=== PATIENT | female | born 1985 | race Caucasian/White ===

== ENCOUNTER 2018-04-05 12:28 | Emergency (ER) | payer MEDICAID, OTHER ==
[~2018-04-05] VITALS: Ht 167.6 cm; Wt 122.2 kg
[~2018-04-05 12:28] MED LIST: GLY5T PO; METF-370 PO
[2018-04-05 15:06] LABS: Basophils # (auto) 0 uL; Basophils % (auto) 0.4 % (0.0-2.0); Eosinophils # (auto) 0.1 uL; Eosinophils % (auto) 1.1 % (0.0-7.0); Hematocrit 42.5 % (36.0-46.0); Hemoglobin 14.4 g/dL (12.2-16.2); Lymphocytes # (auto) 2.8 uL; Mean Corpuscular Hemoglobin 31.4 pg (28.0-32.0); Mean Corpuscular Hgb Conc. 33.8 g/dL (32.0-36.0); Mean Corpuscular Volume 92.7 fL (80.0-100.0); Monocytes # (auto) 0.9 uL; Monocytes % (auto) 7.7 % (0.0-12.0); Neutrophils # (auto) 7.5 uL; Neutrophils % (auto) 65.8 % (37.0-80.0); Nucleated Red Blood Cells % 0.3 %; Platelet Count (auto) 214 10^3/uL (140-450); Red Blood Cells 4.58 10^6/uL (4.0-5.20); Red Cell Distribution Width 13.6 % (11.8-14.3); White Blood Cell 11.4 10^3/uL (4.4-10.8)
[2018-04-05 15:46] LABS: Alanine Aminotransferase 116 U/L (13-56); Albumin 3.5 g/dL (3.4-5.0); Alkaline Phosphatase 112 U/L (45-117); Anion Gap 11 (5-15); Aspartate Aminotransferase 53 U/L (15-37); BUN/Creatinine Ratio 13.8; Bilirubin, Total 0.5 mg/dL (0.2-1.0); Blood Urea Nitrogen 11 mg/dL (7-18); Calcium 8.8 mg/dL (8.5-10.1); Carbon Dioxide 24 mmol/L (21-32); Chloride 100 mmol/L (98-107); GFR African American 106 mL/min; GFR Non-African American 87 mL/min; Glucose 361 mg/dL (74-106); Magnesium 2.3 mg/dL (1.6-2.6); Potassium 4.2 mmol/L (3.5-5.1); Sodium 135 mmol/L (136-145); Total Protein 7.7 g/dL (6.4-8.2)
[2018-04-05 18:00] VITALS: BP 135/76
== END 2018-04-05 18:10 | disposition home or self-care (01) ==
LOC: ER 12:28
DX: L03.116 Cellulitis of left lower limb (principal); E11.65 Type 2 diabetes mellitus with hyperglycemia; E78.5 Hyperlipidemia, unspecified; I10 Essential (primary) hypertension; Z79.4 Long term (current) use of insulin; Z88.6 Allergy status to analgesic agent
CPT/HCPCS: 36415; 71046; 80053; 82962; 83735; 84484; 85025; 93005

== ENCOUNTER 2018-04-20 07:19 | Emergency (ER) | payer MEDICAID, OTHER ==
[~2018-04-20] VITALS: Ht 165.1 cm; Wt 117.9 kg
[2018-04-20] MEDS ORDERED: SODIUM CHLORIDE 0.9% 1,000 ML IV ONE ×2 (08:19)
[2018-04-20] MEDS ORDERED: InsuLIN REG 1unit/0.01ml Soln (100units/ml) IV ONE (08:30)
[2018-04-20 08:32] LABS: Basophils # (auto) 0.1 uL; Basophils % (auto) 0.5 % (0.0-2.0); Eosinophils # (auto) 0.2 uL; Eosinophils % (auto) 1.4 % (0.0-7.0); Hematocrit 41.4 % (36.0-46.0); Hemoglobin 13.6 g/dL (12.2-16.2); Lymphocytes # (auto) 3.3 uL; Lymphocytes % (auto) 28.7 % (10.0-50.0); Mean Corpuscular Hemoglobin 30.3 pg (28.0-32.0); Mean Corpuscular Hgb Conc. 32.7 g/dL (32.0-36.0); Mean Corpuscular Volume 92.7 fL (80.0-100.0); Neutrophils # (auto) 6.9 uL; Neutrophils % (auto) 60.4 % (37.0-80.0); Nucleated Red Blood Cells % 0.2 %; Platelet Count (auto) 233 10^3/uL (140-450); Red Blood Cells 4.47 10^6/uL (4.0-5.20); Red Cell Distribution Width 13.4 % (11.8-14.3); White Blood Cell 11.4 10^3/uL (4.4-10.8)
[2018-04-20 08:51] LABS: Albumin 3.5 g/dL (3.4-5.0); BUN/Creatinine Ratio 20.5; Bilirubin, Total 0.3 mg/dL (0.2-1.0); Calcium 8.7 mg/dL (8.5-10.1); Potassium 4.3 mmol/L (3.5-5.1); Total Protein 7.3 g/dL (6.4-8.2)
[2018-04-20 09:18] LABS: Urine Bacteria FEW /hpf (None Seen); Urine Blood 1+ /uL (Negative); Urine Specific Gravity 1.031 (1.001-1.035); Urine WBC 1 /hpf (0 - 5)
[2018-04-20 10:04] VITALS: BP 112/69
== END 2018-04-20 11:45 | disposition home or self-care (01) ==
LOC: EDBD 07:19 → ER 07:19
DX: E11.65 Type 2 diabetes mellitus with hyperglycemia (principal); I10 Essential (primary) hypertension; E78.5 Hyperlipidemia, unspecified; Z79.84 Long term (current) use of oral hypoglycemic drugs
CPT/HCPCS: 36415; 70450; 80053; 81001; 82962; 84702; 85025; 96361; 96374; 99285; J1815

== ENCOUNTER 2018-11-13 22:54 | Emergency (ER) | payer MEDICAID ==
[~2018-11-13] VITALS: Ht 165.1 cm; Wt 131.5 kg
[2018-11-13] MEDS ORDERED: InsuLIN REG 1unit/0.01ml Soln (100units/ml) IV ONE (23:45)
[2018-11-13] MEDS ORDERED: SODIUM CHLORIDE 0.9% 1,000 ML IV ONE (23:45)
[2018-11-13 23:53] LABS: Basophils # (auto) 0.1 uL; Eosinophils # (auto) 0.2 uL; Hematocrit 44.1 % (36.0-46.0); Hemoglobin 15.1 g/dL (12.2-16.2); Lymphocytes # (auto) 4.1 uL; Lymphocytes % (auto) 35.3 % (10.0-50.0); Mean Corpuscular Hemoglobin 31.2 pg (28.0-32.0); Mean Corpuscular Hgb Conc. 34.2 g/dL (32.0-36.0); Mean Corpuscular Volume 91.2 fL (80.0-100.0); Monocytes # (auto) 0.8 uL; Monocytes % (auto) 6.6 % (0.0-12.0); Neutrophils # (auto) 6.4 uL; Neutrophils % (auto) 55.1 % (37.0-80.0); Platelet Count (auto) 247 10^3/uL (140-450); Red Blood Cells 4.83 10^6/uL (4.0-5.20); White Blood Cell 11.7 10^3/uL (4.4-10.8)
[2018-11-13 23:58] LABS: Urine Bacteria NONE SEEN /hpf (None Seen); Urine Blood TRACE /uL (Negative); Urine Budding Yeast OCCASIONAL /hpf (None Seen); Urine Specific Gravity 1.031 (1.001-1.035); Urine WBC <1 /hpf (0 - 5)
[2018-11-14 00:06] LABS: Chloride 94 mmol/L (98-107); Sodium 129 mmol/L (136-145)
[2018-11-14 00:09] LABS: Albumin 3.2 g/dL (3.4-5.0); Alcohol, Urine < 3.0 mg/dL (0-5); Calcium 8.1 mg/dL (8.5-10.1); Carbon Dioxide 21 mmol/L (21-32)
[2018-11-14 00:11] LABS: Amphetamine Screen, Urine NEGATIVE (NEGATIVE); Barbiturate Scree,Urine NEGATIVE (NEGATIVE); Benzodiazephine Screen, Urine NEGATIVE (NEGATIVE); Cocaine Screen, Urine NEGATIVE (NEGATIVE); Opiate Scree,Urine NEGATIVE (NEGATIVE); Phencyclidine Screen, Urine NEGATIVE (NEGATIVE)
[2018-11-14 00:12] LABS: GFR African American 93 mL/min; GFR Non-African American 77 mL/min
[2018-11-14 00:15] LABS: Alkaline Phosphatase 230 U/L (45-117); Bilirubin, Total 0.3 mg/dL (0.2-1.0); Total Protein 7.6 g/dL (6.4-8.2)
[2018-11-14 00:17] LABS: BUN/Creatinine Ratio 21.3; Blood Urea Nitrogen 19 mg/dL (7-18)
[2018-11-14 00:33] LABS: Aspartate Aminotransferase 44 U/L (15-37); Glucose 576 mg/dL (74-106)
[2018-11-14 00:34] LABS: Alanine Aminotransferase 42 U/L (13-56)
[2018-11-14 00:38] LABS: Cannabinoid Screen, Urine NEGATIVE (NEGATIVE)
[2018-11-14 01:37] LABS: Anion Gap 14 (5-15)
[2018-11-14] MEDS ORDERED: SODIUM CHLORIDE 0.9% 1,000 ML IV ONE (05:30)
[2018-11-14 05:43] VITALS: BP 115/61
== END 2018-11-14 05:48 | disposition home or self-care (01) ==
LOC: ER 22:54
DX: E11.65 Type 2 diabetes mellitus with hyperglycemia (principal); R46.89 Other symptoms and signs involving appearance and behavior; I10 Essential (primary) hypertension; E78.00 Pure hypercholesterolemia, unspecified; Z88.8 Allergy status to other drugs, medicaments and biological substances; Z79.899 Other long term (current) drug therapy
CPT/HCPCS: 36415; 36600; 71045; 80053; 80307; 81001; 82010; 82805; 82962; 83880; 84484; 84702; 85025; 85379; 96361; 96374; 99284; J1815; J7030

== ENCOUNTER 2020-12-30 19:58 | Inpatient (IN) | payer MEDICAID ==
[~2020-12-30] VITALS: Ht 167.6 cm; Wt 113.3 kg
[~2020-12-30 19:58] MED LIST changes: -GLY5T PO; +GLYB5TAB9 PO
[2020-12-30] MEDS ORDERED: SODIUM CHLORIDE 0.9% 1,000 ML IV ONE (21:15)
[2020-12-30 22:15] LABS: Basophils # (auto) 0.1 10 ^3/uL (0-0.2); Basophils % (auto) 0.6 % (0.0-2.0); Eosinophils # (auto) 0.3 10 ^3/uL (0-0.8); Eosinophils % (auto) 3.1 % (0.0-7.0); Hematocrit 35.8 % (36.0-46.0); Hemoglobin 12.6 g/dL (12.2-16.2); Lymphocytes # (auto) 3.3 10 ^3/uL (0.4-5.4); Lymphocytes % (auto) 30.1 % (10.0-50.0); Mean Corpuscular Hemoglobin 32.1 pg (28.0-32.0); Mean Corpuscular Hgb Conc. 35.2 g/dL (32.0-36.0); Mean Corpuscular Volume 91.2 fL (80.0-100.0); Monocytes # (auto) 0.8 10 ^3/uL (0-1.3); Monocytes % (auto) 7.3 % (0.0-12.0); Neutrophils # (auto) 6.4 10 ^3/uL (1.6-8.6); Neutrophils % (auto) 58.9 % (37.0-80.0); Nucleated Red Blood Cells % 0.1 %; Platelet Count (auto) 299 10^3/uL (140-450); Red Blood Cells 3.93 10^6/uL (4.0-5.20); Red Cell Distribution Width 15.2 % (11.8-14.3); White Blood Cell 10.8 10^3/uL (4.4-10.8)
[2020-12-30 22:37] LABS: Urine Bacteria NONE SEEN /hpf (None Seen); Urine Blood Negative /uL (Negative); Urine Specific Gravity 1.031 (1.001-1.035); Urine WBC 1 /hpf (0 - 5)
[2020-12-30 22:43] LABS: Albumin 3.1 g/dL (3.4-5.0); BUN/Creatinine Ratio 24.5; Bilirubin, Total 0.3 mg/dL (0.2-1.0); Calcium 8.7 mg/dL (8.5-10.1); Total Protein 8.2 g/dL (6.4-8.2)
[2020-12-30 22:55] LABS: Alcohol, Urine < 3.0 mg/dL (0-10); Amphetamine Screen, Urine NEGATIVE (NEGATIVE); Barbiturate Scree,Urine NEGATIVE (NEGATIVE); Benzodiazephine Screen, Urine NEGATIVE (NEGATIVE); Cannabinoid Screen, Urine NEGATIVE (NEGATIVE); Opiate Scree,Urine NEGATIVE (NEGATIVE); Phencyclidine Screen, Urine NEGATIVE (NEGATIVE)
[2020-12-30 23:00] LABS: Cocaine Screen, Urine NEGATIVE (NEGATIVE)
[2020-12-30] MEDS ORDERED: PIPERACILLIN-TAZOB 3.375GM 100 ML IV ONE (23:00)
[2020-12-30] MEDS ORDERED: InsuLIN REG 1unit/0.01ml Soln (100units/ml) IV ONE (23:00)
[2020-12-30] MEDS ORDERED: VANCOMYCIN 1GM/250ML 250 ML IV ONE (23:00)
[2020-12-31] MEDS ORDERED: VANCOMYCIN PER PHARMACY 0 MG IV SCH (02:45)
[2020-12-31] MEDS ORDERED: MORPHINE SULF INJ 2 MG/ML SYRINGE 1ML IV PRN (02:45)
[2020-12-31] MEDS ORDERED: DEXTROSE (50%) 50ML SYRG IV PRN ×2 (02:45→10:45)
[2020-12-31] MEDS ORDERED: NITROGLYCERIN 0.4 MG SL TAB SL PRN (02:45)
[2020-12-31] MEDS ORDERED: TEMAZEPAM 15 MG CAP PO PRN (02:45)
[2020-12-31 06:00] VITALS: BP 131/72
[2020-12-31] MEDS ORDERED: ACCU-CHEK COMFORT CURVE STRIP VI SCH (06:00)
[2020-12-31] MEDS ORDERED: InsuLIN REG 1unit/0.01ml Soln (100units/ml) SC SCH (06:00)
[2020-12-31] MEDS: ONDANSETRON HCL 4 MG/2 ML VIAL IV PRN (06:41)
[2020-12-31 08:30] VITALS: BP 144/83
[2020-12-31] MEDS ORDERED: cefTRIAXone 1GM/50ML D5W 50 ML IV SCH (09:00)
[2020-12-31] MEDS: FAMOTIDINE 20 MG TAB PO SCH ×2 (09:32→21:46)
[2020-12-31] MEDS: VANCOMYCIN 1GM/250ML 250 ML IV SCH ×2 (10:00→17:46)
[2020-12-31] MEDS ORDERED: INSULIN LANTUS (GLARGINE) 1 /0.01ml (100units/ml) SC ONE (10:45)
[2020-12-31 11:59] LABS: INR 1.07 (0.9-1.15); Partial Thromboplastin Time 22.5 sec (23.0-31.2)
[2020-12-31] MEDS: InsuLIN REG 1unit/0.01ml Soln (100units/ml) SC SCH ×3 (12:15→23:51)
[2020-12-31 12:30] VITALS: BP 155/92
[2020-12-31] MEDS: ACCU-CHEK COMFORT CURVE STRIP VI SCH ×3 (12:35→23:46)
[2020-12-31 17:00] VITALS: BP 136/73
[2020-12-31] MEDS ORDERED: diphenhdrAMINE HCL 50 MG/1 ML VL IV ONE (19:00)
[2020-12-31] MEDS ORDERED: FAMOTIDINE (10MG/ML) 2ML VL IV ONE (19:00)
[2020-12-31] MEDS ORDERED: diphenhdrAMINE HCL 50 MG/1 ML VL ONE (19:02)
[2020-12-31] MEDS ORDERED: methylPREDNISolone SOD SUCC 125 MG/2 ML VL IV ONE (19:15)
[2020-12-31] MEDS: INSULIN LANTUS (GLARGINE) 1 /0.01ml (100units/ml) SC SCH (21:47)
[2020-12-31 22:00] VITALS: BP 133/83
[2020-12-31] MEDS: ACETAMINOPHEN 325 MG TAB PO PRN (22:53)
[2021-01-01] MEDS: VANCOMYCIN 1GM/250ML 250 ML IV SCH ×4 (01:57→22:06)
[2021-01-01 05:00] VITALS: BP 129/80
[2021-01-01 05:54] LABS: Basophils # (auto) 0 10 ^3/uL (0-0.2); Basophils % (auto) 0.2 % (0.0-2.0); Eosinophils # (auto) 0 10 ^3/uL (0-0.8); Hematocrit 37.6 % (36.0-46.0); Lymphocytes # (auto) 1.4 10 ^3/uL (0.4-5.4); Lymphocytes % (auto) 9.2 % (10.0-50.0); Mean Corpuscular Hemoglobin 31.7 pg (28.0-32.0); Mean Corpuscular Hgb Conc. 34.5 g/dL (32.0-36.0); Mean Corpuscular Volume 91.9 fL (80.0-100.0); Monocytes # (auto) 0.2 10 ^3/uL (0-1.3); Monocytes % (auto) 1.5 % (0.0-12.0); Neutrophils # (auto) 13.5 10 ^3/uL (1.6-8.6); Neutrophils % (auto) 89.1 % (37.0-80.0); Nucleated Red Blood Cells % 0.1 %; Platelet Count (auto) 274 10^3/uL (140-450); Red Blood Cells 4.09 10^6/uL (4.0-5.20); Red Cell Distribution Width 15.4 % (11.8-14.3); White Blood Cell 15.1 10^3/uL (4.4-10.8)
[2021-01-01 06:13] LABS: BUN/Creatinine Ratio 28.6; Calcium 8.7 mg/dL (8.5-10.1); Potassium 4.1 mmol/L (3.5-5.1)
[2021-01-01] MEDS: ACCU-CHEK COMFORT CURVE STRIP VI SCH ×4 (06:14→23:26)
[2021-01-01] MEDS: InsuLIN REG 1unit/0.01ml Soln (100units/ml) SC SCH ×4 (06:19→23:32)
[2021-01-01 09:00] VITALS: BP 126/73
[2021-01-01] MEDS ORDERED: CEFTRIAXONE SODIUM 2 GM in D5W 5% 50 ML IV SCH (10:00)
[2021-01-01] MEDS: FAMOTIDINE 20 MG TAB PO SCH ×2 (10:26→22:06)
[2021-01-01] MEDS: INSULIN LANTUS (GLARGINE) 1 /0.01ml (100units/ml) SC SCH (10:27)
[2021-01-01] MEDS: ACETAMINOPHEN 325 MG TAB PO PRN (12:36)
[2021-01-01] MEDS: INSULIN 70/30 1unit/0.01ml Susp (100units/ml) SC SCH ×2 (12:38→18:18)
[2021-01-01 12:45] VITALS: BP 132/87
[2021-01-01 17:01] VITALS: BP 109/86
[2021-01-01 22:00] VITALS: BP 165/97
[2021-01-02] MEDS ORDERED: ACE650RS PR (00:32)
[2021-01-02] MEDS ORDERED: METF-370 PO (00:32)
[2021-01-02] MEDS ORDERED: CEPH500C PO (00:32)
[2021-01-02] MEDS ORDERED: SULF400T11 PO (00:32)
[2021-01-02] MEDS: VANCOMYCIN 1GM/250ML 250 ML IV SCH ×4 (04:02→22:08)
[2021-01-02 05:00] VITALS: BP 135/76
[2021-01-02] MEDS: InsuLIN REG 1unit/0.01ml Soln (100units/ml) SC SCH ×4 (06:00→23:34)
[2021-01-02] MEDS: ACCU-CHEK COMFORT CURVE STRIP VI SCH ×4 (06:05→23:28)
[2021-01-02] MEDS: INSULIN 70/30 1unit/0.01ml Susp (100units/ml) SC SCH ×3 (08:00→17:30)
[2021-01-02 08:57] VITALS: BP 117/66
[2021-01-02] MEDS ORDERED: fentaNYL CITRATE 100 MCG/2 ML VL ONE (09:19)
[2021-01-02] MEDS ORDERED: PROPOFOL 10 MG/ML 20 ML IV ONE (09:20)
[2021-01-02] MEDS ORDERED: ONDANSETRON HCL 4 MG/2 ML VIAL ONE (09:20)
[2021-01-02] MEDS ORDERED: SODIUM CHLORIDE LOCK 10 ML ONE (09:20)
[2021-01-02] MEDS ORDERED: MIDAZOLAM HCL 1MG/1ML-2 ML VIAL ONE (09:20)
[2021-01-02] MEDS: ACETAMINOPHEN 325 MG TAB PO PRN (09:28)
[2021-01-02] MEDS ORDERED: ceFAZolin 1GM/50ML 100 ML IV ONE (09:41)
[2021-01-02] MEDS ORDERED: ceFAZolin 1GM VL ONE (10:21)
[2021-01-02] MEDS ORDERED: MORPHINE SULFATE 4 MG/ML SYR/VIAL IV PRN (10:30)
[2021-01-02] MEDS ORDERED: METOCLOPRAMIDE HCL 5MG/ml INJ 2ml VIAL IV PRN (10:30)
[2021-01-02] MEDS ORDERED: HYDROmorphone HCL 2 MG/ML VL IV PRN (10:30)
[2021-01-02 13:45] VITALS: BP 125/80
[2021-01-02 14:47] LABS: Basophils # (auto) 0.1 10 ^3/uL (0-0.2); Basophils % (auto) 0.6 % (0.0-2.0); Eosinophils # (auto) 0.1 10 ^3/uL (0-0.8); Hematocrit 35.4 % (36.0-46.0); Hemoglobin 12.1 g/dL (12.2-16.2); Lymphocytes # (auto) 2.4 10 ^3/uL (0.4-5.4); Lymphocytes % (auto) 18.9 % (10.0-50.0); Mean Corpuscular Hemoglobin 31.5 pg (28.0-32.0); Mean Corpuscular Volume 92.4 fL (80.0-100.0); Monocytes # (auto) 0.8 10 ^3/uL (0-1.3); Monocytes % (auto) 6.2 % (0.0-12.0); Neutrophils # (auto) 9.3 10 ^3/uL (1.6-8.6); Neutrophils % (auto) 73.3 % (37.0-80.0); Platelet Count (auto) 239 10^3/uL (140-450); Red Blood Cells 3.84 10^6/uL (4.0-5.20); Red Cell Distribution Width 15.8 % (11.8-14.3); White Blood Cell 12.7 10^3/uL (4.4-10.8)
[2021-01-02 15:06] LABS: Calcium 8.2 mg/dL (8.5-10.1); Potassium 4.4 mmol/L (3.5-5.1)
[2021-01-02 15:12] LABS: Cholesterol 193 mg/dL (< 200); HDL Cholesterol 36 mg/dL (40-59); LDL Cholesterol 124 mg/dL (< 100); Triglycerides 221 mg/dL (< 150)
[2021-01-02] MEDS: FAMOTIDINE 20 MG TAB PO SCH ×2 (16:35→22:08)
[2021-01-02 16:42] VITALS: BP 123/74
[2021-01-02 22:00] VITALS: BP 116/65
[2021-01-03] MEDS: VANCOMYCIN 1GM/250ML 250 ML IV SCH ×2 (03:54→10:00)
[2021-01-03] MEDS: ACETAMINOPHEN 325 MG TAB PO PRN (04:01)
[2021-01-03 05:00] VITALS: BP 125/78
[2021-01-03] MEDS: InsuLIN REG 1unit/0.01ml Soln (100units/ml) SC SCH ×4 (05:57→23:36)
[2021-01-03] MEDS: ACCU-CHEK COMFORT CURVE STRIP VI SCH ×3 (06:00→18:00)
[2021-01-03] MEDS: INSULIN 70/30 1unit/0.01ml Susp (100units/ml) SC SCH ×3 (08:30→17:30)
[2021-01-03] MEDS: FAMOTIDINE 20 MG TAB PO SCH (08:52)
[2021-01-03 09:00] VITALS: BP 101/68
[2021-01-03] MEDS ORDERED: FLUCONAZOLE 100 MG TAB PO ONE (10:00)
[2021-01-03] MEDS ORDERED: levoFLOXacin 750MG 150 ML IV SCH (10:00)
[2021-01-03] MEDS: HYDROcodone-ACET 5/325MG TAB PO PRN ×3 (10:45→21:46)
[2021-01-03 13:20] VITALS: BP 111/78
[2021-01-03 16:29] VITALS: BP 103/55
[2021-01-03] MEDS ORDERED: ERTAPENEM SOD INJ 1 GM in SODIUM CHL 0.9% 50 ML IV ONE (16:45)
[2021-01-03] MEDS ORDERED: MEROPENEM 1GM IVPB 100 ML IV SCH (18:00)
[2021-01-03] MEDS: metFORMIN HYDROCHLORIDE 500 MG TAB PO SCH (18:00)
[2021-01-03 22:00] VITALS: BP 104/58
[2021-01-04] MEDS: ACCU-CHEK COMFORT CURVE STRIP VI SCH ×4 (00:05→18:00)
[2021-01-04] MEDS: ONDANSETRON HCL 4 MG/2 ML VIAL IV PRN (03:29)
[2021-01-04 05:00] VITALS: BP 109/68
[2021-01-04] MEDS: InsuLIN REG 1unit/0.01ml Soln (100units/ml) SC SCH ×3 (06:20→18:14)
[2021-01-04] MEDS: metFORMIN HYDROCHLORIDE 500 MG TAB PO SCH ×2 (08:00→18:00)
[2021-01-04] MEDS: INSULIN 70/30 1unit/0.01ml Susp (100units/ml) SC SCH ×3 (08:00→17:30)
[2021-01-04 09:28] VITALS: BP 108/70
[2021-01-04] MEDS: levoFLOXacin 750MG 150 ML IV SCH (10:00)
[2021-01-04] MEDS: ACETAMINOPHEN 325 MG TAB PO PRN (10:27)
[2021-01-04] MEDS: ERTAPENEM SOD INJ 1 GM in SODIUM CHL 0.9% 50 ML IV SCH (10:27)
[2021-01-04 12:13] LABS: INR 1.07 (0.9-1.15); Partial Thromboplastin Time 25.1 sec (23.0-31.2)
[2021-01-04 12:58] VITALS: BP 133/90
[2021-01-04 16:54] VITALS: BP 132/54
[2021-01-04] MEDS: HYDROcodone-ACET 5/325MG TAB PO PRN (20:04)
[2021-01-04 22:00] VITALS: BP 114/77
[2021-01-05] MEDS: ACCU-CHEK COMFORT CURVE STRIP VI SCH ×4 (00:08→18:11)
[2021-01-05] MEDS: InsuLIN REG 1unit/0.01ml Soln (100units/ml) SC SCH ×3 (00:10→12:30)
[2021-01-05 05:00] VITALS: BP 127/78
[2021-01-05] MEDS: HYDROcodone-ACET 5/325MG TAB PO PRN ×2 (06:10→21:34)
[2021-01-05 08:30] VITALS: BP 124/77
[2021-01-05] MEDS: ERTAPENEM SOD INJ 1 GM in SODIUM CHL 0.9% 50 ML IV SCH (08:31)
[2021-01-05] MEDS: metFORMIN HYDROCHLORIDE 500 MG TAB PO SCH ×2 (08:32→18:15)
[2021-01-05] MEDS: INSULIN 70/30 1unit/0.01ml Susp (100units/ml) SC SCH ×3 (08:34→18:15)
[2021-01-05] MEDS ORDERED: FLUCONAZOLE 100 MG TAB PO ONE (11:45)
[2021-01-05 12:30] VITALS: BP 117/81
[2021-01-05] MEDS: levoFLOXacin 750MG 150 ML IV SCH (12:30)
[2021-01-05] MEDS: diphenhdrAMINE HCL 25 MG CAP PO SCH ×2 (12:49→22:54)
[2021-01-05] MEDS: ACETAMINOPHEN 325 MG TAB PO PRN (15:32)
[2021-01-05 17:00] VITALS: BP 114/70
[2021-01-05 22:00] VITALS: BP 119/85
[2021-01-06] MEDS: InsuLIN REG 1unit/0.01ml Soln (100units/ml) SC SCH ×4 (00:13→18:00)
[2021-01-06] MEDS: ACCU-CHEK COMFORT CURVE STRIP VI SCH ×4 (00:13→18:03)
[2021-01-06 05:00] VITALS: BP 127/79
[2021-01-06] MEDS: diphenhdrAMINE HCL 25 MG CAP PO SCH ×5 (05:44→21:09)
[2021-01-06] MEDS: INSULIN 70/30 1unit/0.01ml Susp (100units/ml) SC SCH ×3 (08:02→18:02)
[2021-01-06] MEDS: metFORMIN HYDROCHLORIDE 500 MG TAB PO SCH ×2 (08:02→18:02)
[2021-01-06] MEDS: ERTAPENEM SOD INJ 1 GM in SODIUM CHL 0.9% 50 ML IV SCH (08:56)
[2021-01-06] MEDS: levoFLOXacin 750MG 150 ML IV SCH (08:56)
[2021-01-06] MEDS: FLUCONAZOLE 100 MG TAB PO SCH (08:56)
[2021-01-06 09:00] VITALS: BP 127/86
[2021-01-06] MEDS ORDERED: LACTULOSE 20Gm/30ML SOLN PO PRN (10:15)
[2021-01-06] MEDS: LORazepam 0.5 MG TAB PO PRN ×2 (12:00→22:05)
[2021-01-06] MEDS: HYDROcodone-ACET 5/325MG TAB PO PRN (12:00)
[2021-01-06 13:00] VITALS: BP 129/91
[2021-01-06 14:48] LABS: Basophils # (auto) 0.1 10 ^3/uL (0-0.2); Basophils % (auto) 0.5 % (0.0-2.0); Eosinophils # (auto) 0.1 10 ^3/uL (0-0.8); Eosinophils % (auto) 1.5 % (0.0-7.0); Hematocrit 41.5 % (36.0-46.0); Lymphocytes # (auto) 3.1 10 ^3/uL (0.4-5.4); Lymphocytes % (auto) 31.2 % (10.0-50.0); Mean Corpuscular Hemoglobin 31.1 pg (28.0-32.0); Mean Corpuscular Hgb Conc. 33.8 g/dL (32.0-36.0); Mean Corpuscular Volume 91.8 fL (80.0-100.0); Monocytes # (auto) 0.7 10 ^3/uL (0-1.3); Monocytes % (auto) 6.9 % (0.0-12.0); Neutrophils # (auto) 5.9 10 ^3/uL (1.6-8.6); Neutrophils % (auto) 59.9 % (37.0-80.0); Nucleated Red Blood Cells % 0.1 %; Platelet Count (auto) 260 10^3/uL (140-450); Red Blood Cells 4.52 10^6/uL (4.0-5.20); Red Cell Distribution Width 14.9 % (11.8-14.3); White Blood Cell 9.8 10^3/uL (4.4-10.8)
[2021-01-06] MEDS: GABAPENTIN 300 MG CAP PO SCH ×2 (14:58→21:09)
[2021-01-06 15:03] LABS: Calcium 8.8 mg/dL (8.5-10.1); Potassium 4.2 mmol/L (3.5-5.1)
[2021-01-06 15:07] LABS: BUN/Creatinine Ratio 22.6; Bilirubin, Total 0.4 mg/dL (0.2-1.0); Total Protein 8.3 g/dL (6.4-8.2)
[2021-01-06 16:55] VITALS: BP 130/83
[2021-01-06] MEDS: DOCUSATE SOD 100 MG CAP PO SCH (21:09)
[2021-01-06 22:00] VITALS: BP 132/83
[2021-01-07] MEDS: ACCU-CHEK COMFORT CURVE STRIP VI SCH ×4 (00:12→17:18)
[2021-01-07] MEDS: InsuLIN REG 1unit/0.01ml Soln (100units/ml) SC SCH ×4 (00:23→17:18)
[2021-01-07 05:00] VITALS: BP 121/84
[2021-01-07] MEDS: GABAPENTIN 300 MG CAP PO SCH ×3 (06:02→21:55)
[2021-01-07] MEDS: diphenhdrAMINE HCL 25 MG CAP PO SCH ×4 (06:03→21:55)
[2021-01-07 09:00] VITALS: BP 123/79
[2021-01-07] MEDS: metFORMIN HYDROCHLORIDE 500 MG TAB PO SCH ×2 (09:15→17:17)
[2021-01-07] MEDS: ERTAPENEM SOD INJ 1 GM in SODIUM CHL 0.9% 50 ML IV SCH (09:16)
[2021-01-07] MEDS: FLUCONAZOLE 100 MG TAB PO SCH (09:16)
[2021-01-07] MEDS: HYDROcodone-ACET 5/325MG TAB PO PRN ×2 (09:16→20:04)
[2021-01-07] MEDS: DOCUSATE SOD 100 MG CAP PO SCH ×2 (09:21→21:55)
[2021-01-07] MEDS: INSULIN 70/30 1unit/0.01ml Susp (100units/ml) SC SCH ×3 (09:23→17:18)
[2021-01-07] MEDS ORDERED: LIDOCAINE 1% (LOCAL ANESTH.) PF 5ml SDV ID ONE (12:45)
[2021-01-07 13:00] VITALS: BP 120/69
[2021-01-07] MEDS: levoFLOXacin 750MG 150 ML IV SCH (13:10)
[2021-01-07] MEDS: LORazepam 0.5 MG TAB PO PRN ×2 (13:47→20:03)
[2021-01-07] MEDS: CEFEPIME 2 GM in SODIUM CHL 0.9% 50 ML IV SCH ×2 (15:19→21:54)
[2021-01-07 17:00] VITALS: BP 126/87
[2021-01-07] MEDS: SODIUM CHLOR 0.9% PF (SALINE LOCK) 10ML VIAL/SYR IV SCH (21:55)
[2021-01-08 02:38] VITALS: BP 138/73
[2021-01-08] MEDS: GABAPENTIN 300 MG CAP PO SCH ×3 (04:58→22:05)
[2021-01-08] MEDS: CEFEPIME 2 GM in SODIUM CHL 0.9% 50 ML IV SCH ×3 (04:59→22:03)
[2021-01-08] MEDS: diphenhdrAMINE HCL 25 MG CAP PO SCH ×4 (05:03→22:04)
[2021-01-08 05:21] VITALS: BP 107/73
[2021-01-08] MEDS: InsuLIN REG 1unit/0.01ml Soln (100units/ml) SC SCH ×5 (06:25→23:55)
[2021-01-08] MEDS: ACCU-CHEK COMFORT CURVE STRIP VI SCH ×5 (06:25→23:55)
[2021-01-08] MEDS: INSULIN 70/30 1unit/0.01ml Susp (100units/ml) SC SCH ×3 (08:18→17:32)
[2021-01-08] MEDS: FLUCONAZOLE 100 MG TAB PO SCH (08:18)
[2021-01-08] MEDS: SODIUM CHLOR 0.9% PF (SALINE LOCK) 10ML VIAL/SYR IV SCH ×2 (08:19→22:04)
[2021-01-08] MEDS: metFORMIN HYDROCHLORIDE 500 MG TAB PO SCH ×2 (08:19→17:33)
[2021-01-08] MEDS: DOCUSATE SOD 100 MG CAP PO SCH ×2 (08:19→22:04)
[2021-01-08] MEDS: LORazepam 0.5 MG TAB PO PRN ×2 (08:19→17:33)
[2021-01-08 09:00] VITALS: BP 132/86
[2021-01-08 13:00] VITALS: BP 122/85
[2021-01-08 17:00] VITALS: BP 101/58
[2021-01-08] MEDS: HYDROcodone-ACET 5/325MG TAB PO PRN (19:31)
[2021-01-08 22:00] VITALS: BP 133/75
[2021-01-09 05:00] VITALS: BP 147/88
[2021-01-09] MEDS: CEFEPIME 2 GM in SODIUM CHL 0.9% 50 ML IV SCH ×3 (05:59→22:29)
[2021-01-09] MEDS: GABAPENTIN 300 MG CAP PO SCH ×3 (05:59→22:30)
[2021-01-09] MEDS: ACCU-CHEK COMFORT CURVE STRIP VI SCH ×3 (06:00→18:09)
[2021-01-09] MEDS: InsuLIN REG 1unit/0.01ml Soln (100units/ml) SC SCH ×3 (06:00→18:10)
[2021-01-09] MEDS: diphenhdrAMINE HCL 25 MG CAP PO SCH ×4 (06:01→22:29)
[2021-01-09 09:00] VITALS: BP 116/74
[2021-01-09] MEDS: metFORMIN HYDROCHLORIDE 500 MG TAB PO SCH ×2 (09:15→17:54)
[2021-01-09] MEDS: INSULIN 70/30 1unit/0.01ml Susp (100units/ml) SC SCH ×3 (09:16→18:09)
[2021-01-09] MEDS: DOCUSATE SOD 100 MG CAP PO SCH ×2 (10:17→22:30)
[2021-01-09] MEDS: FLUCONAZOLE 100 MG TAB PO SCH (10:17)
[2021-01-09] MEDS: SODIUM CHLOR 0.9% PF (SALINE LOCK) 10ML VIAL/SYR IV SCH ×2 (10:17→22:29)
[2021-01-09] MEDS: HYDROcodone-ACET 5/325MG TAB PO PRN (10:19)
[2021-01-09] MEDS ORDERED: ENOXAPARIN SOD 40 MG/0.4 ML SYRINGE SC ONE (11:15)
[2021-01-09] MEDS: ASPirin-EC 81 mg tab PO SCH (12:22)
[2021-01-09 12:55] VITALS: BP 127/85
[2021-01-09] MEDS: LORazepam 0.5 MG TAB PO PRN (14:18)
[2021-01-09 16:41] VITALS: BP 109/62
[2021-01-09 22:00] VITALS: BP 106/72
[2021-01-10] MEDS: ACCU-CHEK COMFORT CURVE STRIP VI SCH ×4 (00:15→18:01)
[2021-01-10] MEDS: InsuLIN REG 1unit/0.01ml Soln (100units/ml) SC SCH ×4 (00:15→18:00)
[2021-01-10 05:00] VITALS: BP 106/65
[2021-01-10] MEDS: GABAPENTIN 300 MG CAP PO SCH ×3 (06:46→22:07)
[2021-01-10] MEDS: CEFEPIME 2 GM in SODIUM CHL 0.9% 50 ML IV SCH ×3 (06:47→22:09)
[2021-01-10] MEDS: diphenhdrAMINE HCL 25 MG CAP PO SCH ×2 (06:49→12:04)
[2021-01-10] MEDS: ONDANSETRON HCL 4 MG/2 ML VIAL IV PRN (07:52)
[2021-01-10] MEDS: metFORMIN HYDROCHLORIDE 500 MG TAB PO SCH ×2 (07:52→17:59)
[2021-01-10] MEDS: INSULIN 70/30 1unit/0.01ml Susp (100units/ml) SC SCH ×3 (07:53→18:01)
[2021-01-10] MEDS: HYDROcodone-ACET 5/325MG TAB PO PRN ×2 (08:01→18:24)
[2021-01-10 09:08] VITALS: BP 118/70
[2021-01-10] MEDS: DOCUSATE SOD 100 MG CAP PO SCH ×2 (10:00→22:07)
[2021-01-10] MEDS ORDERED: ENOXAPARIN SOD 40 MG/0.4 ML SYRINGE SC SCH (10:00)
[2021-01-10] MEDS: SODIUM CHLOR 0.9% PF (SALINE LOCK) 10ML VIAL/SYR IV SCH ×2 (10:13→22:08)
[2021-01-10] MEDS: ASPirin-EC 81 mg tab PO SCH (10:15)
[2021-01-10 13:00] VITALS: BP 113/77
[2021-01-10] MEDS: diphenhdrAMINE HCL 25 MG CAP PO PRN (15:29)
[2021-01-10 16:37] VITALS: BP 136/79
[2021-01-10 22:00] VITALS: BP 131/84
[2021-01-11] MEDS: ACCU-CHEK COMFORT CURVE STRIP VI SCH ×4 (00:09→17:38)
[2021-01-11] MEDS: InsuLIN REG 1unit/0.01ml Soln (100units/ml) SC SCH ×4 (00:12→17:39)
[2021-01-11 05:00] VITALS: BP 131/79
[2021-01-11] MEDS: diphenhdrAMINE HCL 25 MG CAP PO PRN ×2 (07:08→14:24)
[2021-01-11] MEDS: CEFEPIME 2 GM in SODIUM CHL 0.9% 50 ML IV SCH ×3 (07:09→21:47)
[2021-01-11] MEDS: GABAPENTIN 300 MG CAP PO SCH ×3 (07:09→21:08)
[2021-01-11] MEDS: metFORMIN HYDROCHLORIDE 500 MG TAB PO SCH ×2 (07:56→17:41)
[2021-01-11] MEDS: INSULIN 70/30 1unit/0.01ml Susp (100units/ml) SC SCH ×3 (07:57→17:40)
[2021-01-11 09:00] VITALS: BP 154/93
[2021-01-11] MEDS: DOCUSATE SOD 100 MG CAP PO SCH ×2 (10:00→21:47)
[2021-01-11] MEDS: ASPirin-EC 81 mg tab PO SCH (11:07)
[2021-01-11] MEDS: SODIUM CHLOR 0.9% PF (SALINE LOCK) 10ML VIAL/SYR IV SCH ×2 (11:07→21:47)
[2021-01-11] MEDS: HYDROcodone-ACET 5/325MG TAB PO PRN ×2 (11:08→21:08)
[2021-01-11] MEDS: ONDANSETRON HCL 4 MG/2 ML VIAL IV PRN (12:25)
[2021-01-11 12:45] VITALS: BP 135/80
[2021-01-11 16:39] VITALS: BP 112/80
[2021-01-11] MEDS: LORazepam 0.5 MG TAB PO PRN (21:07)
[2021-01-11 22:00] VITALS: BP 124/75
[2021-01-12] MEDS: InsuLIN REG 1unit/0.01ml Soln (100units/ml) SC SCH ×4 (00:36→17:23)
[2021-01-12 05:00] VITALS: BP 133/78
[2021-01-12] MEDS: GABAPENTIN 300 MG CAP PO SCH ×3 (05:55→22:36)
[2021-01-12] MEDS: HYDROcodone-ACET 5/325MG TAB PO PRN (05:55)
[2021-01-12] MEDS: diphenhdrAMINE HCL 25 MG CAP PO PRN (05:56)
[2021-01-12] MEDS: ACCU-CHEK COMFORT CURVE STRIP VI SCH ×4 (05:56→17:38)
[2021-01-12] MEDS: CEFEPIME 2 GM in SODIUM CHL 0.9% 50 ML IV SCH ×3 (05:56→22:35)
[2021-01-12 06:49] LABS: Basophils # (auto) 0 10 ^3/uL (0-0.2); Basophils % (auto) 0.5 % (0.0-2.0); Eosinophils # (auto) 0.1 10 ^3/uL (0-0.8); Hematocrit 34.6 % (36.0-46.0); Hemoglobin 12.1 g/dL (12.2-16.2); Lymphocytes # (auto) 3.5 10 ^3/uL (0.4-5.4); Lymphocytes % (auto) 39.8 % (10.0-50.0); Mean Corpuscular Hemoglobin 31.2 pg (28.0-32.0); Mean Corpuscular Hgb Conc. 35.1 g/dL (32.0-36.0); Mean Corpuscular Volume 88.9 fL (80.0-100.0); Monocytes # (auto) 0.7 10 ^3/uL (0-1.3); Monocytes % (auto) 8.1 % (0.0-12.0); Neutrophils # (auto) 4.5 10 ^3/uL (1.6-8.6); Neutrophils % (auto) 50.6 % (37.0-80.0); Platelet Count (auto) 262 10^3/uL (140-450); Red Blood Cells 3.89 10^6/uL (4.0-5.20); Red Cell Distribution Width 13.7 % (11.8-14.3); White Blood Cell 8.9 10^3/uL (4.4-10.8)
[2021-01-12 07:16] LABS: BUN/Creatinine Ratio 38.7; Calcium 8.2 mg/dL (8.5-10.1)
[2021-01-12] MEDS: metFORMIN HYDROCHLORIDE 500 MG TAB PO SCH ×2 (08:01→17:38)
[2021-01-12] MEDS: LORazepam 0.5 MG TAB PO PRN ×2 (08:01→22:43)
[2021-01-12] MEDS: INSULIN 70/30 1unit/0.01ml Susp (100units/ml) SC SCH ×3 (08:15→17:26)
[2021-01-12 09:00] VITALS: BP 140/88
[2021-01-12] MEDS: DOCUSATE SOD 100 MG CAP PO SCH ×2 (10:06→22:00)
[2021-01-12] MEDS: ASPirin-EC 81 mg tab PO SCH (10:06)
[2021-01-12] MEDS: SODIUM CHLOR 0.9% PF (SALINE LOCK) 10ML VIAL/SYR IV SCH ×2 (10:07→22:35)
[2021-01-12 12:29] VITALS: BP 123/69
[2021-01-12 16:41] VITALS: BP 120/77
[2021-01-12 22:00] VITALS: BP 136/88
[2021-01-13] MEDS: ACCU-CHEK COMFORT CURVE STRIP VI SCH ×5 (00:21→23:05)
[2021-01-13] MEDS: InsuLIN REG 1unit/0.01ml Soln (100units/ml) SC SCH ×5 (00:22→23:10)
[2021-01-13 05:00] VITALS: BP 135/86
[2021-01-13] MEDS: CEFEPIME 2 GM in SODIUM CHL 0.9% 50 ML IV SCH ×3 (05:56→22:07)
[2021-01-13] MEDS: GABAPENTIN 300 MG CAP PO SCH ×3 (05:56→22:07)
[2021-01-13] MEDS: metFORMIN HYDROCHLORIDE 500 MG TAB PO SCH ×2 (08:49→17:51)
[2021-01-13] MEDS: INSULIN 70/30 1unit/0.01ml Susp (100units/ml) SC SCH ×3 (08:51→17:51)
[2021-01-13 09:00] VITALS: BP 152/80
[2021-01-13] MEDS: DOCUSATE SOD 100 MG CAP PO SCH ×2 (10:00→22:00)
[2021-01-13] MEDS: SODIUM CHLOR 0.9% PF (SALINE LOCK) 10ML VIAL/SYR IV SCH ×2 (10:01→22:08)
[2021-01-13] MEDS: ASPirin-EC 81 mg tab PO SCH (10:02)
[2021-01-13] MEDS: HYDROcodone-ACET 5/325MG TAB PO PRN (10:58)
[2021-01-13 13:00] VITALS: BP 123/75
[2021-01-13 16:37] VITALS: BP 130/80
[2021-01-13] MEDS: ACETAMINOPHEN 325 MG TAB PO PRN (21:17)
[2021-01-13] MEDS: LORazepam 0.5 MG TAB PO PRN (21:17)
[2021-01-13 22:00] VITALS: BP 125/81
[2021-01-14 05:00] VITALS: BP 116/74
[2021-01-14] MEDS: ACCU-CHEK COMFORT CURVE STRIP VI SCH ×4 (05:53→22:50)
[2021-01-14] MEDS: GABAPENTIN 300 MG CAP PO SCH ×3 (05:53→22:25)
[2021-01-14] MEDS: CEFEPIME 2 GM in SODIUM CHL 0.9% 50 ML IV SCH ×3 (05:53→22:24)
[2021-01-14] MEDS: InsuLIN REG 1unit/0.01ml Soln (100units/ml) SC SCH ×4 (05:54→22:42)
[2021-01-14 06:32] LABS: Basophils # (auto) 0.1 10 ^3/uL (0-0.2); Basophils % (auto) 0.6 % (0.0-2.0); Eosinophils # (auto) 0.1 10 ^3/uL (0-0.8); Eosinophils % (auto) 1.4 % (0.0-7.0); Hematocrit 33.3 % (36.0-46.0); Hemoglobin 11.9 g/dL (12.2-16.2); Lymphocytes # (auto) 2.7 10 ^3/uL (0.4-5.4); Lymphocytes % (auto) 29.3 % (10.0-50.0); Mean Corpuscular Hemoglobin 31.5 pg (28.0-32.0); Mean Corpuscular Hgb Conc. 35.7 g/dL (32.0-36.0); Mean Corpuscular Volume 88.4 fL (80.0-100.0); Monocytes # (auto) 0.8 10 ^3/uL (0-1.3); Monocytes % (auto) 8.4 % (0.0-12.0); Neutrophils # (auto) 5.5 10 ^3/uL (1.6-8.6); Neutrophils % (auto) 60.3 % (37.0-80.0); Platelet Count (auto) 243 10^3/uL (140-450); Red Blood Cells 3.77 10^6/uL (4.0-5.20); White Blood Cell 9.1 10^3/uL (4.4-10.8)
[2021-01-14 06:52] LABS: BUN/Creatinine Ratio 25.6; Calcium 8.4 mg/dL (8.5-10.1); Potassium 3.8 mmol/L (3.5-5.1)
[2021-01-14] MEDS: INSULIN 70/30 1unit/0.01ml Susp (100units/ml) SC SCH ×3 (08:00→17:30)
[2021-01-14] MEDS: metFORMIN HYDROCHLORIDE 500 MG TAB PO SCH ×2 (08:00→17:42)
[2021-01-14] MEDS: LORazepam 0.5 MG TAB PO PRN ×2 (08:41→22:26)
[2021-01-14 09:00] VITALS: BP 145/86
[2021-01-14] MEDS: DOCUSATE SOD 100 MG CAP PO SCH ×2 (09:24→22:00)
[2021-01-14] MEDS: ASPirin-EC 81 mg tab PO SCH (09:24)
[2021-01-14] MEDS: SODIUM CHLOR 0.9% PF (SALINE LOCK) 10ML VIAL/SYR IV SCH ×2 (10:00→22:25)
[2021-01-14 13:00] VITALS: BP 142/85
[2021-01-14 17:00] VITALS: BP 143/97
[2021-01-15 05:10] VITALS: BP 128/78
[2021-01-15] MEDS: ACCU-CHEK COMFORT CURVE STRIP VI SCH ×4 (05:45→23:13)
[2021-01-15] MEDS: CEFEPIME 2 GM in SODIUM CHL 0.9% 50 ML IV SCH ×3 (05:46→23:12)
[2021-01-15] MEDS: GABAPENTIN 300 MG CAP PO SCH ×3 (05:46→23:13)
[2021-01-15] MEDS: InsuLIN REG 1unit/0.01ml Soln (100units/ml) SC SCH ×4 (05:48→23:14)
[2021-01-15] MEDS: metFORMIN HYDROCHLORIDE 500 MG TAB PO SCH ×2 (08:00→18:36)
[2021-01-15] MEDS: INSULIN 70/30 1unit/0.01ml Susp (100units/ml) SC SCH ×3 (08:00→17:30)
[2021-01-15 09:00] VITALS: BP 130/86
[2021-01-15] MEDS: ASPirin-EC 81 mg tab PO SCH (09:24)
[2021-01-15] MEDS: SODIUM CHLOR 0.9% PF (SALINE LOCK) 10ML VIAL/SYR IV SCH ×2 (09:25→23:28)
[2021-01-15] MEDS: DOCUSATE SOD 100 MG CAP PO SCH ×2 (10:00→23:13)
[2021-01-15] MEDS ORDERED: LISINOPRIL 5 MG TAB PO ONE (11:30)
[2021-01-15 13:26] VITALS: BP 142/86
[2021-01-15 17:03] VITALS: BP 126/84
[2021-01-15] MEDS: HYDROcodone-ACET 5/325MG TAB PO PRN (18:37)
[2021-01-15 22:00] VITALS: BP 124/83
[2021-01-15] MEDS: ATORVASTATIN 20 MG TAB PO SCH (23:13)
[2021-01-16 05:00] VITALS: BP 123/68
[2021-01-16] MEDS: GABAPENTIN 300 MG CAP PO SCH ×3 (05:36→21:32)
[2021-01-16] MEDS: ACCU-CHEK COMFORT CURVE STRIP VI SCH ×3 (05:36→18:19)
[2021-01-16] MEDS: CEFEPIME 2 GM in SODIUM CHL 0.9% 50 ML IV SCH ×3 (05:36→22:26)
[2021-01-16] MEDS: InsuLIN REG 1unit/0.01ml Soln (100units/ml) SC SCH ×3 (05:37→18:00)
[2021-01-16] MEDS: metFORMIN HYDROCHLORIDE 500 MG TAB PO SCH ×2 (08:27→18:00)
[2021-01-16] MEDS: INSULIN 70/30 1unit/0.01ml Susp (100units/ml) SC SCH ×3 (08:30→17:30)
[2021-01-16 08:47] VITALS: BP 128/71
[2021-01-16] MEDS: DOCUSATE SOD 100 MG CAP PO SCH ×2 (10:00→21:32)
[2021-01-16] MEDS: LISINOPRIL 5 MG TAB PO SCH (10:26)
[2021-01-16] MEDS: ASPirin-EC 81 mg tab PO SCH (10:26)
[2021-01-16] MEDS: SODIUM CHLOR 0.9% PF (SALINE LOCK) 10ML VIAL/SYR IV SCH ×2 (10:27→22:27)
[2021-01-16 13:00] VITALS: BP 124/67
[2021-01-16] MEDS: LORazepam 0.5 MG TAB PO PRN (18:22)
[2021-01-16] MEDS: ATORVASTATIN 20 MG TAB PO SCH (21:32)
[2021-01-16] MEDS: HYDROcodone-ACET 5/325MG TAB PO PRN (21:33)
[2021-01-16 22:22] VITALS: BP 140/90
[2021-01-17] MEDS: InsuLIN REG 1unit/0.01ml Soln (100units/ml) SC SCH ×5 (01:00→23:45)
[2021-01-17] MEDS: ACCU-CHEK COMFORT CURVE STRIP VI SCH ×5 (01:00→23:45)
[2021-01-17 05:46] VITALS: BP 153/73
[2021-01-17] MEDS: GABAPENTIN 300 MG CAP PO SCH ×3 (06:30→21:55)
[2021-01-17] MEDS: HYDROcodone-ACET 5/325MG TAB PO PRN ×2 (06:55→20:49)
[2021-01-17] MEDS: CEFEPIME 2 GM in SODIUM CHL 0.9% 50 ML IV SCH ×3 (09:00→21:55)
[2021-01-17 09:05] VITALS: BP 93/57
[2021-01-17] MEDS: metFORMIN HYDROCHLORIDE 500 MG TAB PO SCH ×2 (09:35→17:34)
[2021-01-17] MEDS: LISINOPRIL 5 MG TAB PO SCH (09:35)
[2021-01-17] MEDS: ASPirin-EC 81 mg tab PO SCH (09:36)
[2021-01-17] MEDS: SODIUM CHLOR 0.9% PF (SALINE LOCK) 10ML VIAL/SYR IV SCH ×2 (09:37→21:54)
[2021-01-17] MEDS: DOCUSATE SOD 100 MG CAP PO SCH ×2 (09:38→21:55)
[2021-01-17] MEDS: INSULIN 70/30 1unit/0.01ml Susp (100units/ml) SC SCH ×3 (09:43→17:38)
[2021-01-17 13:00] VITALS: BP 130/89
[2021-01-17] MEDS: ACETAMINOPHEN 325 MG TAB PO PRN (13:51)
[2021-01-17] MEDS ORDERED: LISI-275 PO (13:53)
[2021-01-17] MEDS ORDERED: METF-370 PO (13:53)
[2021-01-17] MEDS ORDERED: ASPI-543 PO (13:53)
[2021-01-17] MEDS ORDERED: GABA300C10 PO (13:53)
[2021-01-17] MEDS ORDERED: ATOR10TA52 PO (13:53)
[2021-01-17 16:00] VITALS: BP 139/83
[2021-01-17] MEDS ORDERED: PARoxetine 20 MG TAB PO ONE (17:15)
[2021-01-17] MEDS: ATORVASTATIN 20 MG TAB PO SCH (21:55)
[2021-01-17 23:53] VITALS: BP 121/70
[2021-01-18] MEDS: GABAPENTIN 300 MG CAP PO SCH ×3 (05:30→21:50)
[2021-01-18] MEDS: ACCU-CHEK COMFORT CURVE STRIP VI SCH ×3 (05:30→17:26)
[2021-01-18] MEDS: CEFEPIME 2 GM in SODIUM CHL 0.9% 50 ML IV SCH ×3 (05:31→21:54)
[2021-01-18] MEDS: InsuLIN REG 1unit/0.01ml Soln (100units/ml) SC SCH ×3 (05:31→17:26)
[2021-01-18] MEDS: PARoxetine 20 MG TAB PO SCH (06:20)
[2021-01-18] MEDS: ARIPIPRAZOLE 5 MG PO SCH (07:00)
[2021-01-18] MEDS: metFORMIN HYDROCHLORIDE 500 MG TAB PO SCH ×2 (08:10→17:26)
[2021-01-18] MEDS: INSULIN 70/30 1unit/0.01ml Susp (100units/ml) SC SCH ×3 (08:12→17:26)
[2021-01-18 09:00] VITALS: BP 126/70
[2021-01-18] MEDS ORDERED: PARoxetine 20 MG TAB PO SCH (10:00)
[2021-01-18] MEDS: DOCUSATE SOD 100 MG CAP PO SCH ×2 (10:00→21:51)
[2021-01-18] MEDS: ASPirin-EC 81 mg tab PO SCH (10:04)
[2021-01-18] MEDS: LISINOPRIL 5 MG TAB PO SCH (10:05)
[2021-01-18] MEDS: SODIUM CHLOR 0.9% PF (SALINE LOCK) 10ML VIAL/SYR IV SCH ×2 (10:06→21:51)
[2021-01-18 12:48] VITALS: BP 120/72
[2021-01-18] MEDS: ACETAMINOPHEN 325 MG TAB PO PRN (13:53)
[2021-01-18] MEDS: HYDROcodone-ACET 5/325MG TAB PO PRN (16:05)
[2021-01-18 16:59] VITALS: BP 128/86
[2021-01-18] MEDS: ATORVASTATIN 20 MG TAB PO SCH (21:51)
[2021-01-18 22:00] VITALS: BP 120/77
[2021-01-19] MEDS: ACCU-CHEK COMFORT CURVE STRIP VI SCH ×4 (00:22→18:00)
[2021-01-19] MEDS: ONDANSETRON HCL 4 MG/2 ML VIAL IV PRN (02:07)
[2021-01-19 05:00] VITALS: BP 127/81
[2021-01-19] MEDS: InsuLIN REG 1unit/0.01ml Soln (100units/ml) SC SCH ×4 (05:30→17:58)
[2021-01-19 06:35] LABS: Basophils # (auto) 0 10 ^3/uL (0-0.2); Basophils % (auto) 0.4 % (0.0-2.0); Eosinophils # (auto) 0.1 10 ^3/uL (0-0.8); Eosinophils % (auto) 0.9 % (0.0-7.0); Hematocrit 34.8 % (36.0-46.0); Hemoglobin 12.3 g/dL (12.2-16.2); Lymphocytes # (auto) 3.2 10 ^3/uL (0.4-5.4); Lymphocytes % (auto) 33.5 % (10.0-50.0); Mean Corpuscular Hemoglobin 31.4 pg (28.0-32.0); Mean Corpuscular Hgb Conc. 35.3 g/dL (32.0-36.0); Monocytes # (auto) 0.7 10 ^3/uL (0-1.3); Monocytes % (auto) 7.7 % (0.0-12.0); Neutrophils # (auto) 5.6 10 ^3/uL (1.6-8.6); Neutrophils % (auto) 57.5 % (37.0-80.0); Platelet Count (auto) 257 10^3/uL (140-450); Red Blood Cells 3.91 10^6/uL (4.0-5.20); Red Cell Distribution Width 14.1 % (11.8-14.3); White Blood Cell 9.7 10^3/uL (4.4-10.8)
[2021-01-19] MEDS: CEFEPIME 2 GM in SODIUM CHL 0.9% 50 ML IV SCH ×3 (06:35→21:51)
[2021-01-19] MEDS: GABAPENTIN 300 MG CAP PO SCH ×3 (06:36→21:49)
[2021-01-19] MEDS: PARoxetine 20 MG TAB PO SCH (06:36)
[2021-01-19 06:55] LABS: Calcium 8.4 mg/dL (8.5-10.1); Potassium 3.8 mmol/L (3.5-5.1)
[2021-01-19] MEDS: INSULIN 70/30 1unit/0.01ml Susp (100units/ml) SC SCH ×2 (08:00→11:46)
[2021-01-19] MEDS: metFORMIN HYDROCHLORIDE 500 MG TAB PO SCH ×2 (08:01→18:00)
[2021-01-19] MEDS: SODIUM CHLOR 0.9% PF (SALINE LOCK) 10ML VIAL/SYR IV SCH ×2 (09:30→21:49)
[2021-01-19] MEDS: LORazepam 0.5 MG TAB PO PRN ×2 (09:30→21:49)
[2021-01-19] MEDS: DOCUSATE SOD 100 MG CAP PO SCH ×3 (09:31→21:51)
[2021-01-19] MEDS: LISINOPRIL 5 MG TAB PO SCH (09:31)
[2021-01-19] MEDS: ASPirin-EC 81 mg tab PO SCH (09:31)
[2021-01-19 10:56] VITALS: BP 121/73
[2021-01-19] MEDS: ARIPIPRAZOLE 5 MG PO SCH (11:46)
[2021-01-19 13:00] VITALS: BP 127/80
[2021-01-19 17:00] VITALS: BP 115/70
[2021-01-19] MEDS: ATORVASTATIN 20 MG TAB PO SCH (21:49)
[2021-01-19 22:00] VITALS: BP 118/80
[2021-01-20] MEDS: ACCU-CHEK COMFORT CURVE STRIP VI SCH ×4 (01:30→17:44)
[2021-01-20] MEDS: InsuLIN REG 1unit/0.01ml Soln (100units/ml) SC SCH ×4 (01:30→17:47)
[2021-01-20 05:00] VITALS: BP 129/69
[2021-01-20] MEDS: ARIPIPRAZOLE 5 MG PO SCH (06:03)
[2021-01-20] MEDS: PARoxetine 20 MG TAB PO SCH (06:03)
[2021-01-20] MEDS: GABAPENTIN 300 MG CAP PO SCH ×3 (06:03→21:19)
[2021-01-20] MEDS: CEFEPIME 2 GM in SODIUM CHL 0.9% 50 ML IV SCH ×3 (06:03→21:18)
[2021-01-20] MEDS: DOCUSATE SOD 100 MG CAP PO SCH ×2 (09:26→21:18)
[2021-01-20] MEDS: ASPirin-EC 81 mg tab PO SCH (09:34)
[2021-01-20] MEDS: metFORMIN HYDROCHLORIDE 500 MG TAB PO SCH ×2 (09:34→17:44)
[2021-01-20] MEDS: LISINOPRIL 5 MG TAB PO SCH (09:34)
[2021-01-20] MEDS: SODIUM CHLOR 0.9% PF (SALINE LOCK) 10ML VIAL/SYR IV SCH ×2 (09:34→21:18)
[2021-01-20 13:00] VITALS: BP 124/68
[2021-01-20 17:00] VITALS: BP 99/63
[2021-01-20] MEDS: LORazepam 0.5 MG TAB PO PRN (17:57)
[2021-01-20] MEDS: ACETAMINOPHEN 325 MG TAB PO PRN (17:58)
[2021-01-20] MEDS: ATORVASTATIN 20 MG TAB PO SCH (21:18)
[2021-01-20] MEDS: ONDANSETRON HCL 4 MG/2 ML VIAL IV PRN (21:42)
[2021-01-20 22:00] VITALS: BP 134/86
[2021-01-21] MEDS: ACCU-CHEK COMFORT CURVE STRIP VI SCH ×5 (00:01→23:40)
[2021-01-21] MEDS: InsuLIN REG 1unit/0.01ml Soln (100units/ml) SC SCH ×5 (00:06→23:59)
[2021-01-21 05:00] VITALS: BP 100/62
[2021-01-21 06:19] LABS: Basophils # (auto) 0.1 10 ^3/uL (0-0.2); Basophils % (auto) 0.7 % (0.0-2.0); Eosinophils # (auto) 0.1 10 ^3/uL (0-0.8); Hematocrit 36.7 % (36.0-46.0); Hemoglobin 12.8 g/dL (12.2-16.2); Lymphocytes # (auto) 3.4 10 ^3/uL (0.4-5.4); Lymphocytes % (auto) 34.7 % (10.0-50.0); Mean Corpuscular Hemoglobin 31.1 pg (28.0-32.0); Mean Corpuscular Volume 88.9 fL (80.0-100.0); Monocytes # (auto) 0.8 10 ^3/uL (0-1.3); Monocytes % (auto) 8.7 % (0.0-12.0); Neutrophils # (auto) 5.3 10 ^3/uL (1.6-8.6); Neutrophils % (auto) 54.9 % (37.0-80.0); Nucleated Red Blood Cells % 0.1 %; Platelet Count (auto) 273 10^3/uL (140-450); Red Blood Cells 4.13 10^6/uL (4.0-5.20); Red Cell Distribution Width 13.8 % (11.8-14.3); White Blood Cell 9.7 10^3/uL (4.4-10.8)
[2021-01-21] MEDS: CEFEPIME 2 GM in SODIUM CHL 0.9% 50 ML IV SCH ×3 (06:21→21:00)
[2021-01-21] MEDS: GABAPENTIN 300 MG CAP PO SCH ×3 (06:21→21:00)
[2021-01-21] MEDS: ARIPIPRAZOLE 5 MG PO SCH (06:22)
[2021-01-21] MEDS: PARoxetine 20 MG TAB PO SCH (06:23)
[2021-01-21 06:40] LABS: Potassium 3.9 mmol/L (3.5-5.1)
[2021-01-21 06:53] LABS: BUN/Creatinine Ratio 37.5; Calcium 8.3 mg/dL (8.5-10.1)
[2021-01-21] MEDS: metFORMIN HYDROCHLORIDE 500 MG TAB PO SCH ×2 (08:24→17:58)
[2021-01-21] MEDS: DOCUSATE SOD 100 MG CAP PO SCH ×2 (08:24→21:00)
[2021-01-21] MEDS: SODIUM CHLOR 0.9% PF (SALINE LOCK) 10ML VIAL/SYR IV SCH ×2 (08:24→21:00)
[2021-01-21] MEDS: ASPirin-EC 81 mg tab PO SCH (08:25)
[2021-01-21] MEDS: LISINOPRIL 5 MG TAB PO SCH (08:25)
[2021-01-21 09:00] VITALS: BP 139/71
[2021-01-21 13:00] VITALS: BP 111/75
[2021-01-21] MEDS: ACETAMINOPHEN 325 MG TAB PO PRN (16:20)
[2021-01-21 17:00] VITALS: BP 144/88
[2021-01-21] MEDS: ATORVASTATIN 20 MG TAB PO SCH (21:00)
[2021-01-21] MEDS: LORazepam 0.5 MG TAB PO PRN (21:01)
[2021-01-21 22:00] VITALS: BP 101/75
[2021-01-22 05:00] VITALS: BP 116/79
[2021-01-22] MEDS: CEFEPIME 2 GM in SODIUM CHL 0.9% 50 ML IV SCH ×2 (06:01→14:33)
[2021-01-22] MEDS: GABAPENTIN 300 MG CAP PO SCH ×2 (06:01→14:33)
[2021-01-22] MEDS: ARIPIPRAZOLE 5 MG PO SCH (06:01)
[2021-01-22] MEDS: PARoxetine 20 MG TAB PO SCH (06:02)
[2021-01-22] MEDS: ACCU-CHEK COMFORT CURVE STRIP VI SCH ×3 (06:03→18:29)
[2021-01-22] MEDS: InsuLIN REG 1unit/0.01ml Soln (100units/ml) SC SCH ×3 (06:13→18:29)
[2021-01-22 08:26] VITALS: BP 120/74
[2021-01-22] MEDS: metFORMIN HYDROCHLORIDE 500 MG TAB PO SCH ×2 (08:31→18:28)
[2021-01-22] MEDS: ASPirin-EC 81 mg tab PO SCH (09:07)
[2021-01-22] MEDS: DOCUSATE SOD 100 MG CAP PO SCH (09:07)
[2021-01-22] MEDS: SODIUM CHLOR 0.9% PF (SALINE LOCK) 10ML VIAL/SYR IV SCH (09:07)
[2021-01-22] MEDS: LISINOPRIL 5 MG TAB PO SCH (09:08)
[2021-01-22 12:39] VITALS: BP 136/71
[2021-01-22 13:51] LABS: Basophils # (auto) 0.1 10 ^3/uL (0-0.2); Basophils % (auto) 0.6 % (0.0-2.0); Eosinophils # (auto) 0.1 10 ^3/uL (0-0.8); Eosinophils % (auto) 1.1 % (0.0-7.0); Hematocrit 37.2 % (36.0-46.0); Hemoglobin 13.4 g/dL (12.2-16.2); Lymphocytes # (auto) 3.2 10 ^3/uL (0.4-5.4); Lymphocytes % (auto) 33.5 % (10.0-50.0); Mean Corpuscular Hemoglobin 31.8 pg (28.0-32.0); Mean Corpuscular Volume 88.4 fL (80.0-100.0); Monocytes # (auto) 0.7 10 ^3/uL (0-1.3); Monocytes % (auto) 7.9 % (0.0-12.0); Neutrophils # (auto) 5.4 10 ^3/uL (1.6-8.6); Neutrophils % (auto) 56.9 % (37.0-80.0); Nucleated Red Blood Cells % 0.1 %; Platelet Count (auto) 269 10^3/uL (140-450); Red Blood Cells 4.21 10^6/uL (4.0-5.20); Red Cell Distribution Width 13.7 % (11.8-14.3); White Blood Cell 9.4 10^3/uL (4.4-10.8)
[2021-01-22 14:14] LABS: BUN/Creatinine Ratio 35.1; Calcium 8.8 mg/dL (8.5-10.1); Potassium 4.3 mmol/L (3.5-5.1)
[2021-01-22] MEDS: HYDROcodone-ACET 5/325MG TAB PO PRN (14:33)
[2021-01-22 16:41] VITALS: BP 131/70
[2021-01-22 20:16] VITALS: BP 120/74
[2021-01-22] MEDS ORDERED: INSULIN LANTUS (GLARGINE) 1 /0.01ml (100units/ml) SC SCH (22:00)
== END 2021-01-22 21:15 | disposition home health service (06) | DRG 314 ==
LOC: ER 20:00 → OVERFLOW 12-31 02:40 → WEST WING 12-31 05:45
PROVIDERS: ADMIT Nurse Practitioner; ATTEND Internal Medicine
PROC: 0QBM0ZZ Excision of Left Tarsal, Open Approach (ICD-10-PCS; principal; 2021-01-02 10:42)
PROC: 02HV33Z Insertion of Infusion Device into Superior Vena Cava, Percutaneous Approach (ICD-10-PCS; 2021-01-07)
DX: E11.69 Type 2 diabetes mellitus with other specified complication (principal); M86.9 Osteomyelitis, unspecified; E43 Unspecified severe protein-calorie malnutrition; E11.40 Type 2 diabetes mellitus with diabetic neuropathy, unspecified; E11.621 Type 2 diabetes mellitus with foot ulcer; E87.1 Hypo-osmolality and hyponatremia; B37.3 Candidiasis of vulva and vagina; Z20.822 Contact with and (suspected) exposure to COVID-19; E11.65 Type 2 diabetes mellitus with hyperglycemia; L97.509 Non-pressure chronic ulcer of other part of unspecified foot with unspecified severity; E66.01 Morbid (severe) obesity due to excess calories; I10 Essential (primary) hypertension; N76.0 Acute vaginitis; E78.5 Hyperlipidemia, unspecified; B96.5 Pseudomonas (aeruginosa) (mallei) (pseudomallei) as the cause of diseases classified elsewhere; F31.9 Bipolar disorder, unspecified; F41.9 Anxiety disorder, unspecified; F60.9 Personality disorder, unspecified; L03.90 Cellulitis, unspecified; Z16.24 Resistance to multiple antibiotics; F15.10 Other stimulant abuse, uncomplicated; Z79.4 Long term (current) use of insulin; Z80.3 Family history of malignant neoplasm of breast; Z82.49 Family history of ischemic heart disease and other diseases of the circulatory system; Z83.3 Family history of diabetes mellitus; Z91.19 Patient's noncompliance with other medical treatment and regimen; Z79.899 Other long term (current) drug therapy; Z88.8 Allergy status to other drugs, medicaments and biological substances; Z81.8 Family history of other mental and behavioral disorders; Z68.36 Body mass index [BMI] 36.0-36.9, adult
CPT/HCPCS: 36415; 36569; 71045; 73630; 73700; 80048; 80053; 80061; 80202; 80307; 81001; 81025; 82010; 82962; 83036; 84443; 85025; 85049; 85610; 85652; 85730; 86141; 87070; 87075; 87077; 87186; 87205; 87426; 93005; 93926; 96361; 96365; 96367; 96375; G0378; J0690; J0696; J1335; J1815; J1956; J2185; J2250; J2405; J2543; J2704; J3490; J7060

== ENCOUNTER 2021-01-29 13:58 | Inpatient (IN) | payer MEDICAID ==
[~2021-01-29] VITALS: Ht 167.6 cm; Wt 115.0 kg
[~2021-01-29 13:58] MED LIST changes: +ASPI-543 PO; +ATOR10TA52 PO; +GABA300C10 PO; -GLYB5TAB9 PO; +LISI-275 PO
[2021-01-29] MEDS ORDERED: SODIUM CHLORIDE 0.9% 1,000 ML IV ONE ×2 (14:30→16:15)
[2021-01-29 14:57] LABS: Basophils # (auto) 0.1 10 ^3/uL (0-0.2); Basophils % (auto) 0.6 % (0.0-2.0); Eosinophils # (auto) 0.2 10 ^3/uL (0-0.8); Eosinophils % (auto) 1.6 % (0.0-7.0); Hematocrit 40.7 % (36.0-46.0); Hemoglobin 13.8 g/dL (12.2-16.2); Lymphocytes # (auto) 2.8 10 ^3/uL (0.4-5.4); Mean Corpuscular Hemoglobin 30.1 pg (28.0-32.0); Mean Corpuscular Hgb Conc. 33.9 g/dL (32.0-36.0); Mean Corpuscular Volume 88.8 fL (80.0-100.0); Monocytes # (auto) 0.8 10 ^3/uL (0-1.3); Monocytes % (auto) 7.5 % (0.0-12.0); Neutrophils # (auto) 6.5 10 ^3/uL (1.6-8.6); Neutrophils % (auto) 63.3 % (37.0-80.0); Nucleated Red Blood Cells % 0.1 %; Red Blood Cells 4.59 10^6/uL (4.0-5.20); White Blood Cell 10.2 10^3/uL (4.4-10.8)
[2021-01-29 15:01] LABS: Urine WBC None Seen /hpf (0 - 5)
[2021-01-29 15:28] LABS: Albumin 3.4 g/dL (3.4-5.0); BUN/Creatinine Ratio 32.7; Bilirubin, Total 0.3 mg/dL (0.2-1.0); Calcium 8.8 mg/dL (8.5-10.1); Magnesium 2.1 mg/dL (1.6-2.6); Potassium 4.2 mmol/L (3.5-5.1)
[2021-01-29 15:39] LABS: Urine Bacteria NONE SEEN /hpf (None Seen); Urine Blood Negative /uL (Negative); Urine Specific Gravity 1.034 (1.001-1.035)
[2021-01-29] MEDS ORDERED: InsuLIN REG 1unit/0.01ml Soln (100units/ml) IV ONE (15:45)
[2021-01-29] MEDS ORDERED: HYDROcodone-ACET 5/325MG TAB PO PRN (16:15)
[2021-01-29] MEDS ORDERED: NITROGLYCERIN 0.4 MG SL TAB SL PRN (16:15)
[2021-01-29] MEDS ORDERED: DEXTROSE (50%) 50ML SYRG IV PRN (16:15)
[2021-01-29] MEDS ORDERED: MORPHINE SULF INJ 2 MG/ML SYRINGE 1ML IV PRN (16:15)
[2021-01-29] MEDS ORDERED: ACETAMINOPHEN 500 MG TAB PO PRN (16:15)
[2021-01-29] MEDS ORDERED: ONDANSETRON HCL 4 MG/2 ML VIAL IV PRN (16:15)
[2021-01-29] MEDS ORDERED: cefTAZidime 2GM/NS 50 ML IV SCH (17:00)
[2021-01-29] MEDS: InsuLIN REG 1unit/0.01ml Soln (100units/ml) SC SCH ×2 (17:03)
[2021-01-29] MEDS: ACCU-CHEK COMFORT CURVE STRIP VI SCH ×2 (17:03)
[2021-01-29 21:37] VITALS: BP 123/80
[2021-01-29] MEDS: GABAPENTIN 300 MG CAP PO SCH (23:05)
[2021-01-29] MEDS: ATORVASTATIN 20 MG TAB PO SCH (23:05)
[2021-01-29] MEDS: CEFEPIME 2 GM in SODIUM CHL 0.9% 50 ML IV SCH (23:05)
[2021-01-29] MEDS: MORPHINE SULF INJ 2 MG/ML SYRINGE 1ML IV PRN (23:07)
[2021-01-30 02:09] VITALS: BP 123/80
[2021-01-30] MEDS ORDERED: PAR20T PO (03:08)
[2021-01-30] MEDS ORDERED: HYDR-4902 PO (03:08)
[2021-01-30] MEDS ORDERED: ARIP2TAB PO (03:08)
[2021-01-30 05:14] VITALS: BP 133/73
[2021-01-30] MEDS: ACCU-CHEK COMFORT CURVE STRIP VI SCH ×3 (06:21→17:34)
[2021-01-30] MEDS: GABAPENTIN 300 MG CAP PO SCH ×3 (06:21→22:47)
[2021-01-30] MEDS: CEFEPIME 2 GM in SODIUM CHL 0.9% 50 ML IV SCH ×3 (06:21→22:47)
[2021-01-30] MEDS: InsuLIN REG 1unit/0.01ml Soln (100units/ml) SC SCH ×3 (06:24→17:39)
[2021-01-30] MEDS: MORPHINE SULF INJ 2 MG/ML SYRINGE 1ML IV PRN ×3 (08:06→20:40)
[2021-01-30 09:00] VITALS: BP 125/80
[2021-01-30] MEDS: LISINOPRIL 5 MG TAB PO SCH (10:25)
[2021-01-30] MEDS: PARoxetine 20 MG TAB PO SCH (10:25)
[2021-01-30 12:32] VITALS: BP 113/75
[2021-01-30] MEDS ORDERED: DEXTROSE (50%) 50ML SYRG IV PRN (13:00)
[2021-01-30] MEDS ORDERED: INSULIN LANTUS (GLARGINE) 1 /0.01ml (100units/ml) SC ONE (13:00)
[2021-01-30 17:00] VITALS: BP 108/68
[2021-01-30] MEDS: ATORVASTATIN 20 MG TAB PO SCH (22:47)
[2021-01-30 23:09] VITALS: BP 118/74
[2021-01-31 05:15] VITALS: BP 105/53
[2021-01-31] MEDS: InsuLIN REG 1unit/0.01ml Soln (100units/ml) SC SCH ×3 (06:00→11:57)
[2021-01-31] MEDS: CEFEPIME 2 GM in SODIUM CHL 0.9% 50 ML IV SCH ×2 (06:18→14:00)
[2021-01-31] MEDS: ACCU-CHEK COMFORT CURVE STRIP VI SCH ×3 (06:18→11:55)
[2021-01-31] MEDS: GABAPENTIN 300 MG CAP PO SCH ×2 (06:18→14:00)
[2021-01-31] MEDS: MORPHINE SULF INJ 2 MG/ML SYRINGE 1ML IV PRN (06:25)
[2021-01-31] MEDS ORDERED: INSULIN LANTUS (GLARGINE) 1 /0.01ml (100units/ml) SC SCH (10:00)
[2021-01-31] MEDS: LISINOPRIL 5 MG TAB PO SCH (10:25)
[2021-01-31] MEDS: PARoxetine 20 MG TAB PO SCH (10:26)
[2021-01-31] MEDS ORDERED: GLIP10TA16 PO (10:48)
== END 2021-01-31 15:07 | disposition home health service (06) | DRG 344 ==
LOC: ER 13:58 → OVERFLOW 16:02 → EAST 20:00
PROVIDERS: ADMIT Nurse Practitioner Acute Care; ATTEND Internal Medicine Nephrology
DX: E11.69 Type 2 diabetes mellitus with other specified complication (principal); M86.8X7 Other osteomyelitis, ankle and foot; E43 Unspecified severe protein-calorie malnutrition; E11.40 Type 2 diabetes mellitus with diabetic neuropathy, unspecified; Z20.822 Contact with and (suspected) exposure to COVID-19; E11.65 Type 2 diabetes mellitus with hyperglycemia; F20.9 Schizophrenia, unspecified; L08.9 Local infection of the skin and subcutaneous tissue, unspecified; F31.9 Bipolar disorder, unspecified; I10 Essential (primary) hypertension; F41.9 Anxiety disorder, unspecified; E66.01 Morbid (severe) obesity due to excess calories; F60.9 Personality disorder, unspecified; E78.5 Hyperlipidemia, unspecified; Z79.84 Long term (current) use of oral hypoglycemic drugs; Z79.899 Other long term (current) drug therapy; Z80.3 Family history of malignant neoplasm of breast; Z82.49 Family history of ischemic heart disease and other diseases of the circulatory system; Z83.3 Family history of diabetes mellitus; Z68.41 Body mass index [BMI] 40.0-44.9, adult; Z91.013 Allergy to seafood
CPT/HCPCS: 36415; 73700; 80053; 81001; 82962; 83735; 85025; 87081; 87426; 96361; 96365; 96375; G0378; J0713; J1815

== ENCOUNTER 2021-02-12 20:33 | Inpatient (IN) | payer MEDICAID ==
[~2021-02-12] VITALS: Ht 166.4 cm; Wt 118.4 kg
[~2021-02-12 20:33] MED LIST changes: +ARIP2TAB PO; +GLIP10TA16 PO; +PAR20T PO
[2021-02-12 22:57] LABS: Basophils # (auto) 0.1 10 ^3/uL (0-0.2); Basophils % (auto) 0.6 % (0.0-2.0); Eosinophils # (auto) 0.3 10 ^3/uL (0-0.8); Eosinophils % (auto) 2.4 % (0.0-7.0); Hemoglobin 14.1 g/dL (12.2-16.2); Lymphocytes # (auto) 3.6 10 ^3/uL (0.4-5.4); Lymphocytes % (auto) 30.7 % (10.0-50.0); Mean Corpuscular Hemoglobin 30.5 pg (28.0-32.0); Mean Corpuscular Hgb Conc. 34.4 g/dL (32.0-36.0); Mean Corpuscular Volume 88.8 fL (80.0-100.0); Monocytes # (auto) 0.9 10 ^3/uL (0-1.3); Monocytes % (auto) 7.9 % (0.0-12.0); Neutrophils # (auto) 6.8 10 ^3/uL (1.6-8.6); Neutrophils % (auto) 58.4 % (37.0-80.0); Nucleated Red Blood Cells % 0.8 %; Red Blood Cells 4.61 10^6/uL (4.0-5.20); Red Cell Distribution Width 13.8 % (11.8-14.3); White Blood Cell 11.7 10^3/uL (4.4-10.8)
[2021-02-12 23:13] LABS: INR 0.97 (0.9-1.15); Partial Thromboplastin Time 23.9 sec (23.0-31.2)
[2021-02-12 23:16] LABS: Alkaline Phosphatase 139 U/L (45-117); Aspartate Aminotransferase 14 U/L (15-37); Bilirubin, Total 0.2 mg/dL (0.2-1.0); Total Protein 7.8 g/dL (6.4-8.2)
[2021-02-12 23:20] LABS: Alanine Aminotransferase 36 U/L (13-56); Anion Gap 6 (5-15); BUN/Creatinine Ratio 31.9; Blood Urea Nitrogen 15 mg/dL (7-18); Carbon Dioxide 25 mmol/L (21-32); Chloride 101 mmol/L (98-107); GFR African American 192 mL/min; GFR Non-African American 158 mL/min; Glucose 328 mg/dL (74-106); Potassium 4.2 mmol/L (3.5-5.1); Sodium 132 mmol/L (136-145)
[2021-02-12 23:21] LABS: Albumin 3.6 g/dL (3.4-5.0); Calcium 9.2 mg/dL (8.5-10.1)
[2021-02-12] MEDS ORDERED: InsuLIN REG 1unit/0.01ml Soln (100units/ml) SC ONE (23:30)
[2021-02-12] MEDS ORDERED: CEFEPIME 2 GM in SODIUM CHL 0.9% 50 ML IV ONE (23:30)
[2021-02-13] MEDS ORDERED: SODIUM CHLORIDE 0.9% 1,000 ML IV ONE
[2021-02-13] MEDS ORDERED: KETOROLAC TROMETH 30 MG/ML 1ML VIAL IV ONE
[2021-02-13 00:49] LABS: Urine Bacteria NONE SEEN /hpf (None Seen); Urine Blood Negative /uL (Negative); Urine Specific Gravity 1.032 (1.001-1.035); Urine WBC 1 /hpf (0 - 5)
[2021-02-13] MEDS ORDERED: DEXTROSE (50%) 50ML SYRG IV PRN (01:00)
[2021-02-13] MEDS ORDERED: ONDANSETRON HCL 4 MG/2 ML VIAL IV PRN (01:00)
[2021-02-13] MEDS: SODIUM CHLORIDE 0.9% 1,000 ML IV SCH ×2 (02:00→14:50)
[2021-02-13] MEDS ORDERED: cefTRIAXone 1GM/50ML D5W 50 ML IV ONE ×3 (02:28→03:00)
[2021-02-13] MEDS ORDERED: VANCOMYCIN 1GM/250ML 250 ML IV ONE (03:30)
[2021-02-13] MEDS: MORPHINE SULFATE 4 MG/ML SYR/VIAL IV PRN ×2 (03:37→18:13)
[2021-02-13 03:52] VITALS: BP 110/74
[2021-02-13] MEDS: ACCU-CHEK COMFORT CURVE STRIP VI SCH ×5 (05:41→23:41)
[2021-02-13] MEDS: InsuLIN REG 1unit/0.01ml Soln (100units/ml) SC SCH ×5 (05:44→23:44)
[2021-02-13] MEDS: CEFEPIME 2 GM in SODIUM CHL 0.9% 50 ML IV SCH ×3 (06:56→21:53)
[2021-02-13 09:00] VITALS: BP 122/79
[2021-02-13] MEDS ORDERED: PANTOPRAZOLE 40 MG/10 ML VIAL INJ IV SCH (10:00)
[2021-02-13] MEDS ORDERED: ceFAZolin 1GM/50ML 100 ML IV ONE (10:15)
[2021-02-13] MEDS ORDERED: fentaNYL CITRATE 100 MCG/2 ML VL ONE (11:46)
[2021-02-13] MEDS ORDERED: SODIUM CHLORIDE LOCK 10 ML ONE (11:47)
[2021-02-13] MEDS ORDERED: MIDAZOLAM HCL 2MG/2ML 2ml VIAL (1mg/ml) ONE (11:47)
[2021-02-13] MEDS ORDERED: ONDANSETRON HCL 4 MG/2 ML VIAL ONE (11:47)
[2021-02-13] MEDS ORDERED: ceFAZolin 1GM VL ONE (13:12)
[2021-02-13 16:33] VITALS: BP 108/70
[2021-02-13] MEDS: metFORMIN HYDROCHLORIDE 500 MG TAB PO SCH (18:13)
[2021-02-13] MEDS: GABAPENTIN 300 MG CAP PO SCH (21:53)
[2021-02-13] MEDS ORDERED: ATORVASTATIN 20 MG TAB PO SCH (22:00)
[2021-02-14] MEDS: MORPHINE SULFATE 4 MG/ML SYR/VIAL IV PRN ×2 (02:11→08:19)
[2021-02-14 05:00] VITALS: BP 120/75
[2021-02-14] MEDS: GABAPENTIN 300 MG CAP PO SCH ×2 (05:50→14:05)
[2021-02-14] MEDS: CEFEPIME 2 GM in SODIUM CHL 0.9% 50 ML IV SCH ×2 (05:50→13:46)
[2021-02-14] MEDS: ACCU-CHEK COMFORT CURVE STRIP VI SCH ×2 (05:51→12:28)
[2021-02-14] MEDS: InsuLIN REG 1unit/0.01ml Soln (100units/ml) SC SCH ×2 (06:17→12:29)
[2021-02-14 06:26] LABS: Basophils # (auto) 0 10 ^3/uL (0-0.2); Basophils % (auto) 0.5 % (0.0-2.0); Eosinophils # (auto) 0.3 10 ^3/uL (0-0.8); Eosinophils % (auto) 3.8 % (0.0-7.0); Hematocrit 37.3 % (36.0-46.0); Hemoglobin 13.1 g/dL (12.2-16.2); Lymphocytes # (auto) 2.2 10 ^3/uL (0.4-5.4); Mean Corpuscular Hgb Conc. 35.1 g/dL (32.0-36.0); Mean Corpuscular Volume 88.4 fL (80.0-100.0); Monocytes # (auto) 0.7 10 ^3/uL (0-1.3); Neutrophils # (auto) 5.6 10 ^3/uL (1.6-8.6); Neutrophils % (auto) 62.7 % (37.0-80.0); Nucleated Red Blood Cells % 0.1 %; Red Blood Cells 4.22 10^6/uL (4.0-5.20); Red Cell Distribution Width 13.8 % (11.8-14.3); White Blood Cell 8.9 10^3/uL (4.4-10.8)
[2021-02-14 06:46] LABS: Calcium 8.1 mg/dL (8.5-10.1); Potassium 3.8 mmol/L (3.5-5.1)
[2021-02-14 06:49] LABS: BUN/Creatinine Ratio 28.6
[2021-02-14] MEDS: metFORMIN HYDROCHLORIDE 500 MG TAB PO SCH (08:20)
[2021-02-14 09:00] VITALS: BP 127/68
[2021-02-14] MEDS ORDERED: LISINOPRIL 5 MG TAB PO SCH (10:00)
[2021-02-14 12:30] VITALS: BP 103/67
[2021-02-14 12:40] VITALS: BP 103/67
== END 2021-02-14 14:45 | disposition home health service (06) | DRG 361 ==
LOC: ER 20:37 → OVERFLOW 02-13 00:55 → WEST WING 02-13 03:05
PROVIDERS: ADMIT Nurse Practitioner; ATTEND Internal Medicine
PROC: 0HRNXK3 Replacement of Left Foot Skin with Nonautologous Tissue Substitute, Full Thickness, External Approach (ICD-10-PCS; 2021-02-13)
PROC: 0JBR0ZZ Excision of Left Foot Subcutaneous Tissue and Fascia, Open Approach (ICD-10-PCS; principal; 2021-02-13 13:29)
DX: E11.621 Type 2 diabetes mellitus with foot ulcer (principal); L97.429 Non-pressure chronic ulcer of left heel and midfoot with unspecified severity; E66.01 Morbid (severe) obesity due to excess calories; I10 Essential (primary) hypertension; F31.9 Bipolar disorder, unspecified; E78.5 Hyperlipidemia, unspecified; Z20.822 Contact with and (suspected) exposure to COVID-19; Z80.3 Family history of malignant neoplasm of breast; Z82.49 Family history of ischemic heart disease and other diseases of the circulatory system; Z83.3 Family history of diabetes mellitus; Z91.013 Allergy to seafood; Z91.018 Allergy to other foods; Z68.41 Body mass index [BMI] 40.0-44.9, adult
CPT/HCPCS: 36415; 71045; 73630; 80048; 80053; 81001; 82962; 84702; 85025; 85610; 85730; 87040; 87070; 87075; 87077; 87186; 87205; 87426; 93005; 96361; 96365; 96372; 96375; C9113; G0378; J0690; J0696; J1815; J1885; J2250; J2405

== ENCOUNTER 2023-06-02 22:31 | Emergency (ER) | payer SELFPAY ==
[~2023-06-02] VITALS: Ht 165.1 cm; Wt 120.2 kg
[~2023-06-02 22:31] MED LIST changes: +GABA-1250 PO; -GABA300C10 PO; -GLIP10TA16 PO; +GLIP10TA21 PO
[2023-06-02 23:18] LABS: Basophils # (auto) 0.1 10 ^3/uL (0-0.2); Basophils % (auto) 0.6 % (0.0-2.0); Eosinophils # (auto) 0.2 10 ^3/uL (0-0.8); Hematocrit 40.9 % (36.0-46.0); Hemoglobin 13.8 g/dL (12.2-16.2); Lymphocytes # (auto) 3.8 10 ^3/uL (0.4-5.4); Lymphocytes % (auto) 37.4 % (10.0-50.0); Mean Corpuscular Hemoglobin 29.7 pg (28.0-32.0); Mean Corpuscular Hgb Conc. 33.7 g/dL (32.0-36.0); Mean Corpuscular Volume 87.9 fL (80.0-100.0); Monocytes # (auto) 0.8 10 ^3/uL (0-1.3); Monocytes % (auto) 8.2 % (0.0-12.0); Neutrophils # (auto) 5.3 10 ^3/uL (1.6-8.6); Neutrophils % (auto) 51.8 % (37.0-80.0); Nucleated Red Blood Cells % 0.2 %; Red Blood Cells 4.65 10^6/uL (4.0-5.20); Red Cell Distribution Width 14.8 % (11.8-14.3); White Blood Cell 10.1 10^3/uL (4.4-10.8)
[2023-06-03 00:24] LABS: Alanine Aminotransferase 30 U/L (7-40); Albumin 4.1 g/dL (3.2-4.8); Alkaline Phosphatase 179 U/L (46-116); Anion Gap 10 (5-15); Aspartate Aminotransferase 25 U/L (13-40); BUN/Creatinine Ratio 16.3 (10.0-20.0); Bilirubin, Total 0.2 mg/dL (0.2-1.0); Blood Urea Nitrogen 13 mg/dL (9-23); Calcium 8.7 mg/dL (8.7-10.4); Carbon Dioxide 21 mmol/L (20-30); Chloride 99 mmol/L (98-107); Potassium 4.1 mmol/L (3.5-5.1); Sodium 130 mmol/L (136-145); Total Protein 6.7 g/dL (5.7-8.2)
[2023-06-03 00:34] LABS: Glucose 462 mg/dL (74-106)
[2023-06-03] MEDS ORDERED: InsuLIN REG 1unit/0.01ml Soln (100units/ml) SC ONE ×2 (01:00→02:45)
[2023-06-03] MEDS ORDERED: SODIUM CHLORIDE 0.9% 1,000 ML IV ONE (01:45)
[2023-06-03 02:45] VITALS: BP 127/77; PULSE 102; RESP 18; TEMP 98.5; O2SAT 93
[2023-06-03] MEDS ORDERED: DULA0.5I SC (03:05)
[2023-06-03] MEDS ORDERED: INSU100I49 SC (03:05)
[2023-06-03 03:43] LABS: Urine Bacteria FEW /hpf (None Seen); Urine Blood Negative /uL (Negative); Urine Clarity Clear (Clear); Urine Color Colorless (Yellow); Urine Protein, UAD Negative (Negative); Urine Specific Gravity 1.038 (1.001-1.035); Urine Urobilinogen Normal (Negative); Urine WBC 2 /hpf (0 - 5)
== END 2023-06-03 05:00 | disposition home or self-care (01) ==
LOC: ER 22:31
DX: E11.65 Type 2 diabetes mellitus with hyperglycemia (principal); I10 Essential (primary) hypertension; E78.5 Hyperlipidemia, unspecified; Z91.013 Allergy to seafood
CPT/HCPCS: 36415; 70450; 80053; 81001; 82962; 84484; 85025; 93005; 96360; 96372; 99285; J1815; J7030

== ENCOUNTER 2024-08-07 10:29 | Emergency (ER) | payer MEDICAID ==
[~2024-08-07] VITALS: Ht 167.6 cm; Wt 275.0 kg
[~2024-08-07 10:29] MED LIST changes: +DULA0.5I SC; +INSU100I49 SC
[2024-08-07 10:35] VITALS: TEMP 98.2
--- NOTE | 2024-08-07 10:48 | ED.PDOC ---
History of Present Illness HPI Comments 39 y.o female with PMHx of DM, HTN and hyperlipidemia presents to the ED for a medication refill. Patient reports accidently dropping her insulin causing it to break and is need of a refill. Patient is asymptomatic and denies any recent illness. Time Seen by MD: 10:44 Primary Care Provider: ADAM Reviewed Notes: Nurses Notes, Medications, Allergies Allergies: Coded Allergies: Pork Allergy (Verified Allergy, Severe, 12/31/20) Fish Allergy (Verified Allergy, Intermediate, 12/31/20) Home Meds Active Scripts Insulin Glargine-Yfgn (Insulin Glargine) 100 Unit/Ml Inj, 27 UNIT SC QHSP PRN for 10 Days, INJ Prov:NEPTALI RED MD 08/07/24 Insulin Aspart (Insulin Aspart) 100 Unit/Ml Inj, 100 UNIT SC AC PRN, #10 ML per sliding scale Prov:NANDO GIVENS SYRUP MAKER COOK 06/03/23 Dulaglutide (Trulicity) 1.5 Mg/0.5 Ml Inj, 1.5 MG SC QWEEKLY, #1 INJ Prov:NANDO GIVENS SYRUP MAKER COOK 06/03/23 Glipizide (Glipizide Er) 10 Mg Tab, 1 TAB PO DAILY for 30 Days, #30 TAB 1 Refill Prov:KATE PINK MD 01/31/21 Metformin Hydrochloride (Metformin Hcl) 500 Mg Tab, 1000 MG PO BIDWM for 30 Days, #120 TAB Prov:GAVI ORO MD 01/17/21 Lisinopril (Lisinopril) 5 Mg Tab, 5 MG PO DAILY for 30 Days, #30 TAB Prov:GAVI ORO MD 01/17/21 Gabapentin (Gabapentin) 300 Mg Cap, 300 MG PO TID for 30 Days, #90 CAP Prov:GAVI ORO MD 01/17/21 Atorvastatin Calcium (ATORVASTATIN CALCIUM) 10 Mg Tab, 1 TAB PO DAILY, #30 TAB 0 Refills Prov:GAVI ORO MD 01/17/21 Aspirin (Aspir-Low) 81 Mg Tab, 81 MG PO DAILY for 30 Days, #30 TAB Prov:GAVI ORO MD 01/17/21 Reported Medications Aripiprazole (Abilify) 2 Mg Tab, 5 MG PO DAILY, TAB 01/30/21 Paroxetine (PAXIL TABLET) 20 Mg Tb, 1 TAB PO DAILY, #30 TAB 5 Refills 01/30/21 Information Source: Patient Mode of Arrival: Ambulatory Severity: None Timing: Hours Duration: Since onset Medication Refill: For: Diabetes Past Medical History PAST MEDICAL HISTORY: DM, High Lipids, HTN FERTILIZER APPLICATOR History: No Pertinent FERTILIZER APPLICATOR History Family History Family History: Family hx of DM, Family hx of heart kody Social History Smoker: Non-Smoker Alcohol: Denies ETOH Use Drugs: Denies Drug Use Lives In: Home Constitutional: denies: chills, diaphoresis, fatigue, fever, malaise, sweats, weakness, others EENTM: denies: blurred vision, double vision, ear bleeding, ear discharge, ear drainage, ear pain, ear ringing, eye pain, eye redness, hearing loss, mouth pain, mouth swelling, nasal discharge, nose bleeding, nose congestion, nose pain, photophobia, tearing, throat pain, throat swelling, voice changes, others Respiratory: denies: cough, hemoptysis, orthopnea, SOB at rest, shortness of breath, SOB with excertion, stridor, wheezing, others Cardiovascular: denies: chest pain, dizzy spells, diaphoresis, Dyspnea on exertion, edema, irregular heart beat, left arm pain, lightheadedness, palpitations, PND, syncope, others Gastrointestinal: denies: abdomen distended, abdominal pain, blood streaked bowels, constipated, diarrhea, dysphagia, difficulty swallowing, hematemesis, melena, nausea, poor appetite, poor fluid intake, rectal bleeding, rectal pain, vomiting, others Genitourinary: denies: abnormal vagina bleeding, burning, dyspareunia, dysuria, flank pain, frequency, hematuria, incontinence, pain, , vagina discharge, urgency, others Neurological: denies: dizziness, fainting, headache, left sided numbness, left sided weakness, numbness, paresthesia, pre-existing deficit, right sided numbness, right sided weakness, seizure, speech problems, tingling, tremors, weakness, others Musculoskeletal: denies: back pain, gout, joint pain, joint swelling, muscle pa in, muscle stiffness, neck pain, others Integumetry: denies: bruises, change in color, change in hair/nails, dryness, laceration, lesions, lumps, rash, wounds, others Allergic/Immunocompromised: denies: Difficulty Healing, Frequent Infections, Hives, Itching, others Hematologic/Lymphatic: denies: anemia, blood clots, easy bleeding, easy bruising, swollen glands, others Endocrine: denies: excessive hunger, excessive sweating, excessive thirst, excessive urination, flushing, intolerance to cold, intolerance to heat, unexplained weight gain, unexplained weight loss, others Psychiatric: denies: anxiety, bipolar disorder, depression, hopeless, panic disorder, schizophrenia, sleepless, suicidal, others All Other Systems: Reviewed and Negative Physical Exam General Appearance: No Apparent Distress, Normal HEENT: Normal ENT Inspection, Pharynx Normal, TMs Normal Neck: Full Range of Motion, Non-Tender, Normal, Normal Inspection Respiratory: Chest Non-Tender, Lungs Clear, No Accessory Muscle Use, No Respiratory Distress, Normal Breath Sounds Cardiovascular: No Edema, No JVD, No Murmur, No Gallop, Normal Peripheral Pulses, Regular Rate/Rhythm Breast Exam: Deferred Gastrointestinal: No Organomegaly, Non Tender, No Pulsatile Mass, Normal Bowel Sounds, Soft Genitalia: Deferred Pelvic: Deferred Rectal: Deferred Extremities: No calf tenderness, Normal capillary refill, Normal inspection, Normal range of motion, Non-tender, No pedal edema Musculoskeletal : Apperance: Normal Neurologic: Alert, family support worker II-XII nml as Tested, No Motor Deficits, Normal Affect, Normal Mood, No Sensory Deficits Cerebellar Function: Normal Reflexes: Normal Skin: Dry, Normal Color, Warm Lymphatic: No Adenopathy Was a procedure done? Was a procedure done?: No Differential Dx Considerations may include: Medication refill X-Ray, Labs, Meds, VS Comment 39-year-old female presents requesting refill of her insulin glargine. Patient dropped the bottle. She was no other complaints. Denies any other signs or symptoms. Denies any other palliative provocative factors. As modifying factors. The patient typically [facility] her [facility]ills [facility]. However, [facility]. As such, we have changed her preferred pharmacy to [facility]. Time of 1ST Reevaluation: 10:47 Reevaluation 1ST: N/A Patient Education/Counseling: Diagnosis, Treatment, Prognosis Family Education/Counseling: No Family Present Departure 1 Departure Time of Disposition: 10:49 Impression: Primary Impression: Diabetes Disposition: 01 HOME / SELF CARE / HOMELESS Condition: Good e-Prescriptions Insulin Glargine-Yfgn (Insulin Glargine) 100 Unit/Ml Inj 27 UNIT SC QHSP PRN for 10 Days, INJ Prov: NEPTALI RED MD 08/07/24 Discharged With: Self Critical Care Note Critical Care Time?: No Stability Stability form required: No I personally scribed for NEPTALI RED MD ([email or web address]) on 08/07/24 at 10:48. Electronically submitted by Dariela Devries ([email or web address]). NEPTALI RED MD Aug 07, 2024 10:48
[2024-08-07] MEDS ORDERED: INSU100I70 SC (10:49)
[2024-08-07 10:51] VITALS: BP 134/83; PULSE 109; RESP 18; O2SAT 95
== END 2024-08-07 11:16 | disposition home or self-care (01) ==
LOC: ER 10:29
DX: E11.9 Type 2 diabetes mellitus without complications (principal); E78.5 Hyperlipidemia, unspecified; I10 Essential (primary) hypertension

== ENCOUNTER 2025-06-05 16:54 | Inpatient (IN) | payer MEDICAID ==
[~2025-06-05] VITALS: Ht 167.6 cm; Wt 149.8 kg
[~2025-06-05 16:54] MED LIST changes: +INSU100I70 SC
--- NOTE | 2025-06-05 17:20 | ECG ---
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
--- NOTE | 2025-06-05 17:42 | ED.PDOC ---
History of Present Illness HPI Comments This is a 39 year old female JUMA presenting to the ED with chief complaint of hyperglycemia and hypertension. Patient reports that she had recent left foot wound debridement today performed at OSH by Dr. Tello, but was later called by her PCP regarding wound culture results from 2 weeks ago. Patient relays that she was told she had Pseudomonas Aeruginosa in her wound along with an ESR of 85, advising her to come to the ED for treatment. Patient states that she is unsure if her surgeon today did their own wound culture or treated her osteomyelitis. She was sent home with a wound VAC, does not believe that she was sent home with antibiotics. Blood pressure and glucose noted to be elevated, states that she has been NPO all day and not taking her medications because she was at her surgery. Patient denies any numbness, erythema, fever, chills, chest pain, SOB, or foot pain. Chief Complaint: High Blood Pressure Time Seen by MD: 17:36 Primary Care Provider: ADAM Presley Notes: Nurses Notes, Medications, Allergies Allergies: Coded Allergies: Mushroom (Verified Allergy, Severe, 06/05/25) Onion (Verified Allergy, Severe, 06/05/25) Pork Allergy (Obsolete) (Verified Allergy, Severe, 12/31/20) Fish Allergy (Verified Allergy, Intermediate, 12/31/20) Acetaminophen (Verified Allergy, Unknown, 08/07/24) Sulfamethoxazole w/Trimethoprim (Verified Allergy, Unknown, 08/07/24) Home Meds Active Scripts Insulin Glargine-Yfgn (Insulin Glargine) 100 Unit/Ml Inj, 27 UNIT SC QHSP PRN for 10 Days, INJ Prov:NEPTALI RED MD 08/07/24 Insulin Aspart (Insulin Aspart) 100 Unit/Ml Inj, 100 UNIT SC AC PRN, #10 ML per sliding scale Prov:NANDO SMARTP 06/03/23 Dulaglutide (Trulicity) 1.5 Mg/0.5 Ml Inj, 1.5 MG SC QWEEKLY, #1 INJ Prov:NANDO SMART MILL TURNER 06/03/23 Glipizide (Glipizide Er) 10 Mg Tab, 1 TAB PO DAILY for 30 Days, #30 TAB 1 Refill Prov:KATE PINK MD 01/31/21 Metformin Hydrochloride (Metformin Hcl) 500 Mg Tab, 1000 MG PO BIDWM for 30 Day s, #120 TAB Prov:GAVI ORO MD 01/17/21 Lisinopril (Lisinopril) 5 Mg Tab, 5 MG PO DAILY for 30 Days, #30 TAB Prov:GAVI ORO MD 01/17/21 Gabapentin (Gabapentin) 300 Mg Cap, 300 MG PO TID for 30 Days, #90 CAP Prov:GAVI ORO MD 01/17/21 Atorvastatin Calcium (ATORVASTATIN CALCIUM) 10 Mg Tab, 1 TAB PO DAILY, #30 TAB 0 Refills Prov:GAVI ORO MD 01/17/21 Aspirin (Aspir-Low) 81 Mg Tab, 81 MG PO DAILY for 30 Days, #30 TAB Prov:GAVI ORO MD 01/17/21 Reported Medications Aripiprazole (Abilify) 2 Mg Tab, 5 MG PO DAILY, TAB 01/30/21 Paroxetine (PAXIL TABLET) 20 Mg Tb, 1 TAB PO DAILY, #30 TAB 5 Refills 01/30/21 Information Source: Patient Mode of Arrival: EMS Severity: Moderate Timing: Hours Duration: Since onset Prehospital treatment: None Past Medical History PAST MEDICAL HISTORY: DM, High Lipids, HTN Surgical History (Other): Lt foot partial amputation, left foot wound debridement PARK RECREATION MANAGER History: No Pertinent PARK RECREATION MANAGER History Family History Family History: Reviewed,noncontributory to illness, Family hx of DM, Family hx of heart kody Social History Smoker: Non-Smoker Alcohol: Denies ETOH Use Drugs: Denies Drug Use Lives In: Home Constitutional: denies: chills, diaphoresis, fatigue, fever, malaise, sweats, weakness, others EENTM: denies: blurred vision, double vision, ear bleeding, ear discharge, ear drainage, ear pain, ear ringing, eye pain, eye redness, hearing loss, mouth pain, mouth swelling, nasal discharge, nose bleeding, nose congestion, nose pain, photophobia, tearing, throat pain, throat swelling, voice changes, others Respiratory: denies: cough, hemoptysis, orthopnea, SOB at rest, shortness of breath, SOB with excertion, stridor, wheezing, others Cardiovascular: denies: chest pain, dizzy spells, diaphoresis, Dyspnea on exertion, edema, irregular heart beat, left arm pain, lightheadedness, palpitations, PND, syncope, others Gastrointestinal: denies: abdomen distended, abdominal pain, blood streaked bowels, constipated, diarrhea, dysphagia, difficulty swallowing, hematemesis, melena, nausea, poor appetite, poor fluid intake, rectal bleeding, rectal pain, vomiting, others Genitourinary: denies: abnormal vagina bleeding, burning, dyspareunia, dysuria, flank pain, frequency, hematuria, incontinence, pain, , vagina discharge, urgency, others Neurological: denies: dizziness, fainting, headache, left sided numbness, left sided weakness, numbness, paresthesia, pre-existing deficit, right sided numbness, right sided weakness, seizure, speech problems, tingling, tremors, weakness, others Musculoskeletal: denies: back pain, gout, joint pain, joint swelling, muscle pain, muscle stiffness, neck pain, others Integumetry: reports: wounds (to left foot with wound vac in place); denies: bruises, change in color, change in hair/nails, dryness, laceration, lesions, lumps, rash, others Allergic/Immunocompromised: denies: Difficulty Healing, Frequent Infections, Hives, Itching, others Hematologic/Lymphatic: denies: anemia, blood clots, easy bleeding, easy bruising, swollen glands, others Endocrine: denies: excessive hunger, excessive sweating, excessive thirst, excessive urination, flushing, intolerance to cold, intolerance to heat, unexplained weight gain, unexplained weight loss, others Psychiatric: denies: anxiety, bipolar disorder, depression, hopeless, panic disorder, schizophrenia, sleepless, suicidal, others All Other Systems: Reviewed and Negative Physical Exam General Appearance: No Apparent Distress, Normal HEENT: Normal ENT Inspection, Pharynx Normal, TMs Normal Neck: Full Range of Motion, Non-Tender, Normal, Normal Inspection Respiratory: Chest Non-Tender, Lungs Clear, No Accessory Muscle Use, No Respiratory Distress, Normal Breath Sounds Cardiovascular: No Edema, No JVD, No Murmur, No Gallop, Normal Peripheral Pulses, Regular Rate/Rhythm Breast Exam: Deferred Gastrointestinal: No Organomegaly, Non Tender, No Pulsatile Mass, Normal Bowel Sounds, Soft Genitalia: Deferred Pelvic: Deferred Rectal: Deferred Extremities: No calf tenderness, Normal capillary refill, Normal inspection, Normal range of motion, Non-tender, No pedal edema Musculoskeletal : Apperance: Normal Neurologic: Alert, medical library assistant II-XII nml as Tested, No Motor Deficits, Normal Affect, Normal Mood, No Sensory Deficits Cerebellar Function: Normal Reflexes: Normal Skin: Dry, Normal Color, Warm, Other (Wound vac noted along dorsal part of left foot TMA. Surrounding tissue without erythema or discoloration or drainage.) Lymphatic: No Adenopathy Was a procedure done? Was a procedure done?: No Differential Dx Considerations may include: Cellulitis versus osteomyelitis versus DKA X-Ray, Labs, Meds, VS Vital Signs Date Time Temp Pulse Resp B/P (MAP) Pulse Ox O2 Delivery O2 Flow Rate FiO2 06/05/25 20:26 Room Air* 0 21 06/05/25 17:22 98.0 101 15 162/82 (108) 99 98.0 06/05/25 17:19 105 06/05/25 17:03 98.3 105 18 172/118 99 98.3 Lab Test 06/05/25 19:03 06/05/25 17:54 06/05/25 17:17 Range/Units Lactic Acid Level 3.0 *H 3.4 *H 0.4-2.0 mmol/L White Blood Count 10.5 4.4-10.8 10^3/uL Red Blood Count 5.10 4.0-5.20 10^6/uL Hemoglobin 14.4 12.2-16.2 g/dL Hematocrit 43.4 36.0-46.0 % Mean Corpuscular Volume 85.1 80.0-100.0 fL Mean Corpuscular Hemoglobin 28.3 28.0-32.0 pg Mean Corpuscular Hemoglobin Concent 33.2 32.0-36.0 g/dL Red Cell Distribution Width 16.8 H 11.8-14.3 % Platelet Count 211 140-450 10^3/uL Mean Platelet Volume 9.2 6.9-10.8 fL Neutrophils (%) (Auto) 87.1 H 37.0-80.0 % Lymphocytes (%) (Auto) 10.7 10.0-50.0 % Monocytes (%) (Auto) 2.0 0.0-12.0 % Eosinophils (%) (Auto) 0.0 0.0-7.0 % Basophils (%) (Auto) 0.2 0.0-2.0 % Neutrophils # (Auto) 9.1 H 1.6-8.6 10 ^3/uL Lymphocytes # (Auto) 1.1 0.4-5.4 10 ^3/uL Monocytes # (Auto) 0.2 0-1.3 10 ^3/uL Eosinophils # (Auto) 0 0-0.8 10 ^3/uL Basophils # (Auto) 0 0-0.2 10 ^3/uL Nucleated Red Blood Cells 0.1 % Erythrocyte Sedimentation Rate 32 H 0-20 mm/hr Sodium Level 134 L 136-145 mmol/L Potassium Level 4.9 3.5-5.1 mmol/L Chloride Level 98 98-107 mmol/L Carbon Dioxide Level 22 20-31 mmol/L Anion Gap 14 5-15 Blood Urea Nitrogen 15 9-23 mg/dL Creatinine 0.82 0.550-1.02 mg/dL Glomerular Filtration Rate Calc 92 >90 mL/min BUN/Creatinine Ratio 18.3 10.0-20.0 Serum Glucose 530 *H 74-106 mg/dL Calcium Level 9.2 8.7-10.4 mg/dL C-Reactive Protein High Sensitivity 1.17 H <1.0 mg/dL Beta-Hydroxybutyric Acid 0.748 H < 0.4 mmol/L POC Glucose 541 *H 70-106 mg/dl Current Medications Medications (Trade) Dose Ordered Sig/Tj Route Start Time Stop Time Status Last Admin Sodium Chloride 1,000 ml @ 1,000 mls/hr Q1H ONCE IV 06/05/25 17:45 06/05/25 18:44 DC 06/05/25 20:14 Insulin Human Regular (InsuLIN R) 10 units ONCE ONCE IV 06/05/25 17:45 06/05/25 17:46 DC 06/05/25 20:14 Levofloxacin/ Dextrose 100 ml @ 100 mls/hr ONCE ONCE IV 06/05/25 17:45 06/05/25 18:44 DC 06/05/25 20:15 Time of 1ST Reevaluation: 18:36 Reevaluation 1ST: Unchanged Patient Education/Counseling: Diagnosis, Treatment Family Education/Counseling: No Family Present SEPSIS Sepsis Screen Date sepsis recognized/suspect: Jun 05, 2025 Time Sepsis recognized/suspect: 1705 Recent Procedure: No On Antibiotic Therapy: No Respiratory Rate >20: No Heart Rate >90: No Temp<36 C (96.8 F) or >38.3 C: No SBP <90 or MAP <65 mmHG: No New Acute Mental Status Change: No Is the patient on CPAP, BIPAP,: No Physician Orders Blood Culture (06/05/25 17:34) Vital Signs Date Time Temp Pulse Resp B/P (MAP) Pulse Ox O2 Delivery O2 Flow Rate FiO2 06/05/25 20:26 Room Air* 0 21 06/05/25 17:22 98.0 101 15 162/82 (108) 99 98.0 06/05/25 17:19 105 06/05/25 17:03 98.3 105 18 172/118 99 98.3 Laboratory Tests Test 06/05/25 17:54 06/05/25 19:03 Lactic Acid Level 3.4 mmol/L (0.4-2.0) *H 3.0 mmol/L (0.4-2.0) *H White Blood Count 10.5 10^3/uL (4.4-10.8) Medications Medications Dose Ordered Sig/Tj Route Start Time Stop Time Status Last Admin Dose Admin Insulin Human Regular 10 units ONCE ONCE IV 06/05/25 17:45 06/05/25 17:46 DC 06/05/25 20:14 Levofloxacin/ Dextrose 100 ml @ 100 mls/hr ONCE ONCE IV 06/05/25 17:45 06/05/25 18:44 DC 06/05/25 20:15 Sodium Chloride 1,000 ml @ 1,000 mls/hr Q1H ONCE IV 06/05/25 17:45 06/05/25 18:44 DC 06/05/25 20:14 Departure 1 Departure Time of Disposition: 21:01 (39-year-old female with past medical history of diabetes, left foot osteomyelitis (s/p TMA months ago, wound debridement, wound VAC placement earlier today) presenting for evaluation of elevated blood sugar and concerns of pseudomonal foot infection. Patient arrives with critically high glucose in the setting of not taking her medications all day because she had surgery earlier today. Given the hyperglycemia could be concerning for DKA. However bicarb is within normal limits, does not seem consistent with true DKA. Patient had a wound culture performed of her left foot by her primary care doctor within the past couple of weeks that group back Pseudomonas. Currently has a wound VAC in place and the foot appears clean, dry, intact, however, given positive cultures she will be started on IV levaquin which should cover Pseudomonas foot infection. Patient was given 2 L normal saline IV fluid bolus which is greater than 30 cc/kilogram based off of ideal body weight. Was also given IV insulin for her hyperglycemia. Patient will be admitted for further management given uncontrolled diabetes and current pseudomonal diabetic foot infection.) Impression: Primary Impression: Foot osteomyelitis, left Additional Impressions: Diabetic infection of left foot Bacterial infection due to Pseudomonas Diabetes mellitus with hyperglycemia Disposition: ADMITTED INPATIENT Admit to: Tele Condition: Stable Critical Care Note Critical Care Time?: Yes (35 min-critical care time only) Critical care comment: With critical hyperglycemia, signs concerning for possible DKA. Requiring IV fluid hydration and IV insulin to ensure that the patient does not have worsening electrolyte abnormalities, go into DKA. Stability Stability form required: No Heart Score Heart Score: Heart Score Response (Comments) Value History N/A 0 EKG N/A 0 Age N/A 0 Risk Factors N/A 0 Troponin N/A 0 Total 0 I personally scribed for ALBAN GIVENS MD ([email or web address]) on 06/05/25 at 17:42. Electronically submitted by Oli Guerra ([email or web address]). ALBAN GIVENS MD Jun 05, 2025 17:42
[2025-06-05 18:22] LABS: Hematocrit 43.4 % (36.0-46.0); Hemoglobin 14.4 g/dL (12.2-16.2); Mean Corpuscular Hemoglobin 28.3 pg (28.0-32.0); Mean Corpuscular Volume 85.1 fL (80.0-100.0); Nucleated Red Blood Cells % 0.1 %
[2025-06-05 18:28] LABS: Chloride 98 mmol/L (98-107); Potassium 4.9 mmol/L (3.5-5.1)
[2025-06-05 18:29] LABS: Anion Gap 14 (5-15); Calcium 9.2 mg/dL (8.7-10.4); Carbon Dioxide 22 mmol/L (20-31)
[2025-06-05 18:34] LABS: BUN/Creatinine Ratio 18.3 (10.0-20.0); Blood Urea Nitrogen 15 mg/dL (9-23)
[2025-06-05 19:13] LABS: Sodium 134 mmol/L (136-145)
[2025-06-05 19:15] LABS: Glucose 530 mg/dL (74-106); Lactic Acid w/Reflex 3.4 mmol/L (0.4-2.0)
[2025-06-05] MEDS: InsuLIN REG 1unit/0.01ml Soln (100units/ml) IV ONE (20:14)
[2025-06-05] MEDS: SODIUM CHLORIDE 0.9% 1,000 ML IV ONE ×2 (20:14→22:26)
[2025-06-05] MEDS: LISINOPRIL 5 MG TAB PO ONE (21:15)
[2025-06-05] MEDS ORDERED: DEXTROSE (50%) 50ML SYRG IV PRN (21:15)
--- NOTE | 2025-06-05 21:40 | DVHHPRES ---
History of Present Illness Resident Creating Document: TERESA GEORGE RESIDENT History of Present Illness This is a 39 year old female with past medical history of HTN, HLD, dm 2 on insulin, osteomyelitis, bipolar disorder, peripheral neuropathy, depression came to ER due to called from PCP office due to wound culture/blood showed growth of Pseudomonas aeruginosa and high blood glucose level. She hold her anti-diabetic meds today for her surgery. Patient went to [facility] today morning due to skin graft left foot and wound VAC placed and no collection. Associated symptoms headache, malaise, feeling thirsty and blurry vision. As per patient, blood draw and wound culture sent weeks earlier in [facility]([phone]). History of left foot culture on 02/13/[address] left foot on 12/30/2020 showed osteomyelitis of posterior medial calcaneus. Patient had left foot surgery more than 5 times and amputated all left toes. Patient currently denies any nausea, vomiting, chest pain, SOB or any other acute distress. Patient seen by Cardiology earlier this year, stress test and angiogram done which came back negative. Follow-up with endocrinology Dr. Linn, last seen 4 months ago. Past medical history: As above For surgical history: Multiple surgery left foot, amputation all left toes Social history: Denies any smoking, EtOH or illicit drug use Family history: Mother-dm 2,HOCM, father -dm 2, HTN Allergy: Acetaminophen, mushroom, onion, pork, TMP SMX PCP: [facility]( Wolf Enciso) Home medication: Aripiprazole, aspirin, atorvastatin, gabapentin, glipizide, insulin lispro, glargine, lisinopril, paroxetine. Review of Systems Constitutional: Yes: Malaise; No: Fever, Chills, Sweats, Weakness, Other Eyes: No: Pain, Vision change, Conjunctivae inflammation, Eyelid inflammation, Other, Redness ENT: No: Ear pain, Ear discharge, Nose pain, Nose discharge, Nose congestion, Mouth pain, Mouth swelling, Throat pain, Throat swelling, Other Respiratory: No: Cough, Dry, Shortness of breath, SOB with excertion, Wheezing, Hemoptysis, Pleuritic Pain, Sputum, Wheezing, Other Cardiovascular: No: Chest Pain, Palpitations, Orthopnea, Paroxysmal Noc. Dysp emanuel, Edema, Lt Headedness, Other Gastrointestinal: No: Nausea, Vomiting, Abdominal Pain, Diarrhea, Constipation, Melena, Hematochezia, Other Genitourinary: No Dysuria, No Frequency, No Incontinence, No Hematuria, No Retention, No Other Musculoskeletal: foot pain (Swollen, wound VAC in place); No: other, neck pain, shoulder pain, arm pain, back pain, hand pain, leg pain Skin: No: Rash, Lesions, Jaundice, Bruising, Other Neurological: No: Weakness, Numbness, Incoordination, Change in speech, Confusion, Seizures, Other Allergies: Coded Allergies: Mushroom (Verified Allergy, Severe, 06/05/25) Onion (Verified Allergy, Severe, 06/05/25) Pork Allergy (Obsolete) (Verified Allergy, Severe, 12/31/20) Fish Allergy (Verified Allergy, Intermediate, 12/31/20) Acetaminophen (Verified Allergy, Unknown, 08/07/24) Sulfamethoxazole w/Trimethoprim (Verified Allergy, Unknown, 08/07/24) Medications Current Medications Medications Dose Ordered Sig/Tj Route Start Time Stop Time Status Last Admin Dose Admin Sodium Chloride 1,000 ml @ 120 mls/hr Q8H20M IV 06/05/25 21:15 UNV Enoxaparin Sodium 40 mg DAILY SC 06/06/25 10:00 UNV Zinc Sulfate 220 mg DAILY PO 06/06/25 10:00 UNV Ascorbic Acid 500 mg BID PO 06/05/25 22:00 UNV Piperacillin Sod/ Tazobactam Sod 100 ml @ 25 mls/hr Q8HR IV 06/05/25 22:00 UNV Ketorolac Tromethamine 15 mg Q6HPRN PRN IV 06/05/25 21:15 06/10/25 21:14 UNV Insulin Glargine 20 units HS SC 06/05/25 22:00 UNV Diagnostic Test (Pha) 1 strip ACHS 06/05/25 22:00 UNV Insulin Human Regular HS SC 06/05/25 22:00 UNV Insulin Human Regular AC SC 06/06/25 07:00 UNV Dextrose 50 ml UD PRN IV 06/05/25 21:15 UNV Lisinopril 10 mg DAILY PO 06/06/25 10:00 UNV Exam Vital Signs Vital Signs Date Time Temp Pulse Resp B/P (MAP) Pulse Ox O2 Delivery O2 Flow Rate FiO2 06/05/25 20:26 Room Air* 0 21 06/05/25 17:22 98.0 101 15 162/82 (108) 99 98.0 General Appearance: Alert, Oriented X3, moderate distress HEENT: Atraumatic, PERRLA, EOMI Respiratory: Clear to auscultation, Normal air movement Cardiovascular: Regular rate, Normal S1, Normal S2, No murmurs Abdominal: Normal bowel sounds, Soft, No tenderness, No hepatospenomegaly Extremities: No clubbing, No cyanosis, Other (Left foot swollen, tender on deep palpation, wound VAC in place) Labs/Xrays Labs Test 06/05/25 19:03 06/05/25 17:54 06/05/25 17:17 Range/Units Lactic Acid Level 3.0 *H 0.4-2.0 mmol/L White Blood Count 10.5 4.4-10.8 10^3/uL Red Blood Count 5.10 4.0-5.20 10^6/uL Hemoglobin 14.4 12.2-16.2 g/dL Hematocrit 43.4 36.0-46.0 % Mean Corpuscular Volume 85.1 80.0-100.0 fL Mean Corpuscular Hemoglobin 28.3 28.0-32.0 pg Mean Corpuscular Hemoglobin Concent 33.2 32.0-36.0 g/dL Red Cell Distribution Width 16.8 H 11.8-14.3 % Platelet Count 211 140-450 10^3/uL Mean Platelet Volume 9.2 6.9-10.8 fL Neutrophils (%) (Auto) 87.1 H 37.0-80.0 % Lymphocytes (%) (Auto) 10.7 10.0-50.0 % Monocytes (%) (Auto) 2.0 0.0-12.0 % Eosinophils (%) (Auto) 0.0 0.0-7.0 % Basophils (%) (Auto) 0.2 0.0-2.0 % Neutrophils # (Auto) 9.1 H 1.6-8.6 10 ^3/uL Lymphocytes # (Auto) 1.1 0.4-5.4 10 ^3/uL Monocytes # (Auto) 0.2 0-1.3 10 ^3/uL Eosinophils # (Auto) 0 0-0.8 10 ^3/uL Basophils # (Auto) 0 0-0.2 10 ^3/uL Nucleated Red Blood Cells 0.1 % Erythrocyte Sedimentation Rate 32 H 0-20 mm/hr Sodium Level 134 L 136-145 mmol/L Potassium Level 4.9 3.5-5.1 mmol/L Chloride Level 98 98-107 mmol/L Carbon Dioxide Level 22 20-31 mmol/L Anion Gap 14 5-15 Blood Urea Nitrogen 15 9-23 mg/dL Creatinine 0.82 0.550-1.02 mg/dL Glomerular Filtration Rate Calc 92 >90 mL/min BUN/Creatinine Ratio 18.3 10.0-20.0 Serum Glucose 530 *H 74-106 mg/dL Calcium Level 9.2 8.7-10.4 mg/dL C-Reactive Protein High Sensitivity 1.17 H <1.0 mg/dL Beta-Hydroxybutyric Acid 0.748 H < 0.4 mmol/L POC Glucose 541 *H 70-106 mg/dl SEPSIS Sepsis Screen Date sepsis recognized/suspect: Jun 05, 2025 Time Sepsis recognized/suspect: 1705 Recent Procedure: No On Antibiotic Therapy: No Respiratory Rate >20: No Heart Rate >90: No Temp<36 C (96.8 F) or >38.3 C: No SBP <90 or MAP <65 mmHG: No New Acute Mental Status Change: No Is the patient on CPAP, BIPAP,: No Physician Orders Blood Culture (06/05/25 17:34) Admit (06/05/25 21:13) Code Status (06/05/25 21:13) Sodium Chloride 0.9% (06/05/25 21:15) Enoxaparin Sodium (Lovenox) (06/06/25 10:00) Zinc Sulfate (06/06/25 10:00) Ascorbic Acid Tablet (Vitamin C Tablet) (06/05/25 22:00) Notify Of Changes From Base (06/05/25 21:13) Ct L Foot Wo Contrast (06/05/25 21:13) Piperacillin-Tazob 3.375gm (Zosyn 3.375g (06/05/25 22:00) Ketorolac Injection (Toradol Injection) (06/05/25 21:15) Drug Screen (06/05/25 21:13) Covid19 Antigen Cinthia (06/05/25 ) Mrsa Screen (06/05/25 21:13) Insulin Lantus (Glargine) (Lantus) (06/05/25 22:00) Glucose Blood (Accu-Chek Comfort Curve T (06/05/25 22:00) Insulin R (Human) (Insulin R) (06/05/25 22:00) Insulin R (Human) (Insulin R) (06/06/25 07:00) Dextrose 50% Syringe (06/05/25 21:15) Lisinopril Tablet (Zestril Tablet) (06/05/25 21:15) Lisinopril Tablet (Zestril Tablet) (06/06/25 10:00) Vital Signs Date Time Temp Pulse Resp B/P (MAP) Pulse Ox O2 Delivery O2 Flow Rate FiO2 06/05/25 20:26 Room Air* 0 21 06/05/25 17:22 98.0 101 15 162/82 (108) 99 98.0 06/05/25 17:19 105 06/05/25 17:03 98.3 105 18 172/118 99 98.3 Laboratory Tests Test 06/05/25 17:54 06/05/25 19:03 Lactic Acid Level 3.4 mmol/L (0.4-2.0) *H 3.0 mmol/L (0.4-2.0) *H White Blood Count 10.5 10^3/uL (4.4-10.8) Medications Medications Dose Ordered Sig/Tj Route Start Time Stop Time Status Last Admin Dose Admin Insulin Human Regular 10 units ONCE ONCE IV 06/05/25 17:45 06/05/25 17:46 DC 06/05/25 20:14 10 UNITS Levofloxacin/ Dextrose 100 ml @ 100 mls/hr ONCE ONCE IV 06/05/25 17:45 06/05/25 18:44 DC 06/05/25 20:15 100 MLS/HR Sodium Chloride 1,000 ml @ 1,000 mls/hr Q1H ONCE IV 06/05/25 17:45 06/05/25 18:44 DC 06/05/25 20:14 1,000 MLS/HR Assessment/Plan Assessment/Plan Sepsis due to left foot cellulitis Gram-positive/Gram-negative History of osteomyelitis of posterior medial calcaneus Suspected osteomyelitis Patient history of left foot on with multiple surgery In ER patient received NSS levofloxacin, regular insulin 10 units, NSS. No leukocytosis but left-shifted ESR 32, CRP 1.17 Lactic acidosis Started Zosyn IV antibiotic IVF UA and urine, UDS IV Pain management Blood culture wound culture Podiatry follow up as per primary team Wound VAC in place CT left foot Hyperosmolar hyperglycemic state Dm 2 with hyperglycemia During admission blood sugar >450 Beta hydroxybutyric acid 0.748 No anion gap HbA1c Insulin glargine 20 units q.p.m. Insulin moderate sliding scale Monitor blood sugar Hyponatremia sodium 134 BMP Essential hypertension Hyperlipidemia During admission,BP 172/118> 162/82 EKG shows sinus tachycardia, HR 105, QTC 447 Lisinopril 10 mg Atorvastatin Lipid profile Monitor blood pressure Bipolar disorder Depression Aripiprazole Paroxetine Lactic acidosis Lactic acid 3.4> 3.0 IVF Morbid obesity, BMI 48.4 Lifestyle modification GI prophylaxis: Pantoprazole Diet: Carbohydrate consistent diet DVT prophylaxis: Lovenox Goals of care discussions. More than 29 minute spent with patient. Full code status. Case discussed with Dr. Frankel. Plan discussed with: Patient, Other (Nurse) My Orders Orders - TERESA GEORGE RESIDENT Procedure Category Date Status Time Admit ADMIT 06/05/25 Transmitted 21:13 Code Status CODE 06/05/25 Transmitted 21:13 Sodium Chloride 0.9% PHA 06/05/25 Logged 21:15 Enoxaparin Sodium PHA 06/06/25 Logged (Lovenox) 10:00 Zinc Sulfate PHA 06/06/25 Logged 10:00 Ascorbic Acid Tablet PHA 06/05/25 Logged (Vitamin C Tablet) 22:00 Notify Of Changes FRANCIE 06/05/25 In Process From Base 21:13 Ct L Foot Wo Contrast CT 06/05/25 Logged 21:13 Piperacillin-Tazob PHA 06/05/25 Logged 3.375gm (Zosyn 3.375g 22:00 Ketorolac Injection PHA 06/05/25 Logged (Toradol Injection) 21:15 Drug Screen LAB 06/05/25 Logged 21:13 Covid19 Antigen Cinthia LAB 06/05/25 Logged Mrsa Screen ARIANNA 06/05/25 Logged 21:13 Insulin Lantus PHA 06/05/25 Logged (Glargine) (Lantus) 22:00 Glucose Blood PHA 06/05/25 Logged (Accu-Chek Comfort 22:00 Insulin R (Human) PHA 06/05/25 Logged (Insulin R) 22:00 Insulin R (Human) PHA 06/06/25 Logged (Insulin R) 07:00 Dextrose 50% Syringe PHA 06/05/25 Logged 21:15 Lisinopril Tablet PHA 06/05/25 Transmitted (Zestril Tablet) 21:15 Lisinopril Tablet PHA 06/06/25 Transmitted (Zestril Tablet) 10:00 Date of Service: Jun 05, 2025 Billing Provider: KELSIE FRANKEL MD Common Visit Codes: [id number] INP/OBS CARE (HIGH) Secondary Visit Codes: [id number] CARE PLAN 30 MINUTES TERESA GEORGE RESIDENT Jun 05, 2025 21:40
[2025-06-05] MEDS ORDERED: VANCOMYCIN PER PHARMACY 0 MG IV SCH (21:45)
[2025-06-05] MEDS: ASCORBIC ACID 500 MG TAB PO SCH (22:26)
[2025-06-05] MEDS: PIPERACILLIN-TAZOB 3.375GM 100 ML IV SCH (22:26)
[2025-06-05] MEDS: InsuLIN REG 1unit/0.01ml Soln (100units/ml) SC SCH (22:43)
[2025-06-05] MEDS: ACCU-CHEK COMFORT CURVE STRIP VI SCH (22:45)
[2025-06-05] MEDS: INSULIN LANTUS (GLARGINE) 1 /0.01ml (100units/ml) SC SCH (22:46)
[2025-06-05] MEDS: ATORVASTATIN 20 MG TAB PO SCH (22:46)
[2025-06-05 23:08] LABS: Benzodiazephine Screen, Urine Pos (NEGATIVE)
[2025-06-05 23:23] LABS: Amphetamine Screen, Urine Neg (NEGATIVE); Barbiturate Scree,Urine Neg (NEGATIVE); Cannabinoid Screen, Urine Neg (NEGATIVE); Cocaine Screen, Urine Neg (NEGATIVE); Opiate Scree,Urine Neg (NEGATIVE); Phencyclidine Screen, Urine Neg (NEGATIVE)
[2025-06-06] MEDS: GABAPENTIN 300 MG CAP PO SCH (02:30)
[2025-06-06] MEDS: HYDROmorphone HCL 2 MG/ML VL/or syr IV ONE (02:31)
[2025-06-06] MEDS: VANCOMYCIN 1GM/250ML IV ONE ×2 (02:31→02:43)
[2025-06-06] MEDS: SODIUM CHLORIDE 0.9% 1,000 ML IV SCH (02:43)
[2025-06-06 04:06] LABS: COVID19 ANTIGEN SOFIA FIA NEGATIVE (NEGATIVE)
[2025-06-06] MEDS: InsuLIN REG 1unit/0.01ml Soln (100units/ml) SC SCH (06:30)
[2025-06-06] MEDS: INSULIN LISPRO (HUMAN) 100 UNITS/ML ML SC SCH (06:31)
[2025-06-06] MEDS: PANTOPRAZOLE 40 MG TAB PO SCH (06:32)
[2025-06-06 07:18] LABS: Hematocrit 41.4 % (36.0-46.0); Hemoglobin 13.7 g/dL (12.2-16.2); Mean Corpuscular Hemoglobin 28.5 pg (28.0-32.0); Mean Corpuscular Volume 85.9 fL (80.0-100.0); Nucleated Red Blood Cells % 0.0 %
[2025-06-06 07:54] LABS: Alanine Aminotransferase 36 U/L (7-40); Anion Gap 14 (5-15); BUN/Creatinine Ratio 18.8 (10.0-20.0); Blood Urea Nitrogen 15 mg/dL (9-23); Calcium 8.9 mg/dL (8.7-10.4); Carbon Dioxide 21 mmol/L (20-31); Chloride 101 mmol/L (98-107); Potassium 4.1 mmol/L (3.5-5.1); Total Protein 7.3 g/dL (5.7-8.2)
[2025-06-06 07:55] LABS: Albumin 4.2 g/dL (3.2-4.8)
[2025-06-06 07:56] LABS: Cholesterol 149 mg/dL (< 200)
[2025-06-06 07:58] LABS: Alkaline Phosphatase 147 U/L (46-116); Bilirubin, Total 0.3 mg/dL (0.2-1.0); Glucose 396 mg/dL (74-106); HDL Cholesterol 36 mg/dL (40-59); Sodium 136 mmol/L (136-145); Triglycerides 243 mg/dL (< 150)
[2025-06-06 08:15] LABS: Lactic Acid w/Reflex 2.6 mmol/L (0.4-2.0)
[2025-06-06] MEDS ORDERED: ENOXAPARIN SOD 40 MG/0.4 ML SYRINGE SC SCH (10:00)
--- NOTE | 2025-06-06 11:11 | DVHPNRES ---
Progress Note Date Seen: Jun 06, 2025 Resident Creating Document: DANG HAHN RESIDENT Medical Necessity Reason Pt with a Central, PICC or Fol: No Subjective Review of Systems This is a 39 year old female with past medical history of HTN, HLD, DM2 on insulin, osteomyelitis, bipolar disorder, peripheral neuropathy, depression came to ER due to called from PCP office due to wound culture/blood showed growth of Pseudomonas aeruginosa and high blood glucose level. She hold her anti-diabetic meds last 3 days for her surgery. Patient went to [facility] today morning due to skin graft left foot and wound VAC placed and no collection. Associated symptoms headache, malaise, feeling thirsty and blurry vision. As per patient, blood draw and wound culture sent weeks earlier in [facility]([phone]). Patient reported her left foot toes were amputated on several occasion, last one was in February,. Patient had history of going to Podiatry and had injury to the left foot which led to gangrene of the left foot. History of left foot culture on 02/13/2021 growth ESBL sensitive to meropenem/ertapenem/Zosyn,, Acinetobacter, sensitive to gentamicin/ampicillin/sulbactam.. CT left foot on 12/30/2020 showed osteomyelitis of posterior medial calcaneus. Patient had left foot surgery more than 5 times and amputated all left toes. Patient currently denies any nausea, vomiting, chest pain, SOB or any other acute distress. Patient seen by Cardiology earlier this year, stress test and angiogram done which came back negative. Follow-up with endocrinology Dr. Linn, last seen 4 months ago. Initial lab workup revealed WBC 10.5, ESR 32, CRP 1.17, lactic acid 3.4, UDS positive for benzo, Past medical history: HTN, HLD, dm 2 on insulin, osteomyelitis, bipolar disorder, peripheral neuropathy, depression For surgical history: Multiple surgery left foot, amputation all left toes History/Social history: Denies any smoking, EtOH or illicit drug use, Family history: Mother-dm 2,HOCM, father -dm 2, HTN Allergy: Acetaminophen, mushroom, onion, pork, TMP SMX, PCP: [facility]( Wolf Enciso) Cardiovascular- deny acute chest pain or shortness of breath or cough or palpitation Respiratory denies cough or short of breath or wheezing Gastrointestinal- denies any rectal bleeding, nausea or vomiting Neurological- denies acute dysarthria, dysphagia, change in vision Psychiatry- denies depression or SI or HI Skin- denies acute rash or purpura Patient was seen today. Labs and chart reviewed. Patient has awound vac on the left foot. Wound Culture from PCP office revealed Pseudomonas. On Zosyn and Vanco. On Insulin for DM with Hyperglycemia. BS trending down. Ordered Podiatry consult. Pending Blood and Wound CS at hospital. Objective vital signs Vital Sign Date Time Temp Pulse Resp B/P (MAP) Pulse Ox O2 Delivery O2 Flow Rate FiO2 06/06/25 10:13 97.6 86 16 140/87 (104) 99 97.6 06/05/25 20:26 Room Air* 0 21 medications Current Medications Medications Dose Ordered Sig/Tj Route Start Time Stop Time Status Last Admin Dose Admin Sodium Chloride 1,000 ml @ 120 mls/hr Q8H20M IV 06/05/25 21:15 Enoxaparin Sodium 40 mg DAILY SC 06/06/25 10:00 UNV Zinc Sulfate 220 mg DAILY PO 06/06/25 10:00 Ascorbic Acid 500 mg BID PO 06/05/25 22:00 06/05/25 22:26 500 MG Piperacillin Sod/ Tazobactam Sod 100 ml @ 25 mls/hr Q8HR IV 06/05/25 22:00 06/06/25 06:32 25 MLS/HR Ketorolac Tromethamine 15 mg Q6HPRN PRN IV 06/05/25 21:15 06/10/25 21:14 Diagnostic Test (Pha) 1 strip ACHS 06/05/25 22:00 06/06/25 06:30 1 STRIP Insulin Human Regular HS SC 06/05/25 22:00 06/05/25 22:43 10 UNITS Insulin Human Regular AC SC 06/06/25 07:00 06/06/25 06:30 15 UNITS Dextrose 50 ml UD PRN IV 06/05/25 21:15 Lisinopril 10 mg DAILY PO 06/06/25 10:00 Vancomycin HCl 0 ml @ 0 mls/hr PER PHARMACY IV 06/05/25 21:45 Pantoprazole Sodium 40 mg DAILY@0600 PO 06/06/25 06:00 06/06/25 06:32 40 MG Aspirin 81 mg DAILY PO 06/06/25 10:00 Atorvastatin Calcium 10 mg HS PO 06/05/25 22:00 Gabapentin 300 mg BID PO 06/05/25 22:00 06/06/25 02:30 300 MG Paroxetine HCl 10 mg DAILY PO 06/06/25 10:00 Insulin Human Lispro 9 units AC SC 06/06/25 07:00 06/06/25 06:31 9 UNITS Insulin Glargine 20 units BID SC 06/06/25 10:00 Examination General examination- awake, alert, oriented HEENT- PEERLA, no acute nasal discharge Cardiovascular- S1-S2 audible, rate and rhythm regular, no murmur Respiratory- CTAB, no wheeze or rhonchi Gastrointestinal-nontender, bowel sound+. Nondistended Musculoskeletal-no acute joint swelling or tenderness or redness Lower extremity- left lower extremity has a amputated toes, has a wound VAC, status post wound graft, left foot swollen, edematous, left leg swollen+, Neurological- cranial nerves intact, no acute dysarthria or dysphagia Psychiatry- denies depression or SI or HI Skin- no acute rash or purpura laboratory and microbiology Laboratory Tests 06/06/25 06:35 Test 06/06/25 06:35 Range/Units Serum Glucose 396 H 74-106 mg/dL Problem List/Assessment/Plan Problem List/Assessment/Plan Assessment/Plan #Sepsis due to left foot cellulitis /OM Gram-positive/Gram-negative #History of osteomyelitis of posterior medial calcaneus #Suspected osteomyelitis -status post left foot wound grafting at [facility] on 06/05/2025 -wound VAC in-situ on left foot -CT scan of the left foot -continue Zosyn as prescribed -on vancomycin as per pharmacy protocol -wound culture from primary care office revealed Pseudomonas infection -pending wound culture, blood culture -continue IV normal saline as prescribed Pending Podiatry consult -Pending blood and wound CS - [place] Wound consult #Hyperosmolar hyperglycemic state # diabetes mellitus 2 with hyperglycemia -blood sugar -status post IV bolus normal saline -continue IV normal saline as prescribed -on insulin Lantus -on insulin sliding scale -monitor blood sugar level Hyponatremia likely pseudohyponatremia due to hyperglycemia sodium 134 BMP #Essential hypertension #Hyperlipidemia -Lisinopril 10 mg POD Atorvastatin 40 mg p.o. q.h.s. Monitor blood pressure #Bipolar disorder #Depression -resumed home medication Aripiprazole Paroxetine 10 mg p.o. daily Lactic acidosis Lactic acid 3.4> 3.0 -status post IV normal saline bolus -continue IV normal saline as prescribed Morbid obesity, BMI 48.4 -patient is counseled about the effect of obesity on health Lifestyle modification Goals of care, Code status Full Code ; discussed with >15 minutes PUD prophylaxis: Pantoprazole DVT prophylaxis: SCD Plan discussed with Dr. Shipman , nursing staff, Total time spent on patient evaluation, chart review, assessment and plan, discussion discussion >35 minutes Plan discussed with: Patient, Other (RN) My Orders My Orders Orders - DANG HAHN Procedure Category Date Status Time Wound Culture W/ Gs ARIANNA 06/06/25 Logged 06:35 Date of Service: Jun 06, 2025 Billing Provider: ALYSSA SHIPMAN DO Common Visit Codes: [id number] INP/OBS CARE(HIGH) DANG HAHN RESIDENT Jun 06, 2025 11:11 ALYSSA SHIPMAN DO Jun 10, 2025 23:39
--- NOTE | 2025-06-06 11:27 | DVH ---
EXAMINATION: CT CT L FOOT WO CONTRAST INDICATION: Rule out osteomyelitis. Pain and swelling. COMPARISON: LEFT XR FOOT 3+ VIEWS on DOS: 02/16/23, LEFT MR FOOT WITHOUT on DOS: 12/01/22, LEFT CT FOOT WITHOUT on DOS: 12/01/22, LEFT XR FOOT 3+ VIEWS on DOS: 11/29/22, L FOOT COMPLETE XRAY on DOS: 02/12/21 TECHNIQUE: CT of the left foot was performed without contrast. Volume transverse images were obtained reconstructed in multiple planes using bone and soft tissue algorithms. CONTRAST: None. CTDIVOL: 7.75 mGy. DLP: 324.2 mGy-cm FINDINGS: Prior forefoot amputation at the level of the metatarsal heads. Diffuse periostitis surrounding the distal aspect of the 2nd through 5th metatarsals. No acute appearing erosive changes. Diffuse soft tissue edema. No organized fluid collections. Focal area of probable phlegmonous change along the plantar aspect of the hindfoot. No fracture or malalignment. IMPRESSION: Diffuse periostitis at the tips of the 2nd through 5th metatarsals, presumably related to prior amputation. No convincing CT evidence for acute osteomyelitis although given the postsurgical changes MRI would be beneficial for more definitive assessment.
--- NOTE | 2025-06-06 12:52 | DVH ---
Left lower extremity venous duplex Clinical History: Left leg swelling Comparison: LEFT CT FOOT WITH on DOS: 03/25/25, LEFT MR FOOT W/WO on DOS: 02/24/25, LEFT XR FOOT 3+ VIEWS on DOS: 02/16/23, LEFT MR FOOT WITHOUT on DOS: 12/01/22, LEFT CT FOOT WITHOUT on DOS: 12/01/22 Technique: Duplex Doppler evaluation of the deep venous system of the left lower extremity from the common femoral vein to the popliteal vein including color Doppler and spectral/pulsed waveform analysis was performed. Findings: The common femoral vein demonstrates appropriate compressibility and waveform variability. There is compressibility/patency of the great saphenous vein at the proximal thigh. The femoral vein demonstrates appropriate compressibility and waveform variability. The deep femoral vein demonstrates appropriate compressibility and waveform variability. The popliteal vein demonstrates appropriate compressibility and waveform variability. There is normal compressibility at the tibioperoneal trunk. Impression: No left femoropopliteal venous thrombosis.
[2025-06-06 15:59] VITALS: BP 101/34; PULSE 94; RESP 18; TEMP 97.8; O2SAT 99
[2025-06-06] MEDS: VANCOMYCIN 1GM/250ML KIT 250 ML IV ONE (16:24)
[2025-06-06] MEDS ORDERED: INSLANTI SC ×2 (16:29)
[2025-06-06] MEDS ORDERED: FLUC150T47 PO (16:29)
[2025-06-06] MEDS ORDERED: ARIP20TA4 PO (16:29)
[2025-06-06] MEDS ORDERED: EMPA1TAB3 PO (16:29)
[2025-06-06] MEDS ORDERED: GLIP5TAB21 PO (16:29)
[2025-06-06] MEDS ORDERED: FLUO60TA7 PO (16:29)
[2025-06-06] MEDS ORDERED: QUET50TA PO (16:29)
[2025-06-06 17:00] VITALS: BP 101/34; PULSE 91; RESP 17; TEMP 97.8; O2SAT 96
[2025-06-06] MEDS: ZINC SULFATE 220mg CAP or TAB PO SCH (17:50)
[2025-06-06] MEDS: LISINOPRIL 5 MG TAB PO SCH (17:50)
[2025-06-06] MEDS: PARoxetine 20 MG TAB PO SCH (17:50)
[2025-06-06] MEDS: INSULIN LANTUS (GLARGINE) 1 /0.01ml (100units/ml) SC SCH (17:51)
[2025-06-06] MEDS: KETOROLAC TROMETH 30 MG/ML 1ML VIAL IV PRN (18:24)
[2025-06-06 20:00] VITALS: PULSE 87; RESP 18; O2SAT 95
[2025-06-06] MEDS: PIPERACILLIN-TAZOB 3.375GM 100 ML IV SCH (20:05)
[2025-06-06] MEDS: HYDROmorphone HCL 2 MG/ML VL/or syr IV PRN (20:48)
[2025-06-06 21:00] VITALS: BP 144/75; PULSE 87; RESP 18; TEMP 97.1; O2SAT 95
[2025-06-06] MEDS: ATORVASTATIN 20 MG TAB PO SCH (21:46)
[2025-06-06] MEDS ORDERED: VANCOMYCIN 1GM/250ML KIT 250 ML IV SCH (23:00)
[2025-06-06] MEDS: INSULIN LANTUS (GLARGINE) 1 /0.01ml (100units/ml) SC ONE (23:18)
[2025-06-07] VITALS (8 sets, daily range): BP systolic 116–148; BP diastolic 53–90; PULSE 82–99; RESP 17–20; TEMP 97.4–98.3; O2SAT 94–99
[2025-06-07] MEDS: VANCOMYCIN 1GM/250ML KIT 250 ML IV SCH (00:46)
[2025-06-07 08:54] LABS: Hematocrit 39.1 % (36.0-46.0); Hemoglobin 12.8 g/dL (12.2-16.2); Mean Corpuscular Hemoglobin 28.1 pg (28.0-32.0); Mean Corpuscular Volume 86.0 fL (80.0-100.0); Nucleated Red Blood Cells % 0.1 %
[2025-06-07 09:46] LABS: Alanine Aminotransferase 40 U/L (7-40); Albumin 3.5 g/dL (3.2-4.8); Anion Gap 14 (5-15); BUN/Creatinine Ratio 24.7 (10.0-20.0); Blood Urea Nitrogen 18 mg/dL (9-23); Chloride 103 mmol/L (98-107); Potassium 4.1 mmol/L (3.5-5.1); Sodium 137 mmol/L (136-145); Total Protein 5.9 g/dL (5.7-8.2)
[2025-06-07] MEDS: ARIPIPRAZOLE 5 MG PO SCH (10:00)
[2025-06-07 10:04] LABS: Alkaline Phosphatase 125 U/L (46-116); Bilirubin, Total 0.2 mg/dL (0.2-1.0); Calcium 8.7 mg/dL (8.7-10.4); Carbon Dioxide 20 mmol/L (20-31); Glucose 299 mg/dL (74-106)
[2025-06-07 10:32] LABS: Hepatitis B Surface Antigen Negative (Negative)
[2025-06-07 10:53] LABS: Hepatitis C Antibody Negative (Negative)
--- NOTE | 2025-06-07 12:41 | DVHCONRES ---
Date Seen: Jun 07, 2025 Reason for Consultation Left foot wound History of Present Illness This is a 39 year old female with past medical history of HTN, HLD, dm 2 on insulin, osteomyelitis, bipolar disorder, peripheral neuropathy, depression came to ER due to called from PCP office due to wound culture/blood showed growth of Pseudomonas aeruginosa and high blood glucose level. She hold her anti-diabetic meds today for her surgery. Patient went to [facility] today morning due to skin graft left foot and wound VAC placed and no collection. Associated symptoms headache, malaise, feeling thirsty and blurry vision. As per patient, blood draw and wound culture sent weeks earlier in [facility]([phone]). History of left foot culture on 02/13/[address] left foot on 12/30/2020 showed osteomyelitis of posterior medial calcaneus. Patient had left foot surgery more than 5 times and amputated all left toes. Patient currently denies any nausea, vomiting, chest pain, SOB or any other acute distress. Patient seen by Cardiology earlier this year, stress test and angiogram done which came back negative. Follow-up with endocrinology Dr. Linn, last seen 4 months ago. Past Medical History See H&P Past Surgical History See H&P Family History: Cardiomyopathy G8 MOTHER Chronic obstructive pulmonary disease grandma FH: breast cancer grandma Family history: Diabetes mellitus G8 MOTHER G8 BROTHER Family history: Hypertension G8 MOTHER Thyroid disease G8 SISTER Allergies: Coded Allergies: Mushroom (Verified Allergy, Severe, 06/05/25) Onion (Verified Allergy, Severe, 06/05/25) Pork Allergy (Obsolete) (Verified Allergy, Severe, 12/31/20) Fish Allergy (Verified Allergy, Intermediate, 12/31/20) Acetaminophen (Verified Allergy, Unknown, 08/07/24) Sulfamethoxazole w/Trimethoprim (Verified Allergy, Unknown, 08/07/24) Home Meds Active Scripts Insulin Glargine-Yfgn (Insulin Glargine) 100 Unit/Ml Inj, 27 UNIT SC QHSP PRN fo r 10 Days, INJ Prov:NEPTALI RED MD 08/07/24 Insulin Aspart (Insulin Aspart) 100 Unit/Ml Inj, 100 UNIT SC AC PRN, #10 ML per sliding scale Prov:NANDO SMART 06/03/23 Dulaglutide (Trulicity) 1.5 Mg/0.5 Ml Inj, 1.5 MG SC QWEEKLY, #1 INJ Prov:NANDO SMART [facility] 06/03/23 Glipizide (Glipizide Er) 10 Mg Tab, 1 TAB PO DAILY for 30 Days, #30 TAB 1 Refill Prov:KATE PINK MD 01/31/21 Metformin Hydrochloride (Metformin Hcl) 500 Mg Tab, 1000 MG PO BIDWM for 30 Days, #120 TAB Prov:GAVI ORO MD 01/17/21 Lisinopril (Lisinopril) 5 Mg Tab, 5 MG PO DAILY for 30 Days, #30 TAB Prov:GAVI ORO MD 01/17/21 Gabapentin (Gabapentin) 300 Mg Cap, 300 MG PO TID for 30 Days, #90 CAP Prov:GAVI ORO MD 01/17/21 Atorvastatin Calcium (ATORVASTATIN CALCIUM) 10 Mg Tab, 1 TAB PO DAILY, #30 TAB 0 Refills Prov:GAVI ORO MD 01/17/21 Aspirin (Aspir-Low) 81 Mg Tab, 81 MG PO DAILY for 30 Days, #30 TAB Prov:GAVI ORO MD 01/17/21 Reported Medications Insulin Glargine (Lantus) 100 Unit/Ml Inj, 20 UNIT SC QAM, INJ 06/06/25 Insulin Glargine (Lantus) 100 Unit/Ml Inj, 45 UNIT SC QPM, INJ 06/06/25 Glipizide (Glipizide) 5 Mg Tab, 5 MG PO DAILY for 30 Days, MG 06/06/25 Quetiapine Fumerate (Seroquel) 50 Mg Tab, 50 MG PO QPM for 30 Days, MG 06/06/25 Aripiprazole (Abilify) 20 Mg Tab, 10 MG PO DAILY, TAB 06/06/25 Fluoxetine HCl (Fluoxetine) 60 Mg Tab, 60 MG PO DAILY, TAB 06/06/25 Empagliflozin (Jardiance) 25 Mg Tab, 25 MG PO DAILY, TAB 06/06/25 Fluconazole (Fluconazole) 150 Mg Tab, 150 MG PO QWEEKLY, MG 06/06/25 Paroxetine (PAXIL TABLET) 20 Mg Tb, 1 TAB PO DAILY, #30 TAB 5 Refills 01/30/21 Discontinued Reported Medications Aripiprazole (Abilify) 2 Mg Tab, 5 MG PO DAILY, TAB 01/30/21 Current Medications Current Medications Medications (Trade) Dose Ordered Sig/Tj Route PRN Reason Start Time Stop Time Status Last Admin Atorvastatin Calcium (Lipitor) 40 mg HS PO 06/06/25 22:00 06/06/25 21:46 Patient Own Medication 5 mg DAILY PO 06/07/25 10:00 Hydromorphone HCl (Dilaudid Injection) 0.25 mg Q4HPRN PRN IV SEVERE PAIN (7-10 PAIN SCALE) 06/06/25 14:45 06/07/25 09:20 Vancomycin HCl 250 ml @ 250 mls/hr Q6H IV 06/06/25 23:00 06/06/25 22:08 DC Piperacillin Sod/ Tazobactam Sod 100 ml @ 25 mls/hr Q6H IV 06/06/25 18:00 06/07/25 07:33 Vancomycin HCl 250 ml @ 250 mls/hr Q6H IV 06/07/25 00:30 06/07/25 05:59 Quetiapine Fumarate (SEROquel TABLET) 50 mg HS PO 06/07/25 22:00 Fluoxetine HCl (PROzac CAPSULE) 60 mg DAILY PO 06/07/25 10:00 06/07/25 09:24 Insulin Glargine (Lantus) 30 units BID SC 06/07/25 22:00 Vital Signs Vital Signs Date Time Temp Pulse Resp B/P (MAP) Pulse Ox O2 Delivery O2 Flow Rate FiO2 06/07/25 09:50 80 16 101/55 06/07/25 09:15 97.6 98 97.6 06/07/25 08:00 Room Air* 0 21 Physical Exam Dermatological: Skin is dry with mild erythema and some maceration around the wound site No gross deformities noted Mild non-pitting edema present bilaterally Left dorsal lateral wound approximately 9 x 2 x 1 with surrounding epibole and maceration mild erythema Vascular: Dorsalis pedis and posterior tibial pulses are 1+ bilaterally Capillary refill is under 2 seconds Skin temperature is warm bilaterally Neurologic: Protective sensation is absent on the plantar forefoot bilaterally Monofilament testing reveals decreased sensation in multiple plantar sites Musculoskeletal: Range of motion at the ankle and MTP joints is within normal limits. Strength is 5/5 in all tested muscle groups. Gait is antalgic due to offloading of the affected limb. Labs/Diagnostic Data Labs Test 06/07/25 11:52 06/07/25 09:56 06/07/25 05:17 06/06/25 10:44 Range/Units POC Glucose 298 H 70-106 mg/dl Vancomycin Level Trough 10.9 H 5-10 ug/mL White Blood Count 8.7 4.4-10.8 10^3/uL Red Blood Count 4.54 4.0-5.20 10^6/uL Hemoglobin 12.8 12.2-16.2 g/dL Hematocrit 39.1 36.0-46.0 % Mean Corpuscular Volume 86.0 80.0-100.0 fL Mean Corpuscular Hemoglobin 28.1 28.0-32.0 pg Mean Corpuscular Hemoglobin Concent 32.7 32.0-36.0 g/dL Red Cell Distribution Width 16.9 H 11.8-14.3 % Platelet Count 175 140-450 10^3/uL Mean Platelet Volume 9.2 6.9-10.8 fL Neutrophils (%) (Auto) 55.7 37.0-80.0 % Lymphocytes (%) (Auto) 32.1 10.0-50.0 % Monocytes (%) (Auto) 9.6 0.0-12.0 % Eosinophils (%) (Auto) 1.7 0.0-7.0 % Basophils (%) (Auto) 0.9 0.0-2.0 % Neutrophils # (Auto) 4.9 1.6-8.6 10 ^3/uL Lymphocytes # (Auto) 2.8 0.4-5.4 10 ^3/uL Monocytes # (Auto) 0.8 0-1.3 10 ^3/uL Eosinophils # (Auto) 0.1 0-0.8 10 ^3/uL Basophils # (Auto) 0.1 0-0.2 10 ^3/uL Nucleated Red Blood Cells 0.1 % Sodium Level 137 136-145 mmol/L Potassium Level 4.1 3.5-5.1 mmol/L Chloride Level 103 98-107 mmol/L Carbon Dioxide Level 20 20-31 mmol/L Anion Gap 14 5-15 Blood Urea Nitrogen 18 9-23 mg/dL Creatinine 0.73 0.550-1.02 mg/dL Glomerular Filtration Rate Calc 106 >90 mL/min BUN/Creatinine Ratio 24.7 H 10.0-20.0 Serum Glucose 299 H 74-106 mg/dL Calcium Level 8.7 8.7-10.4 mg/dL Total Bilirubin 0.2 0.2-1.0 mg/dL Aspartate Amino Transferase (AST) 34 13-40 U/L Alanine Aminotransferase (ALT) 40 7-40 U/L Alkaline Phosphatase 125 H 46-116 U/L Total Protein 5.9 5.7-8.2 g/dL Albumin 3.5 3.2-4.8 g/dL Hepatitis B Surface Antigen Negative Negative Hepatitis C Antibody Negative Negative Lactic Acid Level 2.4 *H 0.4-2.0 mmol/L Test 06/06/25 06:35 06/06/25 02:43 06/05/25 17:54 06/05/25 17:43 Range/Units Hemoglobin A1c 12.5 H <5.7 % A1C Triglycerides Level 243 H < 150 mg/dL Cholesterol Level 149 < 200 mg/dL LDL Cholesterol 72 < 100 mg/dL HDL Cholesterol 36 L 40-59 mg/dL Vitamin B12 Level 370 211-911 pg/mL Vitamin D 25-Hydroxy 37.6 30.0-100 ng/mL Thyroid Stimulating Hormone (TSH) 3.15 0.55-4.78 uIU/mL Influenza Type A Antigen Negative Negative Influenza Type B Antigen Negative Negative SARS-CoV-2 Antigen (Rapid) Negative NEGATIVE Erythrocyte Sedimentation Rate 32 H 0-20 mm/hr C-Reactive Protein High Sensitivity 1.17 H <1.0 mg/dL Beta-Hydroxybutyric Acid 0.748 H < 0.4 mmol/L Urine Opiates Screen Neg NEGATIVE Urine Fentanyl Screen Neg NEGATIVE Urine Barbiturates Screen Neg NEGATIVE Urine Phencyclidine Screen Neg NEGATIVE Urine Amphetamines Screen Neg NEGATIVE Urine Benzodiazepines Screen Pos NEGATIVE Urine Cocaine Screen Neg NEGATIVE Urine Cannabinoids Screen Neg NEGATIVE Microbiology Date/Time Source Procedure Growth Status 06/05/25 17:59 Blood Blood Culture - Preliminary NO GROWTH AFTER 24 HOURS OF INCUBATION. Resulted Problems(with codes): (1) Abscess of abdominal wall (2) Cellulitis of abdominal wall (3) HTN (hypertension) (4) Hyperglycemia (5) Uncontrolled diabetes mellitus (6) Amphetamine abuse (7) Osteomyelitis (8) Pseudomonas aeruginosa infection (9) MDR Acinetobacter baumannii infection (10) Left foot infection (11) Preoperative clearance (12) Pre-operative exam (13) Diabetic foot ulcer (14) Uncontrolled diabetes mellitus (15) Diabetes (16) Bacterial infection due to Pseudomonas (17) Foot osteomyelitis, left (18) Diabetic infection of left foot (19) Diabetes mellitus with hyperglycemia Plan/Recommendation ASSESSMENT: Patient is a 39 year old seen on the floor for a worsening ulcer PLAN: - The patients chart was reviewed, clinical findings were discussed with the patient, the etiologies of the conditions were discussed in detail, and a treatment plan was agreed to at this time, with both oral and written instructions provided. - reviewed advanced imaging - recommend 6 weeks IV antibiotics - continue the wound VAC - we are going to getting home health come out and change 3 times a week - follow up with her crimp setter after discharge - no surgical intervention recommended at this point All questions were answered and concerns addressed to the patient's satisfaction. The patient was given the phone number to the clinic and was told how to make contact with the clinic should any concerns or questions arise. Patient understands that if any questions or concerns arise prior to the next appointment, we should be contacted immediately. FOLLOW-UP: Continue to follow while inpatient Plan discussed with: Patient Visit Coding Podiatry Date of Service if different f: Jun 07, 2025 Billing Provider: MARLENE PURI DPM Podiatry Common Visit Codes: CONSULT ONLY Podiatry Consult Codes: 89674-VQ/OBS CONSLTJ NEW/EST HI 80 MARLENE PURI DPM Jun 07, 2025 12:41
[2025-06-07 17:04] LABS: INR 1.05 (0.9-1.15); Partial Thromboplastin Time 24.3 SEC (24.5-34.5); Prothrombin Time 11.1 sec (9.3-11.8)
--- NOTE | 2025-06-07 19:47 | DVHPNRES ---
Progress Note Date Seen: Jun 07, 2025 Resident Creating Document: ROSIO PEÑALOZA RESIDENT Medical Necessity Reason Pt with a Central, PICC or Fol: No Subjective Review of Systems This is a 39 year old female with past medical history of HTN, HLD, DM2 on insulin, osteomyelitis, bipolar disorder, peripheral neuropathy, depression came to ER due to called from PCP office due to wound culture/blood showed growth of Pseudomonas aeruginosa and high blood glucose level. She hold her anti-diabetic meds last 3 days for her surgery. Patient went to [facility] today morning due to skin graft left foot and wound VAC placed and no collection. Associated symptoms headache, malaise, feeling thirsty and blurry vision. As per patient, blood draw and wound culture sent weeks earlier in [facility]([phone]). Patient reported her left foot toes were amputated on several occasion, last one was in February,. Patient had history of going to Podiatry and had injury to the left foot which led to gangrene of the left foot. History of left foot culture on 02/13/2021 growth ESBL sensitive to meropenem/ertapenem/Zosyn,, Acinetobacter, sensitive to gentamicin/ampicillin/sulbactam.. CT left foot on 12/30/2020 showed osteomyelitis of posterior medial calcaneus. Patient had left foot surgery more than 5 times and amputated all left toes. Patient currently denies any nausea, vomiting, chest pain, SOB or any other acute distress. Patient seen by Cardiology earlier this year, stress test and angiogram done which came back negative. Follow-up with endocrinology Dr. Linn, last seen 4 months ago. Initial lab workup revealed WBC 10.5, ESR 32, CRP 1.17, lactic acid 3.4, UDS positive for benzo, Past medical history: HTN, HLD, dm 2 on insulin, osteomyelitis, bipolar disorder, peripheral neuropathy, depression For surgical history: Multiple surgery left foot, amputation all left toes History/Social history: Denies any smoking, EtOH or illicit drug use, Family history: Mother-dm 2,HOCM, father -dm 2, HTN Allergy: Acetaminophen, mushroom, onion, pork, TMP SMX, PCP: [facility]( Wolf Enciso) Cardiovascular- deny acute chest pain or shortness of breath or cough or palpitation Respiratory denies cough or short of breath or wheezing Gastrointestinal- denies any rectal bleeding, nausea or vomiting Neurological- denies acute dysarthria, dysphagia, change in vision Psychiatry- denies depression or SI or HI Skin- denies acute rash or purpura Patient was seen today. Labs and chart reviewed. Patient has a wound vac on the left foot. Wound Culture from PCP office revealed Pseudomonas, multisensible, only resistant to ciprofloxacin. On Zosyn and Vanco. We are transitioning to meropenem due to plan for home IV AB. Dr Erwin saw the patient and stated she need 6 wk of IV AB, no need of surgery. Sugars are very hard to control because the patient is eating food from outside, she is educated on the risks of the uncontrolled diabetes, insulin is now 30 UI BID Objective vital signs Vital Sign Date Time Temp Pulse Resp B/P (MAP) Pulse Ox O2 Delivery O2 Flow Rate FiO2 06/07/25 16:48 89 17 126/75 06/07/25 16:45 97.7 95 97.7 06/07/25 08:00 Room Air* 0 21 Total Intake and Output 06/06/25 06/06/25 06/07/25 15:00 23:00 07:00 Intake Total 50 ml 800 ml Balance 50 ml 800 ml medications Current Medications Medications Dose Ordered Sig/Tj Route Start Time Stop Time Status Last Admin Dose Admin Sodium Chloride 1,000 ml @ 120 mls/hr Q8H20M IV 06/05/25 21:15 06/07/25 16:28 120 MLS/HR Enoxaparin Sodium 40 mg DAILY SC 06/06/25 10:00 UNV Zinc Sulfate 220 mg DAILY PO 06/06/25 10:00 06/07/25 09:22 220 MG Ascorbic Acid 500 mg BID PO 06/05/25 22:00 06/07/25 09:20 500 MG Ketorolac Tromethamine 15 mg Q6HPRN PRN IV 06/05/25 21:15 06/10/25 21:14 06/06/25 18:24 15 MG Diagnostic Test (Pha) 1 strip ACHS 06/05/25 22:00 06/07/25 18:26 1 STRIP Insulin Human Regular HS SC 06/05/25 22:00 06/06/25 22:03 10 UNITS Insulin Human Regular AC SC 06/06/25 07:00 06/07/25 18:27 9 UNITS Dextrose 50 ml UD PRN IV 06/05/25 21:15 Lisinopril 10 mg DAILY PO 06/06/25 10:00 Vancomycin HCl 0 ml @ 0 mls/hr PER PHARMACY IV 06/05/25 21:45 Pantoprazole Sodium 40 mg DAILY@0600 PO 06/06/25 06:00 06/07/25 05:59 40 MG Aspirin 81 mg DAILY PO 06/06/25 10:00 06/07/25 09:22 81 MG Gabapentin 300 mg BID PO 06/05/25 22:00 06/07/25 09:21 300 MG Atorvastatin Calcium 40 mg HS PO 06/06/25 22:00 06/06/25 21:46 40 MG Patient Own Medication 5 mg DAILY PO 06/07/25 10:00 Hydromorphone HCl 0.25 mg Q4HPRN PRN IV 06/06/25 14:45 06/07/25 16:48 0.25 MG Vancomycin HCl 250 ml @ 250 mls/hr Q6H IV 06/07/25 00:30 06/07/25 12:24 250 MLS/HR Quetiapine Fumarate 50 mg HS PO 06/07/25 22:00 Fluoxetine HCl 60 mg DAILY PO 06/07/25 10:00 06/07/25 09:24 60 MG Insulin Glargine 30 units BID SC 06/07/25 22:00 Meropenem 50 ml @ 17 mls/hr Q8HR IV 06/07/25 22:00 Examination General examination- awake, alert, oriented HEENT- PEERLA, no acute nasal discharge Cardiovascular- S1-S2 audible, rate and rhythm regular, no murmur Respiratory- CTAB, no wheeze or rhonchi Gastrointestinal-nontender, bowel sound+. Nondistended Musculoskeletal-no acute joint swelling or tenderness or redness Lower extremity- left lower extremity has a amputated toes, has a wound VAC, status post wound graft, left foot swollen, edematous, left leg swollen+, Neurological- cranial nerves intact, no acute dysarthria or dysphagia Psychiatry- denies depression or SI or HI Skin- no acute rash or purpura laboratory and microbiology Laboratory Tests 06/07/25 05:17 Test 06/07/25 05:17 Range/Units Serum Glucose 299 H 74-106 mg/dL Microbiology Date/Time Source Procedure Growth Status 06/05/25 17:59 Blood Blood Culture - Preliminary NO GROWTH AFTER 48 HOURS OF INCUBATION. Resulted Problem List/Assessment/Plan Problem List/Assessment/Plan #Sepsis due to left foot cellulitis /OM Gram-positive/Gram-negative #History of osteomyelitis of posterior medial calcaneus #Suspected osteomyelitis -status post left foot wound grafting at [facility] on 06/05/2025 -wound VAC in-situ on left foot -CT scan of the left foot 05/1925: Patient has a wound vac on the left foot. Wound Culture from PCP office revealed Pseudomonas, multisensible, only resistant to ciprofloxacin. On Zosyn and Vanco. We are transitioning to meropenem due to plan for home IV AB. Dr Erwin saw the patient and stated she need 6 wk of IV AB, no need of surgery. Sugars are very hard to control because the patient is eating food from outside, she is educated on the risks of the uncontrolled diabetes, insulin is now 30 UI BID and moderate sliding scale #Hyperosmolar hyperglycemic state # diabetes mellitus 2 with hyperglycemia -on insulin Lantus -on insulin sliding scale -monitor blood sugar level Hyponatremia likely pseudohyponatremia due to hyperglycemia resolved #Essential hypertension #Hyperlipidemia -Lisinopril 10 mg POD Atorvastatin 40 mg p.o. q.h.s. Monitor blood pressure #Bipolar disorder #Depression -resumed home medication Aripiprazole Paroxetine 10 mg p.o. daily Lactic acidosis Lactic acid 3.4> 3.0 -status post IV normal saline bolus -continue IV normal saline as prescribed Morbid obesity, BMI 48.4 -patient is counseled about the effect of obesity on health Lifestyle modification Goals of care, Code status Full Code ; discussed with >15 minutes PUD prophylaxis: Pantoprazole DVT prophylaxis: SCD Plan discussed with Dr. Aleman Total time spent on patient evaluation, chart review, assessment and plan, discussion discussion >35 minutes Plan discussed with: Patient, Other (rn) My Orders My Orders Orders - ROSIO PEÑALOZA Procedure Category Date Status Time Insulin Lantus PHA 06/07/25 In Process (Glargine) (Lantus) 22:00 * Picc Line Consult CONS 06/07/25 Transmitted 13:42 * Media Strategist CONS 06/07/25 Transmitted Consult Meropenem 1gm Ivpb PHA 06/07/25 In Process (Merrem 1gm/50ml) 22:00 ROSIO PEÑALOZA Jun 07, 2025 19:47
[2025-06-07] MEDS: MEROPENEM 1GM IVPB 50 ML IV SCH (21:49)
[2025-06-07] MEDS: INSULIN LANTUS (GLARGINE) 1 /0.01ml (100units/ml) SC SCH (22:00)
[2025-06-08] VITALS (8 sets, daily range): BP systolic 128–149; BP diastolic 67–87; PULSE 87–98; RESP 17–21; TEMP 97.1–98.7; O2SAT 93–96
[2025-06-08 05:28] LABS: Hematocrit 39.9 % (36.0-46.0); Hemoglobin 13.1 g/dL (12.2-16.2); Mean Corpuscular Hemoglobin 27.8 pg (28.0-32.0); Mean Corpuscular Volume 84.5 fL (80.0-100.0); Nucleated Red Blood Cells % 0.1 %
[2025-06-08 05:53] LABS: Alanine Aminotransferase 38 U/L (7-40); Albumin 3.6 g/dL (3.2-4.8); Anion Gap 10 (5-15); BUN/Creatinine Ratio 20.3 (10.0-20.0); Blood Urea Nitrogen 13 mg/dL (9-23); Calcium 8.8 mg/dL (8.7-10.4); Carbon Dioxide 27 mmol/L (20-31); Chloride 100 mmol/L (98-107); Potassium 4.2 mmol/L (3.5-5.1); Sodium 137 mmol/L (136-145); Total Protein 6.3 g/dL (5.7-8.2)
[2025-06-08 05:57] LABS: Alkaline Phosphatase 130 U/L (46-116); Bilirubin, Total 0.2 mg/dL (0.2-1.0); Glucose 353 mg/dL (74-106)
[2025-06-08] MEDS ORDERED: DEXTROSE (50%) 50ML SYRG IV PRN (07:45)
[2025-06-08] MEDS: INSULIN LANTUS (GLARGINE) 1 /0.01ml (100units/ml) SC SCH (11:19)
[2025-06-08] MEDS: ACCU-CHEK COMFORT CURVE STRIP VI SCH (11:39)
[2025-06-08] MEDS: InsuLIN REG 1unit/0.01ml Soln (100units/ml) SC SCH (11:48)
--- NOTE | 2025-06-08 15:32 | DVHPNRES ---
Progress Note Date Seen: Jun 08, 2025 Resident Creating Document: DANG HAHN RESIDENT Medical Necessity Reason Pt with a Central, PICC or Fol: No Subjective Review of Systems This is a 39 year old female with past medical history of HTN, HLD, DM2 on insulin, osteomyelitis, bipolar disorder, peripheral neuropathy, depression came to ER due to called from PCP office due to wound culture/blood showed growth of Pseudomonas aeruginosa and high blood glucose level. She hold her anti-diabetic meds last 3 days for her surgery. Patient went to [facility] today morning due to skin graft left foot and wound VAC placed and no collection. Associated symptoms headache, malaise, feeling thirsty and blurry vision. As per patient, blood draw and wound culture sent weeks earlier in [facility]([phone]). Patient reported her left foot toes were amputated on several occasion, last one was in February,. Patient had history of going to Podiatry and had injury to the left foot which led to gangrene of the left foot. History of left foot culture on 02/13/2021 growth ESBL sensitive to meropenem/ertapenem/Zosyn,, Acinetobacter, sensitive to gentamicin/ampicillin/sulbactam.. CT left foot on 12/30/2020 showed osteomyelitis of posterior medial calcaneus. Patient had left foot surgery more than 5 times and amputated all left toes. Patient currently denies any nausea, vomiting, chest pain, SOB or any other acute distress. Patient seen by Cardiology earlier this year, stress test and angiogram done which came back negative. Follow-up with endocrinology Dr. Linn, last seen 4 months ago. Initial lab workup revealed WBC 10.5, ESR 32, CRP 1.17, lactic acid 3.4, UDS positive for benzo, Past medical history: HTN, HLD, dm 2 on insulin, osteomyelitis, bipolar disorder, peripheral neuropathy, depression For surgical history: Multiple surgery left foot, amputation all left toes History/Social history: Denies any smoking, EtOH or illicit drug use, Family history: Mother-dm 2,HOCM, father -dm 2, HTN Allergy: Acetaminophen, mushroom, onion, pork, TMP SMX, PCP: [facility]( Wolf Enciso) Cardiovascular- deny acute chest pain or shortness of breath or cough or palpitation Respiratory denies cough or short of breath or wheezing Gastrointestinal- denies any rectal bleeding, nausea or vomiting Neurological- denies acute dysarthria, dysphagia, change in vision Psychiatry- denies depression or SI or HI Skin- denies acute rash or purpura Patient was seen today. Labs and chart reviewed. Patient's blood pressure is still elevated fasting 370. Patient's IV antibiotic meropenem and vancomycin. Plan is to discharge patient with IV antibiotic meropenem for 6 weeks for Pseudomonas infection with the wound care. Social service consult in place. Possible discharge tomorrow Objective vital signs Vital Sign Date Time Temp Pulse Resp B/P (MAP) Pulse Ox O2 Delivery O2 Flow Rate FiO2 06/08/25 14:26 89 18 149/87 06/08/25 12:55 98.4 96 98.4 06/07/25 20:00 Room Air* 0 21 Total Intake and Output 06/07/25 06/07/25 06/08/25 15:00 23:00 07:00 Intake Total 100 ml 900 ml 1840 ml Output Total 700 ml Balance 100 ml 200 ml 1840 ml medications Current Medications Medications Dose Ordered Sig/Tj Route Start Time Stop Time Status Last Admin Dose Admin Sodium Chloride 1,000 ml @ 120 mls/hr Q8H20M IV 06/05/25 21:15 06/07/25 16:28 120 MLS/HR Enoxaparin Sodium 40 mg DAILY SC 06/06/25 10:00 UNV Zinc Sulfate 220 mg DAILY PO 06/06/25 10:00 06/08/25 10:36 220 MG Ascorbic Acid 500 mg BID PO 06/05/25 22:00 06/08/25 10:36 500 MG Ketorolac Tromethamine 15 mg Q6HPRN PRN IV 06/05/25 21:15 06/10/25 21:14 06/06/25 18:24 15 MG Lisinopril 10 mg DAILY PO 06/06/25 10:00 06/08/25 10:37 10 MG Vancomycin HCl 0 ml @ 0 mls/hr PER PHARMACY IV 06/05/25 21:45 Pantoprazole Sodium 40 mg DAILY@0600 PO 06/06/25 06:00 06/08/25 06:21 40 MG Aspirin 81 mg DAILY PO 06/06/25 10:00 06/08/25 10:36 81 MG Gabapentin 300 mg BID PO 06/05/25 22:00 06/08/25 10:36 300 MG Atorvastatin Calcium 40 mg HS PO 06/06/25 22:00 06/07/25 21:49 40 MG Patient Own Medication 5 mg DAILY PO 06/07/25 10:00 Hydromorphone HCl 0.25 mg Q4HPRN PRN IV 06/06/25 14:45 06/08/25 14:26 0.25 MG Vancomycin HCl 250 ml @ 250 mls/hr Q6H IV 06/07/25 00:30 06/08/25 12:00 250 MLS/HR Quetiapine Fumarate 50 mg HS PO 06/07/25 22:00 06/07/25 21:50 50 MG Fluoxetine HCl 60 mg DAILY PO 06/07/25 10:00 06/08/25 10:36 60 MG Meropenem 50 ml @ 17 mls/hr Q8HR IV 06/07/25 22:00 06/08/25 14:22 17 MLS/HR Diagnostic Test (Pha) 1 strip Q6HR 06/08/25 12:00 06/08/25 11:39 1 STRIP Insulin Human Regular Q6HR SC 06/08/25 12:00 06/08/25 11:48 16 UNITS Dextrose 50 ml UD PRN IV 06/08/25 07:45 Insulin Glargine 40 units BID SC 06/08/25 10:00 06/08/25 11:19 40 UNITS Examination General examination- awake, alert, oriented HEENT- PEERLA, no acute nasal discharge Cardiovascular- S1-S2 audible, rate and rhythm regular, no murmur Respiratory- CTAB, no wheeze or rhonchi Gastrointestinal-nontender, bowel sound+. Nondistended Musculoskeletal-no acute joint swelling or tenderness or redness Lower extremity- left lower extremity has a amputated toes, has a wound VAC, status post wound graft, left foot swollen, edematous, left leg swollen+, Neurological- cranial nerves intact, no acute dysarthria or dysphagia Psychiatry- denies depression or SI or HI Skin- no acute rash or purpura laboratory and microbiology Laboratory Tests 06/08/25 04:59 Test 06/08/25 04:59 Range/Units Serum Glucose 353 H 74-106 mg/dL Microbiology Date/Time Source Procedure Growth Status 06/05/25 17:59 Blood Blood Culture - Preliminary NO GROWTH AFTER 48 HOURS OF INCUBATION. Resulted Problem List/Assessment/Plan Problem List/Assessment/Plan Assessment/Plan #Sepsis due to left foot cellulitis /OM Gram-positive/Gram-negative #History of osteomyelitis of posterior medial calcaneus #Suspected osteomyelitis -status post left foot wound grafting at [facility] on 06/05/2025 -wound VAC in-situ on left foot -CT scan of the left foot -continue meropenem as prescribed -on vancomycin as per pharmacy protocol -wound culture from primary care office revealed Pseudomonas infection, resistant to ciprofloxacin -status post podiatry consult, recommended for 6 weeks of IV antibiotic with the wound care. Follow up with the patient's own podiatry - blood culture no growth so far - Ordered Wound consult #Hyperosmolar hyperglycemic state # diabetes mellitus 2 with hyperglycemia -hemoglobin A1c 12.5 -on insulin Lantus -on insulin sliding scale Continue IV fluid as prescribed -monitor blood sugar level Hyponatremia likely pseudohyponatremia due to hyperglycemia BMP #Essential hypertension #Hyperlipidemia -Lisinopril 10 mg POD Atorvastatin 40 mg p.o. q.h.s. Monitor blood pressure #Bipolar disorder #Depression -resumed home medication Aripiprazole Paroxetine 10 mg p.o. daily Lactic acidosis resolved Lactic acid 3.4> 3.0 -continue IV normal saline as prescribed Morbid obesity, BMI 48.4 -patient is counseled about the effect of obesity on health Lifestyle modification Goals of care, Code status Full Code ; discussed with >15 minutes PUD prophylaxis: Pantoprazole DVT prophylaxis: SCD Plan discussed with , nursing staff, RN, caregiver Total time spent on patient evaluation, chart review, assessment and plan, discussion discussion >35 minutes Plan discussed with: Patient, Other (RN, caregiver) My Orders My Orders Orders - DANG HAHN Procedure Category Date Status Time Glucose Blood PHA 06/08/25 In Process (Accu-Chek Comfort 12:00 Insulin R (Human) PHA 06/08/25 In Process (Insulin R) 12:00 Dextrose 50% Syringe PHA 06/08/25 In Process 07:45 DANG HAHN RESIDENT Jun 08, 2025 15:31
[2025-06-09] MEDS: VANCOMYCIN 1.25GM/250ML 250 ML IV SCH (00:49)
[2025-06-09 01:00] VITALS: BP 128/81; PULSE 67; RESP 15; TEMP 98.1; O2SAT 97
[2025-06-09 05:00] VITALS: BP 116/79; PULSE 84; RESP 17; TEMP 97.9; O2SAT 96
[2025-06-09 06:07] LABS: Hematocrit 37.8 % (36.0-46.0); Hemoglobin 12.7 g/dL (12.2-16.2); Mean Corpuscular Hemoglobin 28.3 pg (28.0-32.0); Mean Corpuscular Volume 84.4 fL (80.0-100.0); Nucleated Red Blood Cells % 0.1 %
[2025-06-09 06:36] LABS: Alanine Aminotransferase 30 U/L (7-40); Albumin 3.5 g/dL (3.2-4.8); Alkaline Phosphatase 108 U/L (46-116); Anion Gap 9 (5-15); BUN/Creatinine Ratio 22.4 (10.0-20.0); Blood Urea Nitrogen 15 mg/dL (9-23); Calcium 8.6 mg/dL (8.7-10.4); Carbon Dioxide 27 mmol/L (20-31); Chloride 99 mmol/L (98-107); Glucose 304 mg/dL (74-106); Magnesium 1.5 mg/dL (1.6-2.6); Potassium 4.2 mmol/L (3.5-5.1); Sodium 135 mmol/L (136-145); Total Protein 6.1 g/dL (5.7-8.2)
[2025-06-09 06:37] LABS: Bilirubin, Total 0.2 mg/dL (0.2-1.0)
[2025-06-09 08:00] VITALS: PULSE 90; RESP 17; O2SAT 96
[2025-06-09] MEDS ORDERED: LIDOCAINE 1% (LOCAL ANESTH.) PF 5ml SDV ID ONE (08:00)
[2025-06-09 08:40] VITALS: BP 125/76; PULSE 90; RESP 20; TEMP 98.3; O2SAT 95
[2025-06-09] MEDS: SODIUM CHLOR 0.9% PF (SALINE LOCK) 10ML VIAL/SYR IV SCH (10:42)
[2025-06-09] MEDS: MAGNESIUM SULFATE 1GM/100ML 100 ML IV SCH (12:21)
--- NOTE | 2025-06-09 12:30 | DVHDSRES ---
Discharge Summary Date of Admission Resident Creating Document: DANG HAHN RESIDENT Jun 05, 2025 at 21:13 Date of Discharge: Jun 09, 2025 Admitting Diagnosis #Sepsis due to left foot cellulitis /OM Gram-positive/Gram-negative #Hyperosmolar hyperglycemic state # diabetes mellitus 2 with hyperglycemia Labs/Diagnostic Data: Laboratory Results Test 06/09/25 11:17 06/09/25 10:35 06/09/25 05:19 06/07/25 15:40 Vancomycin Level Trough 3.9 ug/mL (5-10) POC Glucose 306 mg/dl (70-106) White Blood Count 8.1 10^3/uL (4.4-10.8) Red Blood Count 4.49 10^6/uL (4.0-5.20) Hemoglobin 12.7 g/dL (12.2-16.2) Hematocrit 37.8 % (36.0-46.0) Mean Corpuscular Volume 84.4 fL (80.0-100.0) Mean Corpuscular Hemoglobin 28.3 pg (28.0-32.0) Mean Corpuscular Hemoglobin Concent 33.6 g/dL (32.0-36.0) Red Cell Distribution Width 16.4 % (11.8-14.3) Platelet Count 168 10^3/uL (140-450) Mean Platelet Volume 8.9 fL (6.9-10.8) Neutrophils (%) (Auto) 55.4 % (37.0-80.0) Lymphocytes (%) (Auto) 33.3 % (10.0-50.0) Monocytes (%) (Auto) 9.2 % (0.0-12.0) Eosinophils (%) (Auto) 1.7 % (0.0-7.0) Basophils (%) (Auto) 0.4 % (0.0-2.0) Neutrophils # (Auto) 4.5 10 ^3/uL (1.6-8.6) Lymphocytes # (Auto) 2.7 10 ^3/uL (0.4-5.4) Monocytes # (Auto) 0.7 10 ^3/uL (0-1.3) Eosinophils # (Auto) 0.1 10 ^3/uL (0-0.8) Basophils # (Auto) 0 10 ^3/uL (0-0.2) Nucleated Red Blood Cells 0.1 % Sodium Level 135 mmol/L (136-145) Potassium Level 4.2 mmol/L (3.5-5.1) Chloride Level 99 mmol/L (98-107) Carbon Dioxide Level 27 mmol/L (20-31) Anion Gap 9 (5-15) Blood Urea Nitrogen 15 mg/dL (9-23) Creatinine 0.67 mg/dL (0.550-1.02) Glomerular Filtration Rate Calc 113 mL/min (>90) BUN/Creatinine Ratio 22.4 (10.0-20.0) Serum Glucose 304 mg/dL (74-106) Calcium Level 8.6 mg/dL (8.7-10.4) Magnesium Level 1.5 mg/dL (1.6-2.6) Total Bilirubin 0.2 mg/dL (0.2-1.0) Aspartate Amino Transferase (AST) 25 U/L (13-40) Alanine Aminotransferase (ALT) 30 U/L (7-40) Alkaline Phosphatase 108 U/L (46-116) Lactate Dehydrogenase 181 U/L (120-246) Total Protein 6.1 g/dL (5.7-8.2) Albumin 3.5 g/dL (3.2-4.8) Prothrombin Time 11.1 sec (9.3-11.8) Prothrombin Time INR 1.05 (0.9-1.15) Activated Partial Thromboplast Time 24.3 SEC (24.5-34.5) Test 06/07/25 05:17 06/06/25 10:44 06/06/25 06:35 06/06/25 02:43 Hepatitis B Surface Antigen Negative (Negative) Hepatitis C Antibody Negative (Negative) Lactic Acid Level 2.4 mmol/L (0.4-2.0) Hemoglobin A1c 12.5 % A1C (<5.7) Triglycerides Level 243 mg/dL (< 150) Cholesterol Level 149 mg/dL (< 200) LDL Cholesterol 72 mg/dL (< 100) HDL Cholesterol 36 mg/dL (40-59) Vitamin B12 Level 370 pg/mL (211-911) Vitamin D 25-Hydroxy 37.6 ng/mL (30.0-100) Thyroid Stimulating Hormone (TSH) 3.15 uIU/mL (0.55-4.78) Influenza Type A Antigen Negative (Negative) Influenza Type B Antigen Negative (Negative) SARS-CoV-2 Antigen (Rapid) Negative (NEGATIVE) Test 06/05/25 17:54 06/05/25 17:43 Erythrocyte Sedimentation Rate 32 mm/hr (0-20) C-Reactive Protein High Sensitivity 1.17 mg/dL (<1.0) Beta-Hydroxybutyric Acid 0.748 mmol/L (< 0.4) Urine Opiates Screen Neg (NEGATIVE) Urine Fentanyl Screen Neg (NEGATIVE) Urine Barbiturates Screen Neg (NEGATIVE) Urine Phencyclidine Screen Neg (NEGATIVE) Urine Amphetamines Screen Neg (NEGATIVE) Urine Benzodiazepines Screen Pos (NEGATIVE) Urine Cocaine Screen Neg (NEGATIVE) Urine Cannabinoids Screen Neg (NEGATIVE) Other Laboratory Tests 06/09/25 05:19 Brief Hx & Hospital Course: This is a 39 year old female with past medical history of HTN, HLD, DM2 on insulin, osteomyelitis, bipolar disorder, peripheral neuropathy, depression came to ER due to called from PCP office due to wound culture/blood showed growth of Pseudomonas aeruginosa, resistant to ciprofloxacin and high blood glucose level. She hold her anti-diabetic meds last 3 days for her surgery. Patient went to [facility] today morning due to skin graft left foot and wound VAC placed and no collection. Associated symptoms headache, malaise, feeling thirsty and blurry vision. As per patient, blood draw and wound culture sent weeks earlier in [facility]([phone]). Patient reported her left foot toes were amputated on several occasion, last one was in February,. Patient had history of going to Podiatry and had injury to the left foot which led to gangrene of the left foot. History of left foot culture on 02/13/2021 growth ESBL sensitive to meropenem/ertapenem/Zosyn,, Acinetobacter, sensitive to gentamicin/ampicillin/sulbactam.. CT left foot on 12/30/2020 showed osteomyelitis of posterior medial calcaneus. Patient had left foot surgery more than 5 times and amputated all left toes. Patient currently denies any nausea, vomiting, chest pain, SOB or any other acute distress. Patient seen by Cardiology earlier this year, stress test and angiogram done which came back negative. Follow-up with endocrinology Dr. Linn, last seen 4 months ago. Initial lab workup revealed WBC 10.5, ESR 32, CRP 1.17, lactic acid 3.4, UDS positive for benzo. During hospital course patient was treated with IV antibiotic meropenem and vancomycin. Blood culture no growth. Patient was seen by Podiatry recommended 6 weeks of IV antibiotic through PICC line placed on the right arm.. Patient was noncompliant with the treatment, patient was taking food from outside, patient is counseled about the effect of treatment at [facility]. Patient is being discharged home with home health for IV antibiotic meropenem for 6 weeks with wound care. Patient was advised to follow up with PCP, DC clinic and pipe line repairer for on. Patient was also counseled about diet adherence. Patient was hemodynamically stable on discharge, General examination- awake, alert, oriented HEENT- PEERLA, no acute nasal discharge Cardiovascular- S1-S2 audible, rate and rhythm regular, no murmur Respiratory- CTAB, no wheeze or rhonchi Gastrointestinal-nontender, bowel sound+. Nondistended Musculoskeletal-no acute joint swelling or tenderness or redness Lower extremity- left lower extremity has a amputated toes, has a wound VAC, status post wound graft, left foot swollen, edematous, left leg swollen+, Neurological- cranial nerves intact, no acute dysarthria or dysphagia Psychiatry- denies depression or SI or HI Skin- no acute rash or purpura Plan of care discussed with Dr. Aleman Operations or Procedures [place] [id number] Ph: [phone] DIAGNOSTIC IMAGING Diagnostic Imaging Report : [id number] Signed PATIENT: ROSIO MOSQUEDA ACCT: [id number] UNIT: [id number] : 1985 [facility]GE / SEX: 39 / F ADM STATUS: ADM IN SERVICE 12 ORDERING PHYSICIAN: TERESA GEORGE RESIDENT PROCEDURE(s): LFTCT - CT L FOOT WO CONTRAST REASON: Rule out osteomyelitis ORDER NUMBER(s): [id number], ACCESSION NUMBER(s): [id number] EXAMINATION: CT CT L FOOT WO CONTRAST INDICATION: Rule out osteomyelitis. Pain and swelling. COMPARISON: LEFT XR FOOT 3+ VIEWS on DOS: 02/16/23, LEFT MR FOOT WITHOUT on DOS: 12/01/22, LEFT CT FOOT WITHOUT on DOS: 12/01/22, LEFT XR FOOT 3+ VIEWS on DOS: 11/29/22, L FOOT COMPLETE XRAY on DOS: 02/12/21 TECHNIQUE: CT of the left foot was performed without contrast. Volume transverse images were obtained reconstructed in multiple planes using bone and soft tissue algorithms. CONTRAST: None. CTDIVOL: 7.75 mGy. DLP: 324.2 mGy-cm FINDINGS: Prior forefoot amputation at the level of the metatarsal heads. Diffuse periostitis surrounding the distal aspect of the 2nd through 5th metatarsals. No acute appearing erosive changes. Diffuse soft tissue edema. No organized fluid collections. Focal area of probable phlegmonous change along the plantar aspect of the hindfoot. No fracture or malalignment. IMPRESSION: Diffuse periostitis at the tips of the 2nd through 5th metatarsals, presumably related to prior amputation. No convincing CT evidence for acute osteomyelitis although given the postsurgical changes MRI would be beneficial for more definitive assessment. ATED BY: JAIRON LOMBARDI MD DICTATED DATE/TIME: 06/06/251124 SIGNED BY: JAIRON LOMBARDI MD SIGNED DATE/TIME: 06/06/25 112 CC: [place] [phone] Ph: [phone] DIAGNOSTIC IMAGING Diagnostic Imaging Report : [id number] Signed PATIENT: ROSIO MOSQUEDA ACCT: [id number] UNIT: [id number] : 1985 LOC: OVERFLOW ROOM / BED: [address] [place] [address] / AGE / SEX: 39 / F ADM STATUS: ADM IN SERVICE 1111 ORDERING PHYSICIAN: DANG HAHN RESIDENT PROCEDURE(s): LLDVT - LT Lower DVT REASON: Left leg swelling ORDER NUMBER(s): [id number], ACCESSION NUMBER(s): [id number] Left lower extremity venous duplex Clinical History: Left leg swelling Comparison: LEFT CT FOOT WITH on DOS: 03/25/25, LEFT MR FOOT W/WO on DOS: 02/24/25, LEFT XR FOOT 3+ VIEWS on DOS: 02/16/23, LEFT MR FOOT WITHOUT on DOS: 12/01/22, LEFT CT FOOT WITHOUT on DOS: 12/01/22 Technique: Duplex Doppler evaluation of the deep venous system of the left lower extremity from the common femoral vein to the popliteal vein including color Doppler and spectral/pulsed waveform analysis was performed. Findings: The common femoral vein demonstrates appropriate compressibility and waveform variability. There is compressibility/patency of the great saphenous vein at the proximal thigh. The femoral vein demonstrates appropriate compressibility and waveform variability. The deep femoral vein demonstrates appropriate compressibility and waveform variability. The popliteal vein demonstrates appropriate compressibility and waveform variability. There is normal compressibility at the tibioperoneal trunk. Impression: No left femoropopliteal venous thrombosis. ATED BY: JAIRON LOMBARDI MD DICTATED DATE/TIME: 06/06/25 1250 SIGNED BY: JAIRON LOMBARDI MD SIGNED DATE/TIME: 06/06/25 1250 CC: Condition at Discharge: Stable Final Diagnosis/Problems List #Sepsis due to left foot cellulitis /OM Gram-positive/Gram-negative #History of osteomyelitis of posterior medial calcaneus #Suspected osteomyelitis #Hyperosmolar hyperglycemic state # diabetes mellitus 2 with hyperglycemia Hyponatremia likely pseudohyponatremia due to hyperglycemia #Essential hypertension #Hyperlipidemia #Bipolar disorder #Depression Lactic acidosis resolved Morbid obesity, BMI 48.4 Discharge Disposition: Home with Health Services Discharge Instruct/Medications Diet: Consistent carbohydrate, Cardiac 2g Na,low cholest Activity: No Restrictions, As Tolerated Follow Up/Referral: DC clinic PCP Podiatry Medications: As prescribed Scheduled Aripiprazole (Abilify), 10 MG PO DAILY, (Reported) Aspirin (Aspir-Low), 81 MG PO DAILY Atorvastatin Calcium (Atorvastatin Calcium), 1 TAB PO DAILY Dulaglutide (Trulicity), 1.5 MG SC QWEEKLY Empagliflozin (Jardiance), 25 MG PO DAILY, (Reported) Fluconazole (Fluconazole), 150 MG PO QWEEKLY, (Reported) Fluoxetine HCl (Fluoxetine), 60 MG PO DAILY, (Reported) Gabapentin (Gabapentin), 300 MG PO TID Glipizide (Glipizide Er), 1 TAB PO DAILY Glipizide (Glipizide), 5 MG PO DAILY, (Reported) Insulin Glargine (Lantus), 45 UNIT SC QPM, (Reported) Insulin Glargine (Lantus), 20 UNIT SC QAM, (Reported) Lisinopril (Lisinopril), 5 MG PO DAILY Metformin Hydrochloride (Metformin Hcl), 1,000 MG PO BIDWM Paroxetine (Paxil Tablet), 1 TAB PO DAILY, (Reported) Quetiapine Fumerate (Seroquel), 50 MG PO QPM, (Reported) Scheduled PRN Insulin Aspart (Insulin Aspart), 100 UNIT SC AC PRN Insulin Glargine-Yfgn (Insulin Glargine), 27 UNIT SC QHSP PRN Discontinued Medications Aripiprazole (Abilify), 5 MG PO DAILY, (Reported) Discharge Statement: "Patient was advised to return to the ER or call 911 if any headaches, dizziness, shortness of breath, chest pain, abdominal pain, bleeding, fevers, or worsening of medical condition. Patient was counseled about treatment plan, medications, possible side effects, patientverbalized understanding. All questions were answered to the best of my ability. This discharge took greater then 30 minutes in planning, reviewing documentation, counseling the patient, and discussing with other team members." ASSESSMENT ASSESSMENT Assessment DANG HAHN RESIDENT Jun 09, 2025 12:30
[2025-06-09 13:00] VITALS: BP 114/65; PULSE 90; RESP 20; TEMP 98.3; O2SAT 93
[2025-06-09 15:05] VITALS: BP 125/75; PULSE 86; RESP 16; TEMP 36.8; O2SAT 98
== END 2025-06-09 16:44 | disposition home health service (06) | DRG 720 ==
LOC: ER 16:54 → EDBD 16:54 → EDUNIT# 16:54 → OVERFLOW 21:13 → EAST 06-06 14:51
PROVIDERS: ADMIT Internal Medicine Geriatric Medicine; ATTEND Internal Medicine Geriatric Medicine
PROC: 02HV33Z Insertion of Infusion Device into Superior Vena Cava, Percutaneous Approach (ICD-10-PCS; principal; 2025-06-08)
PROC: B548ZZA Ultrasonography of Superior Vena Cava, Guidance (ICD-10-PCS; 2025-06-08)
DX: A41.50 Gram-negative sepsis, unspecified (principal); E87.20 Acidosis, unspecified; B96.5 Pseudomonas (aeruginosa) (mallei) (pseudomallei) as the cause of diseases classified elsewhere; L03.116 Cellulitis of left lower limb; M86.8X7 Other osteomyelitis, ankle and foot; E66.01 Morbid (severe) obesity due to excess calories; F31.9 Bipolar disorder, unspecified; I10 Essential (primary) hypertension; E11.69 Type 2 diabetes mellitus with other specified complication; Z20.822 Contact with and (suspected) exposure to COVID-19; E11.00 Type 2 diabetes mellitus with hyperosmolarity without nonketotic hyperglycemic-hyperosmolar coma (NKHHC); E78.5 Hyperlipidemia, unspecified; E11.42 Type 2 diabetes mellitus with diabetic polyneuropathy; Z68.42 Body mass index [BMI] 45.0-49.9, adult; Z88.6 Allergy status to analgesic agent; Z88.3 Allergy status to other anti-infective agents; Z91.014 Allergy to mammalian meats; Z91.013 Allergy to seafood; Z89.432 Acquired absence of left foot; Z83.3 Family history of diabetes mellitus; Z82.49 Family history of ischemic heart disease and other diseases of the circulatory system; Z80.3 Family history of malignant neoplasm of breast; Z82.5 Family history of asthma and other chronic lower respiratory diseases
CPT/HCPCS: 36415; 36569; 73700; 76937; 80048; 80053; 80061; 80202; 80307; 82010; 82306; 82565; 82607; 82962; 83036; 83605; 83615; 83735; 84443; 85025; 85610; 85652; 85730; 86141; 86803; 87040; 87340; 87426; 87804; 93005; 93971; 96361; 96365; 99291; G0378; J1815; J1885; J1956; J2185; J2543